=== PATIENT | male | born 1955 | race Caucasian/White ===

== ENCOUNTER 2018-06-23 16:35 | Observation (INO) | payer MEDICARE ==
[2018-06-23] VITALS (8 sets, daily range): BP systolic 117–170; BP diastolic 70–83
[~2018-06-23] VITALS: Ht 182.9 cm; Wt 92.6 kg
[~2018-06-23 16:35] MED LIST: ASP81CT PO; BENA40TA59; BENA40TA59 PO; CRANBERRY + VI1 EACH; DULO60CA6; HYDR-34; HYDR1TAB66 PO; IBP800T PO; MTP25TSR PO; OMEP20CA6; OMG1KC PO; SIMV20TA3 PO; SULF1TAB23 PO; SULF1TAB35 PO
--- OUTSIDE RECORDS SUMMARY | 2018-06-23 16:40 | XMS REPORT | Continuity of Care Document ---
Author Author [facility] Address Unknown Phone Unavailable Allergies There is no data. Medications There is no data. Problems Date Dx Coded Attending Type Code Diagnosis Diagnosed By 08/28/2008 SALVATORE MOSLEY MD 300.00 AN ANXIETY UNSPEC 08/28/2008 SALVATORE MOSLEY MD 311 MO DEPRESS NOS 08/28/2008 300.00 AN ANXIETY UNSPEC 08/28/2008 311 MO DEPRESS NOS 08/28/2008 300.00 AN ANXIETY UNSPEC 08/28/2008 311 MO DEPRESS NOS 08/28/2008 MARLOW DO SAMANTA K 300.00 AN ANXIETY UNSPEC 08/28/2008 MARLOW DO SAMANTA K 311 MO DEPRESS NOS 08/28/2008 ELE TORRES SAMANTA K 300.00 AN ANXIETY UNSPEC 08/28/2008 MARLOW DO SAMANTA K 311 MO DEPRESS NOS 08/28/2008 MARLOW DO, SAMANTA K 300.00 AN ANXIETY UNSPEC 08/28/2008 MARLOW DO, SAMANTA K 311 MO DEPRESS NOS 08/28/2008 MARLOW DO SAMANTA K 300.00 AN ANXIETY UNSPEC 08/28/2008 MARLOW DO, SAMANTA K 311 MO DEPRESS NOS 09/24/2008 SALVATORE MOSLEY MD 296.32 MO DEPRESSIVE RECURRENT MODERATE 09/24/2008 296.32 MO DEPRESSIVE RECURRENT MODERATE 09/24/2008 296.32 MO DEPRESSIVE RECURRENT MODERATE 09/24/2008 ZENOBIA MARLOW DOA K 296.32 MO DEPRESSIVE RECURRENT MODERATE 09/24/2008 ELE TORRES SAMANTA K 296.32 MO DEPRESSIVE RECURRENT MODERATE 09/24/2008 ZENOBIA MARLOW DOA K 296.32 MO DEPRESSIVE RECURRENT MODERATE 09/24/2008 ZENOBIA MARLOW DOA K 296.32 MO DEPRESSIVE RECURRENT MODERATE 10/31/2008 SALVATORE MOSLEY MD 307.47 SI DYSSOMNIA NOS 10/31/2008 307.47 SI DYSSOMNIA NOS 10/31/2008 307.47 SI DYSSOMNIA NOS 10/31/2008 MARLOW DO, SAMANTA K 307.47 SI DYSSOMNIA NOS 10/31/2008 MARLOW DO, SAMANTA K 307.47 SI DYSSOMNIA NOS 10/31/2008 MARLOW DO, SAMANTA K 307.47 SI DYSSOMNIA NOS 10/31/2008 MARLOW DO, SAMANTA K 307.47 SI DYSSOMNIA NOS 11/14/2008 SALVATORE MOSLEY MD 296.30 MO DEPRESSIVE RECURRENT UNSPECIFIED 11/14/2008 296.30 MO DEPRESSIVE RECURRENT UNSPECIFIED 11/14/2008 296.30 MO DEPRESSIVE RECURRENT UNSPECIFIED 11/14/2008 MARLOW DO SAMANTA K 296.30 MO DEPRESSIVE RECURRENT UNSPECIFIED 11/14/2008 MARLOW DO, SAMANTA K 296.30 MO DEPRESSIVE RECURRENT UNSPECIFIED 11/14/2008 MARLOW DO SAMANTA K 296.30 MO DEPRESSIVE RECURRENT UNSPECIFIED 11/14/2008 MARLOW DO SAMANTA K 296.30 MO DEPRESSIVE RECURRENT UNSPECIFIED 12/18/2008 DIMITRI ABBASI, SALVATORE 303.90 SA ALCOHOL DEPENDENCE 12/18/2008 303.90 SA ALCOHOL DEPENDENCE 12/18/2008 303.90 SA ALCOHOL DEPENDENCE 12/18/2008 MARLOW DO SAMANTA K 303.90 SA ALCOHOL DEPENDENCE 12/18/2008 MARLOW DO SAMANTA K 303.90 SA ALCOHOL DEPENDENCE 12/18/2008 MARLOW DO, SAMANTA K 303.90 SA ALCOHOL DEPENDENCE 12/18/2008 MARLOW DO SAMANTA K 303.90 SA ALCOHOL DEPENDENCE 01/07/2009 SALVATORE MOSLEY MD 296.31 MO DEPRESSIVE RECURRENT MILD 01/07/2009 296.31 MO DEPRESSIVE RECURRENT MILD 01/07/2009 296.31 MO DEPRESSIVE RECURRENT MILD 01/07/2009 ELE TORRES SAMANTA K 296.31 MO DEPRESSIVE RECURRENT MILD 01/07/2009 ELE TORRES SAMANTA K 296.31 MO DEPRESSIVE RECURRENT MILD 01/07/2009 MARLOW DO SAMANTA K 296.31 MO DEPRESSIVE RECURRENT MILD 01/07/2009 MARLOW DO SAMANTA K 296.31 MO DEPRESSIVE RECURRENT MILD 04/27/2010 SALVATORE MOSLEY MD 338.4 CHRONIC PAIN SYNDROME 04/27/2010 SALVATORE MOSLEY MD 401.1 HYPERTENSION, BENIGN ESSENTIAL 04/27/2010 338.4 CHRONIC PAIN SYNDROME 04/27/2010 401.1 HYPERTENSION, BENIGN ESSENTIAL 04/27/2010 338.4 CHRONIC PAIN SYNDROME 04/27/2010 401.1 HYPERTENSION, BENIGN ESSENTIAL 04/27/2010 MARLOW DO, SAMANTA K 338.4 CHRONIC PAIN SYNDROME 04/27/2010 MARLOW DO, SAMANTA K 401.1 HYPERTENSION, BENIGN ESSENTIAL 04/27/2010 MARLOW DO, SAMANTA K 338.4 CHRONIC PAIN SYNDROME 04/27/2010 MARLOW DO, SAMANTA K 401.1 HYPERTENSION, BENIGN ESSENTIAL 04/27/2010 MARLOW DO, SAMANTA K 338.4 CHRONIC PAIN SYNDROME 04/27/2010 MARLOW DO, SAMANTA K 401.1 HYPERTENSION, BENIGN ESSENTIAL 04/27/2010 MARLOW DO, SAMANTA K 338.4 CHRONIC PAIN SYNDROME 04/27/2010 MARLOW DO, SAMANTA K 401.1 HYPERTENSION, BENIGN ESSENTIAL 05/22/2010 DIMITRI ABBASI, SALVATORE 305.1 TOBACCO ABUSE 05/22/2010 305.1 TOBACCO ABUSE 05/22/2010 305.1 TOBACCO ABUSE 05/22/2010 MARLOW DO, SAMANTA K 305.1 TOBACCO ABUSE 05/22/2010 MARLOW DO, SAMANTA K 305.1 TOBACCO ABUSE 05/22/2010 MARLOW DO, SAMANTA K 305.1 TOBACCO ABUSE 05/22/2010 MARLOW DO, SAMANTA K 305.1 TOBACCO ABUSE 11/11/2010 DIMITRI ABBASI, SALVATORE 601.9 PROSTATITIS UNSPECIFIED 11/11/2010 DIMITRI ABBASI, SALVATORE 790.29 HYPERGLYCEMIA 11/11/2010 601.9 PROSTATITIS UNSPECIFIED 11/11/2010 790.29 HYPERGLYCEMIA 11/11/2010 601.9 PROSTATITIS UNSPECIFIED 11/11/2010 790.29 HYPERGLYCEMIA 11/11/2010 MARLOW DO, SAMANTA K 601.9 PROSTATITIS UNSPECIFIED 11/11/2010 MARLOW DO, SAMANTA K 790.29 HYPERGLYCEMIA 11/11/2010 MARLOW DO, SAMANTA K 601.9 PROSTATITIS UNSPECIFIED 11/11/2010 MARLOW DO, SAMANTA K 790.29 HYPERGLYCEMIA 11/11/2010 MARLOW DO, SAMANTA K 601.9 PROSTATITIS UNSPECIFIED 11/11/2010 MARLOW DO, SAMANTA K 790.29 HYPERGLYCEMIA 11/11/2010 MARLOW DO, SAMANTA K 601.9 PROSTATITIS UNSPECIFIED 11/11/2010 MARLOW DO, SAMANTA K 790.29 HYPERGLYCEMIA 12/04/2010 DIMITRI ABBASI, SALVATORE 466.0 BRONCHITIS, ACUTE 12/04/2010 SALVATORE MOSLEY MD V04.81 Flu Dx (3 Yrs And Above, Im) 12/04/2010 SALVATORE MOSLEY MD V65.42 COUNSELING ON SMOKING CESSATION 12/04/2010 466.0 BRONCHITIS, ACUTE 12/04/2010 V04.81 Flu Dx (3 Yrs And Above, Im) 12/04/2010 V65.42 COUNSELING ON SMOKING CESSATION 12/04/2010 466.0 BRONCHITIS, ACUTE 12/04/2010 V04.81 Flu Dx (3 Yrs And Above, Im) 12/04/2010 V65.42 COUNSELING ON SMOKING CESSATION 12/04/2010 MARLOW DO SAMANTA K 466.0 BRONCHITIS, ACUTE 12/04/2010 MARLOW DO SAMANTA K V04.81 Flu Dx (3 Yrs And Above, Im) 12/04/2010 MARLOW DO SAMANTA K V65.42 COUNSELING ON SMOKING CESSATION 12/04/2010 MARLOW DO SAMANTA K 466.0 BRONCHITIS, ACUTE 12/04/2010 MARLOW DO SAMANTA K V04.81 Flu Dx (3 Yrs And Above, Im) 12/04/2010 MARLOW DO SAMANTA K V65.42 COUNSELING ON SMOKING CESSATION 12/04/2010 MARLOW DO SAMANTA K 466.0 BRONCHITIS, ACUTE 12/04/2010 MARLOW DO SAMANTA K V04.81 Flu Dx (3 Yrs And Above, Im) 12/04/2010 MARLOW DO SAMANTA K V65.42 COUNSELING ON SMOKING CESSATION 12/04/2010 MARLOW DO SAMANTA K 466.0 BRONCHITIS, ACUTE 12/04/2010 MARLOW DO SAMANTA K V04.81 Flu Dx (3 Yrs And Above, Im) 12/04/2010 MARLOW DO SAMANTA K V65.42 COUNSELING ON SMOKING CESSATION 01/25/2011 SALVATORE MOSLEY MD [id number] CHRONIC AIRWAY OBSTRUCTION NOT ELSEWHERE CLASSIFIED 01/25/2011 SALVATORE MOSLEY MD 599.0 Urinary Tract Infection 01/25/2011 496 CHRONIC AIRWAY OBSTRUCTION NOT ELSEWHERE CLASSIFIED 01/25/2011 599.0 Urinary Tract Infection 01/25/2011 496 CHRONIC AIRWAY OBSTRUCTION NOT ELSEWHERE CLASSIFIED 01/25/2011 599.0 Urinary Tract Infection 01/25/2011 SAMANTA MARLOW DO 496 CHRONIC AIRWAY OBSTRUCTION NOT ELSEWHERE CLASSIFIED 01/25/2011 MARLOW DO, SAMANTA K 599.0 Urinary Tract Infection 01/25/2011 MARLOW DO, SAMANTA K 496 CHRONIC AIRWAY OBSTRUCTION NOT ELSEWHERE CLASSIFIED 01/25/2011 MARLOW DO, SAMANTA K 599.0 Urinary Tract Infection 01/25/2011 MARLOW DO, SAMANTA K 496 CHRONIC AIRWAY OBSTRUCTION NOT ELSEWHERE CLASSIFIED 01/25/2011 MARLOW DO, SAMANTA K 599.0 Urinary Tract Infection 01/25/2011 MARLOW DO, SAMANTA K 496 CHRONIC AIRWAY OBSTRUCTION NOT ELSEWHERE CLASSIFIED 01/25/2011 MARLOW DO, SAMANTA K 599.0 Urinary Tract Infection 02/25/2011 DIMITRI ABBASI, SALVATORE 272.4 OTHER AND UNSPECIFIED HYPERLIPIDEMIA 02/25/2011 SALVATORE MOSLEY MD 414.00 CORONARY ATHEROSCLEROSIS OF UNSPECIFIED TYPE OF VESSEL DIOMEDE OR GRAFT 02/25/2011 272.4 OTHER AND UNSPECIFIED HYPERLIPIDEMIA 02/25/2011 414.00 CORONARY ATHEROSCLEROSIS OF UNSPECIFIED TYPE OF VESSEL DIOMEDE OR GRAFT 02/25/2011 272.4 OTHER AND UNSPECIFIED HYPERLIPIDEMIA 02/25/2011 414.00 CORONARY ATHEROSCLEROSIS OF UNSPECIFIED TYPE OF VESSEL DIOMEDE OR GRAFT 02/25/2011 MARLOW DO, SAMANTA K 272.4 OTHER AND UNSPECIFIED HYPERLIPIDEMIA 02/25/2011 MARLOW DO, SAMANTA K 414.00 CORONARY ATHEROSCLEROSIS OF UNSPECIFIED TYPE OF VESSEL DIOMEDE OR GRAFT 02/25/2011 MARLOW DO, SAMANTA K 272.4 OTHER AND UNSPECIFIED HYPERLIPIDEMIA 02/25/2011 MARLOW DO, SAMANTA K 414.00 CORONARY ATHEROSCLEROSIS OF UNSPECIFIED TYPE OF VESSEL DIOMEDE OR GRAFT 02/25/2011 MARLOW DO, SAMANTA K 272.4 OTHER AND UNSPECIFIED HYPERLIPIDEMIA 02/25/2011 MARLOW DO, SAMANTA K 414.00 CORONARY ATHEROSCLEROSIS OF UNSPECIFIED TYPE OF VESSEL DIOMEDE OR GRAFT 02/25/2011 MARLOW DO, SAMANTA K 272.4 OTHER AND UNSPECIFIED HYPERLIPIDEMIA 02/25/2011 MARLOW DO, SAMANTA K 414.00 CORONARY ATHEROSCLEROSIS OF UNSPECIFIED TYPE OF VESSEL DIOMEDE OR GRAFT 04/27/2011 SALVATORE MOSLEY MD 789.00 Abdominal Pain Unspecified Site 04/27/2011 789.00 Abdominal Pain Unspecified Site 04/27/2011 789.00 Abdominal Pain Unspecified Site 04/27/2011 MARLOW DO SAMANTA K 789.00 Abdominal Pain Unspecified Site 04/27/2011 MARLOW DO SAMANTA K 789.00 Abdominal Pain Unspecified Site 04/27/2011 SAMANTA MARLOW DO 789.00 Abdominal Pain Unspecified Site 04/27/2011 SAMANTA MARLOW DO 789.00 Abdominal Pain Unspecified Site 05/05/2011 SALVATORE MOSLEY MD [id number] Renal Failure Unspecified 05/05/2011 586 Renal Failure Unspecified 05/05/2011 586 Renal Failure Unspecified 05/05/2011 SAMANTA MARLOW DO 586 Renal Failure Unspecified 05/05/2011 SAMANTA MARLOW DO 586 Renal Failure Unspecified 05/05/2011 SAMANTA MARLOW DO K 586 Renal Failure Unspecified 05/05/2011 SAMANTA MARLOW DO K 586 Renal Failure Unspecified 10/19/2011 SALVATORE MOSLEY MD 214.0 LIPOMA OF SKIN AND SUBCUTANEOUS TISSUE OF FACE 10/19/2011 214.0 LIPOMA OF SKIN AND SUBCUTANEOUS TISSUE OF FACE 10/19/2011 214.0 LIPOMA OF SKIN AND SUBCUTANEOUS TISSUE OF FACE 10/19/2011 SAMANTA MARLOW DO 214.0 LIPOMA OF SKIN AND SUBCUTANEOUS TISSUE OF FACE 10/19/2011 SAMANTA MARLOW DO 214.0 LIPOMA OF SKIN AND SUBCUTANEOUS TISSUE OF FACE 10/19/2011 SAMANTA MARLOW DO 214.0 LIPOMA OF SKIN AND SUBCUTANEOUS TISSUE OF FACE 10/19/2011 SAMANTA MARLOW DO K 214.0 LIPOMA OF SKIN AND SUBCUTANEOUS TISSUE OF FACE 09/10/2013 SAMANTA MARLOW DO 491.21 OBSTRUCTIVE CHRONIC BRONCHITIS WITH (ACUTE) EXACERBATION 09/10/2013 SAMANTA MARLOW DO 491.21 OBSTRUCTIVE CHRONIC BRONCHITIS WITH (ACUTE) EXACERBATION 09/10/2013 SAMANTA MARLOW DO 491.21 OBSTRUCTIVE CHRONIC BRONCHITIS WITH (ACUTE) EXACERBATION 01/01/2014 SAMANTA MARLOW DO 553.20 UNSPECIFIED VENTRAL HERNIA WITHOUT OBSTRUCTION OR GANGRENE 01/01/2014 SAMANTA MARLOW DO 601.1 CHRONIC PROSTATITIS 01/01/2014 SAMANTA MARLOW DO 788.1 DYSURIA Procedures Code Description [place] [address] ROUTINE VENIPUNCTURE 08/21/2012 95652 CMP 08/21/2012 97832 CBC 08/21/2012 40571 ROUTINE VENIPUNCTURE 08/24/2012 69887 LIPID PANEL 08/24/[address] CHEST W/O DYE 09/10/2013 19781 ROUTINE VENIPUNCTURE 09/26/2013 3437033 GFR CALC (RESULT ONLY) 09/26/2013 78651 CMP 09/26/2013 69241 LIPID PANEL 09/26/2013 23593 CULTURE URINE 01/01/2014 49266 UA W/ CULTURE IF INDICATED 01/01/2014 Results Test Result Range Comp. Metabolic Panel (14) - 11/23/16 18:19 Glucose, Serum 129 mg/dL 65-99 BUN 20 mg/dL 8-27 Creatinine, Serum 1.17 mg/dL 0.76-1.27 eGFR If NonAfricn Am 66 mL/min/1.73 >59 eGFR If Africn Am 76 mL/min/1.73 >59 BUN/Creatinine Ratio 17 10-24 Sodium, Serum 139 mmol/L 134-144 Potassium, Serum 4.5 mmol/L 3.5-5.2 Chloride, Serum 98 mmol/L 96-106 Carbon Dioxide, Total 24 mmol/L 18-29 Calcium, Serum 10.1 mg/dL 8.6-10.2 Protein, Total, Serum 7.7 g/dL 6.0-8.5 Albumin, Serum 4.4 g/dL 3.6-4.8 Globulin, Total 3.3 g/dL 1.5-4.5 A/G Ratio 1.3 1.2-2.2 Bilirubin, Total <0.2 mg/dL 0.0-1.2 Alkaline Phosphatase, S 91 IU/L 39-117 AST (SGOT) 12 IU/L 0-40 ALT (SGPT) 13 IU/L 0-44 Prostate-Specific Ag, Serum - 11/23/16 18:19 Prostate Specific Ag, Serum 1.0 ng/mL 0.0-4.0 Encounters ACCT No. Visit Date/Time Discharge Status Pt. Type Provider Facility Loc./Unit Complaint [id number] 01/01/2014 09:42:00 01/01/2014 23:59:59 [facility] Outpatient SAMANTA MARLOW DO [id number] 09/26/2013 08:02:00 09/26/2013 23:59:59 [facility] Outpatient SAMANTA MARLOW DO [id number] 09/10/2013 10:44:00 09/10/2013 23:59:59 [facility] Outpatient SAMANTA MARLOW DO [id number] 08/21/2012 09:29:00 08/21/2012 23:59:59 [facility] Outpatient ELE SAMANTA TORRES Kathy [id number] 10/19/2011 10:32:00 10/19/2011 23:59:59 [facility]LS Outpatient SALVATORE MOSLEY MD [id number] 08/24/2012 07:57:00 Document Registration [id number] 08/21/2012 09:29:00 Document Registration [id number] 11/24/2016 08:38:00 Document Registration [id number] 09/17/2013 15:09:00 09/17/2013 23:59:59 CLS Outpatient
[2018-06-23] MEDS ORDERED: NITROGLYCERIN 0.4 MG SL TABS BTL 25'S SL ONE (16:41)
[2018-06-23] MEDS ORDERED: ASPIRIN 81 MG CHEW (CHILDREN'S ASA) ONE (16:41)
[2018-06-23] MEDS ORDERED: morphine INJ 10 MG/ML 1ML (SYR OR VIAL) IVP STA (16:58)
--- NOTE | 2018-06-23 16:59 | NUR ---
REPORT FROM DELFINO GARCIA
[2018-06-23] MEDS ORDERED: ASPIRIN 81 MG CHEW (CHILDREN'S ASA) PO ONE (17:00)
[2018-06-23 17:05] LABS: BASOPHILS % (AUTO) 0 % (0-10); EOSINOPHILS # (AUTO) 1.1 10^3/uL (0.0-0.3); EOSINOPHILS % (AUTO) 11 % (0-10); HEMATOCRIT 41 % (40-54); HEMOGLOBIN 13.8 G/DL (13.3-17.7); LYMPHOCYTES # (AUTO) 4.3 X 10^3 (1.0-4.0); LYMPHOCYTES % (AUTO) 41 % (12-44); MEAN CORPUSCULAR HEMOGLOBIN 30 PG (25-34); MEAN CORPUSCULAR HGB CONC 33 G/DL (32-36); MEAN CORPUSCULAR VOLUME 91 FL (80-99); MEAN PLATELET VOLUME 9.9 FL (7.4-10.4); MONOCYTES # (AUTO) 0.7 X 10^3 (0.0-1.0); MONOCYTES % (AUTO) 6 % (0-12); NEUTROPHILS # (AUTO) 4.4 X 10^3 (1.8-7.8); NEUTROPHILS % (AUTO) 42 % (42-75); PLATELET COUNT 250 10^3/uL (130-400); RED CELL DISTRIBUTION WIDTH 14.9 % (10.0-14.5); WHITE BLOOD COUNT 10.4 10^3/uL (4.3-11.0)
--- NOTE | 2018-06-23 17:12 | NUR ---
RADIOLOGY AT BEDSIDE
[2018-06-23 17:14] LABS: INR 0.9 (0.8-1.4); PROTHROMBIN TIME PATIENT 12.1 SEC (12.2-14.7)
[2018-06-23 17:20] LABS: ALANINE AMINOTRANSFERASE 14 U/L (0-55); ALBUMIN 4.4 GM/DL (3.2-4.5); ALKALINE PHOSPHATASE 100 U/L (40-136); BILIRUBIN,TOTAL 0.4 MG/DL (0.1-1.0); BUN/CREATININE RATIO 15; CALCIUM 10.5 MG/DL (8.5-10.1); CARBON DIOXIDE 24 MMOL/L (21-32); CHLORIDE 107 MMOL/L (98-107); CREATININE SERUM 1.37 MG/DL (0.60-1.30); GFR ESTIMATED 52; GLUCOSE 227 MG/DL (70-105); LIPASE 45 U/L (8-78); MAGNESIUM 2.1 MG/DL (1.8-2.4); POTASSIUM 4.3 MMOL/L (3.6-5.0); SODIUM 139 MMOL/L (135-145); TOTAL PROTEIN 8.1 GM/DL (6.4-8.2)
--- NOTE | 2018-06-23 17:35 | ED Chest Pain ---
General Chief Complaint: Chest Pain Stated Complaint: CHEST PAIN Nursing Triage Note: PATIENT WITH HX OF CABG HERE FOR CONCERNS ABOUT SEVERE CHEST PAIN. PAIN IS 8/10 IN CENTER OF CHEST RADIATING TO BACK. PATIENT IS BELCHING FREQUENTLY. DENIES SOB AND N/V. Nursing Sepsis Screen: No Definite Risk Source: patient, old records Exam Limitations: no limitations History of Present Illness Date Seen by Provider: Jun 23, 2018 Time Seen by Provider: 16:40 Initial Comments This 63 year old gentleman presents to the emergency room with complaints of intense central chest pain. He had some associated nausea which has now dissipated. He states the pain started this morning, dissipated, and then returned with more intensity. He has a history of coronary artery disease status post CABG in 2009. 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 He continues to smoke. He has excessive belching which she said occurred with his first acute coronary syndrome episode. He rates his pain as 7 or 8 out of 10 and he is in distress upon arrival. Pain seems to radiate to the back. Allergies and Home Medications Allergies Coded Allergies: NKANo Known Allergies (Unverified Allergy, Mild, 07/20/09) Home Medications Aspirin 81 Mg Chew, 1 PO QID, (Reported) Hydrocodone Bit/Acetaminophen 1 Each Tablet, PO PRN, (Reported) Metoprolol Succinate 25 Mg Tab.sr.24h, 1 PO BID, (Reported) Sulfamethoxazole/Trimethoprim 1 Each Tablet, 1 EACH PO BID Prescribed by: BRETT CAZARES on 07/24/10 1534 Patient Home Medication List Home Medication List Reviewed: Yes Review of Systems Review of Systems Constitutional: no symptoms reported EENTM: No Symptoms Reported Respiratory: No Symptoms Reported Cardiovascular: See HPI Gastrointestinal: See HPI Genitourinary: No Symptoms Reported Musculoskeletal: no symptoms reported Skin: no symptoms reported Psychiatric/Neurological: No Symptoms Reported Endocrine: No Symptoms Reported Hematologic/Lymphatic: No Symptoms Reported Past Eghmjmn-Tnxigi-Hpkqes Hx Past Med/Social Hx: Reviewed Nursing Past Med/Soc Hx Patient Social History Alcohol Use: Denies Use Recreational Drug Use: Yes (HX OF ETOH) Smoking Status: Current Everyday Smoker Type Used: Cigarettes 2nd Hand Smoke Exposure: Yes Recent Foreign Travel: No Contact w/Someone Who Travel: No Recent Infectious Disease Expo: No Recent Hopitalizations: No Immunizations Up To Date Date of Influenza Vaccine: Mar 04, 2011 Seasonal Allergies Seasonal Allergies: No Past Medical History Surgeries: Yes CABG Respiratory: No Cardiac: Yes Coronary Artery Disease, Heart Attack, High Cholesterol, Hypertension, Palpitations Neurological: No Genitourinary: No Gastrointestinal: No Musculoskeletal: No Endocrine: No HEENT: No Cancer: No Psychosocial: No Integumentary: No Physical Exam Vital Signs Vital Signs - First Documented 06/23/18 16:35 Temp 98.0 Pulse 75 Resp 18 B/P (MAP) 208/96 (133) Pulse Ox 100 O2 Delivery Room Air Capillary Refill : Less Than 3 Seconds Height, Weight, BMI Height: 6'2.00" Weight: 210lbs. 0oz. 95.407569pz; BMI Method:Stated General Appearance: WD/WN, Moderate Distress HEENT: PERRL/EOMI, Normal ENT Inspection Neck: Normal Inspection Respiratory: Chest Non Tender, Lungs Clear, Normal Breath Sounds, No Accessory Muscle Use, No Respiratory Distress Cardiovascular: Regular Rate, Rhythm, No Edema, No Murmur Gastrointestinal: Normal Bowel Sounds, Non Tender, Soft, Other (soft bulging abdominal hernia in the central abdomen) Extremity: Normal Inspection, Non Tender, No Pedal Edema Neurologic/Psychiatric: Alert, Oriented x3, No Motor/Sensory Deficits, Normal Mood/Affect, clark driver II-XII Norm as Tested Skin: Normal Color, Warm/Dry Progress/Results/Core Measures Results/Orders Lab Results Laboratory Tests Test 06/23/18 16:40 Range/Units White Blood Count 10.4 4.3-11.0 10^3/uL Red Blood Count 4.54 4.35-5.85 10^6/uL Hemoglobin 13.8 13.3-17.7 G/DL Hematocrit 41 40-54 % Mean Corpuscular Volume 91 80-99 FL Mean Corpuscular Hemoglobin 30 25-34 PG Mean Corpuscular Hemoglobin Concent 33 32-36 G/DL Red Cell Distribution Width 14.9 H 10.0-14.5 % Platelet Count 250 130-400 10^3/uL Mean Platelet Volume 9.9 7.4-10.4 FL Neutrophils (%) (Auto) 42 42-75 % Lymphocytes (%) (Auto) 41 12-44 % Monocytes (%) (Auto) 6 0-12 % Eosinophils (%) (Auto) 11 H 0-10 % Basophils (%) (Auto) 0 0-10 % Neutrophils # (Auto) 4.4 1.8-7.8 X 10^3 Lymphocytes # (Auto) 4.3 H 1.0-4.0 X 10^3 Monocytes # (Auto) 0.7 0.0-1.0 X 10^3 Eosinophils # (Auto) 1.1 H 0.0-0.3 10^3/uL Basophils # (Auto) 0.0 0.0-0.1 10^3/uL Prothrombin Time 12.1 L 12.2-14.7 SEC INR Comment 0.9 0.8-1.4 Activated Partial Thromboplast Time 30 24-35 SEC D-Dimer 1.36 H 0.00-0.49 UG/ML Sodium Level 139 135-145 MMOL/L Potassium Level 4.3 3.6-5.0 MMOL/L Chloride Level 107 98-107 MMOL/L Carbon Dioxide Level 24 21-32 MMOL/L Anion Gap 8 5-14 MMOL/L Blood Urea Nitrogen 20 H 7-18 MG/DL Creatinine 1.37 H 0.60-1.30 MG/DL Estimat Glomerular Filtration Rate 52 BUN/Creatinine Ratio 15 Glucose Level 227 H 70-105 MG/DL Calcium Level 10.5 H 8.5-10.1 MG/DL Corrected Calcium 10.2 H 8.5-10.1 MG/DL Magnesium Level 2.1 1.8-2.4 MG/DL Total Bilirubin 0.4 0.1-1.0 MG/DL Aspartate Amino Transf (AST/SGOT) 14 5-34 U/L Alanine Aminotransferase (ALT/SGPT) 14 0-55 U/L Alkaline Phosphatase 100 40-136 U/L Myoglobin 55.7 10.0-92.0 NG/ML Troponin I < 0.028 <0.028 NG/ML Total Protein 8.1 6.4-8.2 GM/DL Albumin 4.4 3.2-4.5 GM/DL Lipase 45 8-78 U/L My Orders Orders - SALVATORE MOSLEY MD Ekg Tracing (06/23/18 16:35) Aspirin Chewable Tablet (Baby Aspirin Ch (06/23/18 16:41) Nitroglycerin 0.4 Mg Btl 25's (Nitrostat (06/23/18 16:41) Cbc With Automated Diff (06/23/18 16:56) Magnesium (06/23/18 16:56) Chest 1 View, Ap/Pa Only (06/23/18 16:56) Cardiac Profile 1 (06/23/18 16:56) Comprehensive Metabolic Panel (06/23/18 16:56) Myoglobin Serum (06/23/18 16:56) Protime With Inr (06/23/18 16:56) Partial Thromboplastin Time (06/23/18 16:56) O2 (06/23/18 16:56) Monitor-Rhythm Ecg Trace Only (06/23/18 16:56) Lipid Panel (06/24/18 06:00) Saline Lock/Iv-Start (06/23/18 16:56) Lipase (06/23/18 16:56) Fibrin Degradation Products (06/23/18 16:56) Aspirin Chewable Tablet (Baby Aspirin Ch (06/23/18 17:00) Morphine Injection (Morphine Injection (06/23/18 16:58) Ct Angio Chest W (06/23/18 17:23) Iohexol Injection (Omnipaque 350 Mg/Ml 1 (06/23/18 17:45) Received Contrast (Hold Metformin- Contr (06/23/18 17:45) Sodium Chloride Flush (Catheter Flush Sy (06/23/18 17:45) Ekg Tracing (06/23/18 17:36) Enoxaparin Injection (Lovenox Injection) (06/23/18 19:00) Metoprolol Succinate (Xl) Tab (Toprol Xl (06/23/18 19:00) Medications Given in ED Current Medications Medications Dose Ordered Sig/Naomie Route Start Time Stop Time Status Last Admin Dose Admin Aspirin 324 mg ONCE ONCE PO 06/23/18 17:00 06/23/18 17:01 DC 06/23/18 16:42 324 MG Iohexol 100 ml ONCE ONCE IV 06/23/18 17:45 06/23/18 17:46 DC 06/23/18 18:05 100 ML Nitroglycerin 0.4 mg STK-MED ONCE SL 06/23/18 16:41 06/23/18 16:45 DC 06/23/18 16:42 0.4 MG Sodium Chloride 10 ml NEEDED PRN IV 06/23/18 17:45 06/23/18 18:05 10 ML Vital Signs/I&O 06/23/18 16:35 Temp 98.0 Pulse 75 Resp 18 B/P (MAP) 208/96 (133) Pulse Ox 100 O2 Delivery Room Air Blood Pressure Mean: 133 Progress Progress Note #1: Time: 17:36 Progress Note Patient was seen and examined upon arrival. He was found to be in distress due to chest pain. Chest pain protocol was ordered. Aspirin and nitroglycerin were administered. Patient's blood pressure was initially over 200 systolic. This dropped to 116 after the nitroglycerin. He did have some improvement in his pain. Pain was further treated with morphine. Pain and blood pressure were rebounding not long after. Blood pressure rebounded up to the 170 systolic. A second dose of nitroglycerin was administered which dropped his blood pressure down to the 90s. This did however improve his pain. CT angiogram of the chest has been ordered to rule out aortic pathology and pulmonary embolism. A repeat EKG has also been ordered. Progress Note #2: Time: 19:04 Progress Note Repeat EKG was unchanged. CT angiogram of the chest showed no pulmonary emboli in the large vessels but distal small vessels were not well visualized. There is no aortic pathology. Patient's blood pressure after first nitroglycerin dropped from systolic 200s down to 116. After the second nitroglycerin it dropped from the 170s down to the 90s. Patient had been given morphine as well. Pain eventually dissipated and patient was feeling well. Case was discussed with Dr. Khan who requested Lovenox at therapeutic doses and Toprol- XL 50 mg now and daily. Case was also discussed with Dr. Carl. She requested hydration with a liter of normal saline due to contrast administration and elevated creatinine. A gallstone was noted on the CT scan. An ultrasound of the gallbladder will be performed in the morning if available. Patient's blood pressure stabilized prior to admission. EKG #1: EKG Time: 16:35 Rate: 75 Rhythm: Normal Sinus Intervals: Normal Comment Normal sinus rhythm with no ST elevation or depression. PVCs noted. No significant axis deviation or abnormal intervals. EKG #2: EKG Time: 16:35 Rate: 75 Rhythm: Normal Sinus Intervals: Normal ECG Impression: Normal Comment Normal sinus rhythm with no ST elevation or depression. Borderline left axis deviation. PVCs noted. No significant interval changes. No dynamic change since prior EKG. Diagnostic Imaging Diagonstic Imaging: Xray Plain Films/CT/US/NM/MRI: chest Comments Chest x-ray viewed by me and report reviewed. See report below: NAME: JOE ARTEAGA JR [facility] REC#: [id number] PT STATUS: REG ER : 1955 PHYSICIAN: SALVATORE MOSLEY MD ADMIT DATE: 06/23/18/ER Signed Date of Exam: 06/23/18 CHEST 1 VIEW, AP/PA ONLY INDICATION: History of coronary artery bypass graft surgery. Patient having chest pain and frequent belching. Pain is seen in the center of the chest radiating to the back. COMPARISON STUDY: Chest from 05/01/2010. FINDINGS: Frontal view of the chest demonstrates cardiomegaly with previous coronary artery bypass graft changes. There are a few Komal B-lines with increased interstitial markings, consistent with pulmonary edema. No pleural effusions are present. IMPRESSION: There is cardiomegaly with mild pulmonary edema. Dictated by: Dictated on workstation # [id number] Dict: 06/23/181747 Trans: 06/23/181850 Interpreted by: MICHELLE HERNANDEZ MD Electronically signed by: MICHELLE HERNANDEZ MD 06/23/181850 Diagonstic Imaging: CT Plain Films/CT/US/NM/MRI: chest Comments CT angiogram chest viewed by me and report reviewed. See report below: NAME: JOE ARTEAGA JR [facility] REC#: [id number] PT STATUS: REG ER : 1955 PHYSICIAN: SALVATORE MOSLEY MD ADMIT DATE: 06/23/18/ER Signed Date of Exam: 06/23/18 CT ANGIO CHEST W PROCEDURE: CT angiography of the chest with contrast. TECHNIQUE: Multiple contiguous axial images were obtained through the chest after uneventful bolus administration of intravenous contrast. 2D reconstructed CTA MIP acquisitions were also performed. Auto Exposure Controls were utilized during the CT exam to meet ALARA standards for radiation dose reduction. INDICATION: Chest pressure, pain, shortness of breath. The patient was working with [employer] yesterday. COMPARISON STUDY: Noncontrast CT of the chest from 09/17/2013. FINDINGS: No definite pulmonary emboli are identified. There is excellent opacification of the central pulmonary arteries and upper lobe pulmonary arteries. Lower lobe pulmonary arteries are not as well opacified due to bolus timing. No definite pulmonary emboli are seen. Heart size slightly prominent. Coronary artery bypass graft changes are present. There is no abnormal adenopathy. No pleural or pericardial effusions are present. Visualized portions of the abdomen demonstrate a gallstone on the most inferior scan. A low density left adrenal nodule appears stable. Emphysematous changes are again identified. There are no infiltrates or masses. The osseous structures appear normal. IMPRESSION: 1. No definite pulmonary emboli are identified. The vessels in the lower lungs are not well opacified and small emboli could be missed. 2. COPD with emphysematous changes again identified. 3. Cholelithiasis. Dictated by: Dictated on workstation # [id number] Dict: 06/23/18 181 Trans: 06/23/181850 Interpreted by: MICHELLE HERNANDEZ MD Electronically signed by: MICHELLE HERNANDEZ MD 06/23/181850 Departure Communication (Admissions) Time/Spoke to Admitting Phy: 18:55 Dr. Carl Time/Spoke to Consulting Phy: 18:50 Dr. Khan Impression Primary Impression: Chest pain Qualified Codes: R07.9 - Chest pain, unspecified Additional Impressions: Coronary artery disease Qualified Codes: I25.10 - Atherosclerotic heart disease of [place] coronary artery without angina pectoris Hypertension Qualified Codes: I10 - Essential (primary) hypertension Disposition: ADMITTED INPATIENT Condition: Improved Admissions Decision to Admit Reason: Admit from ER (General) Decision to Admit/Date: Jun 23, 2018 Time/Decision to Admit Time: 16:50 Departure-Patient Inst. Referrals: [facility]/ (PCP) Primary Care Physician KISHA PERDOMO APRN (Family) Primary Care Physician SALVATORE MOSLEY MD Jun 23, 2018 17:35
[2018-06-23] MEDS ORDERED: HOLD METFORMIN - RECEIVED CONTRAST 20 ML VIAL IV SCH (17:45)
[2018-06-23] MEDS ORDERED: IOHEXOL 350 MG/ML 100 ML (OMNIPAQUE 350) VIAL IV ONE (17:45)
[2018-06-23] MEDS ORDERED: CATHETER FLUSH 10 ML SYR IV PRN ×2 (17:45→20:30)
--- NOTE | 2018-06-23 17:53 | Diagnostic Imaging Report ---
INDICATION: History of coronary artery bypass graft surgery. Patient having chest pain and frequent belching. Pain is seen in the center of the chest radiating to the back. COMPARISON STUDY: Chest from 05/01/2010. FINDINGS: Frontal view of the chest demonstrates cardiomegaly with previous coronary artery bypass graft changes. There are a few Komal B-lines with increased interstitial markings, consistent with pulmonary edema. No pleural effusions are present. IMPRESSION: There is cardiomegaly with mild pulmonary edema. Dictated by: Dictated on workstation # [id number]
--- NOTE | 2018-06-23 18:31 | Diagnostic Imaging Report ---
PROCEDURE: CT angiography of the chest with contrast. TECHNIQUE: Multiple contiguous axial images were obtained through the chest after uneventful bolus administration of intravenous contrast. 2D reconstructed CTA MIP acquisitions were also performed. Auto Exposure Controls were utilized during the CT exam to meet ALARA standards for radiation dose reduction. INDICATION: Chest pressure, pain, shortness of breath. 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 COMPARISON STUDY: Noncontrast CT of the chest from 09/17/2013. FINDINGS: No definite pulmonary emboli are identified. There is excellent opacification of the central pulmonary arteries and upper lobe pulmonary arteries. Lower lobe pulmonary arteries are not as well opacified due to bolus timing. No definite pulmonary emboli are seen. Heart size slightly prominent. Coronary artery bypass graft changes are present. There is no abnormal adenopathy. No pleural or pericardial effusions are present. Visualized portions of the abdomen demonstrate a gallstone on the most inferior scan. A low density left adrenal nodule appears stable. Emphysematous changes are again identified. There are no infiltrates or masses. The osseous structures appear normal. IMPRESSION: 1. No definite pulmonary emboli are identified. The vessels in the lower lungs are not well opacified and small emboli could be missed. 2. COPD with emphysematous changes again identified. 3. Cholelithiasis. Dictated by: Dictated on workstation # [id number]
--- NOTE | 2018-06-23 18:46 | NUR ---
PT UP TO BR AT THIS TIME W/O ASSIST
[2018-06-23] MEDS ORDERED: ENOXAPARIN 100 MG/1 ML (LOVENOX) SYR SC ONE (19:00)
[2018-06-23] MEDS ORDERED: meTOproloL SUCCINATE 50 MG (TOPROL XL) TAB PO SCH (19:00)
[2018-06-23] MEDS ORDERED: NS IV 1000 ML 1,000 ML IV ONE (20:30)
[2018-06-23] MEDS ORDERED: NITROGLYCERIN 0.4 MG SL TABS BTL 25'S SL PRN (20:30)
[2018-06-23] MEDS: morphine INJ 10 MG/ML 1ML (SYR OR VIAL) IV PRN (21:10)
[2018-06-24] VITALS (7 sets, daily range): BP systolic 116–164; BP diastolic 62–84
[2018-06-24] MEDS: morphine INJ 10 MG/ML 1ML (SYR OR VIAL) IV PRN (05:45)
[2018-06-24 06:01] LABS: BASOPHILS % (AUTO) 0 % (0-10); EOSINOPHILS # (AUTO) 0.9 10^3/uL (0.0-0.3); EOSINOPHILS % (AUTO) 9 % (0-10); HEMATOCRIT 37 % (40-54); HEMOGLOBIN 12.1 G/DL (13.3-17.7); LYMPHOCYTES # (AUTO) 3.5 X 10^3 (1.0-4.0); LYMPHOCYTES % (AUTO) 37 % (12-44); MEAN CORPUSCULAR HEMOGLOBIN 30 PG (25-34); MEAN CORPUSCULAR HGB CONC 32 G/DL (32-36); MEAN CORPUSCULAR VOLUME 92 FL (80-99); MEAN PLATELET VOLUME 9.9 FL (7.4-10.4); MONOCYTES # (AUTO) 0.6 X 10^3 (0.0-1.0); MONOCYTES % (AUTO) 6 % (0-12); NEUTROPHILS # (AUTO) 4.7 X 10^3 (1.8-7.8); NEUTROPHILS % (AUTO) 49 % (42-75); PLATELET COUNT 208 10^3/uL (130-400); RED CELL DISTRIBUTION WIDTH 14.9 % (10.0-14.5); WHITE BLOOD COUNT 9.6 10^3/uL (4.3-11.0)
[2018-06-24 06:21] LABS: NEUTROPHILS % (MANUAL) 46 %
[2018-06-24 06:22] LABS: EOSINOPHILS % (MANUAL) 10 %; LYMPHOCYTES % (MANUAL) 41 %; MONOCYTES % (MANUAL) 3 %; RBC MORPH NORMAL
[2018-06-24 06:24] LABS: BUN/CREATININE RATIO 15; CALCIUM 9.7 MG/DL (8.5-10.1); CARBON DIOXIDE 22 MMOL/L (21-32); CHLORIDE 109 MMOL/L (98-107); CHOLESTEROL 158 MG/DL (< 200); GFR ESTIMATED > 60; GLUCOSE 148 MG/DL (70-105); HDL CHOLESTEROL 32 MG/DL (40-60); POTASSIUM 4.1 MMOL/L (3.6-5.0); SODIUM 140 MMOL/L (135-145); TRIGLYCERIDES 189 MG/DL (<150); VLDL CHOLESTEROL 38 MG/DL (5-40)
[2018-06-24] MEDS ORDERED: ONDANSETRON 4 MG/2 ML (SDV) Z0FRAN IVP NR (08:45)
[2018-06-24] MEDS ORDERED: NS IV 1000 ML 1,000 ML IV SCH (08:45)
[2018-06-24] MEDS ORDERED: meTOproloL SUCCINATE 50 MG (TOPROL XL) TAB PO SCH (09:00)
[2018-06-24] MEDS ORDERED: ASPIRIN E.C. 81 MG (ECOTRIN) TAB PO SCH (09:00)
--- NOTE | 2018-06-24 10:50 | Diagnostic Imaging Report ---
PROCEDURE: US Gallbladder. TECHNIQUE: Multiple real-time grayscale images were obtained over the right upper quadrant in various projections. INDICATION: Chest pain. FINDINGS: The liver is normal in size without focal lesions. There is cholelithiasis. Gallbladder wall measures 3 mm. There is no pericholecystic fluid. The pancreas and common bile ducts are obscured by bowel gas. Right kidney is normal. No ascites. IMPRESSION: Cholelithiasis and mild gallbladder wall thickening. Acute cholecystitis cannot be entirely excluded. Recommend clinical correlation. If warranted, followup with a nuclear medicine hepatobiliary scan. Dictated by: Dictated on workstation # [id number]
--- NOTE | 2018-06-24 11:56 | History & Physicial (CHS) ---
HPI History of Present Illness: 63 yo M that presented to ER with chest pain. Patient has a h/o CABG in 2009 and states that the pain he was feeling yesterday and this AM reminded him of the same type of pain. States that he has some pain this AM but it was not full blown like last night when he came in. States that the pain was in the center of his chest and he had some shortness of breath with the pain. Denies any pain at this time. States that he also had reflux pain. States that he was walking around his house when it started. Source: patient, spouse Exam Limitations: no limitations Date seen by provider: Jun 24, 2018 Time Seen by Provider: 11:00 Attending Physician La Nena Carl MD [facility] [place] Consult Date of Admission Jun 23, 2018 at 18:59 Home Medications Home Medications Reviewed patient Home Medication Reconciliation performed by pharmacy medication reconciliations headend technician and/or nursing. Patients Allergies have been reviewed. Allergies Coded Allergies: NKANo Known Allergies (Unverified Allergy, Mild, 07/20/09) NRG-Irfazo-Ftives Hx Patient Social History Marrital Status: Living Status: Home with Alcohol Use: Past History Recreational Drug Use: No Smoking Status: Current Everyday Smoker Type Used: Cigarettes 2nd Hand Smoke Exposure: Yes Recent Foreign Travel: No Contact w/other who traveled: No Recent Hopitalizations: No Recent Infectious Disease Expo: No Physical Abuse Screen: No Sexual Abuse: No Immunizations Up To Date Date of Influenza Vaccine: Mar 04, 2011 Past Medical History CAD with CABG x5 HTN HLD Tobacco abuse Family Medical History Significant Family History: CAD Under 55 Years Old, Hypertension Review of Systems ([facility]C) Constitutional: no symptoms reported; No chills, No fever, No weakness EENTM: no symptoms reported Respiratory: no symptoms reported; No cough, No dyspnea on exertion, No orthopnea, No short of breath Cardiovascular: chest pain; No edema, No palpitations Gastrointestinal: no symptoms reported; No abdominal pain, No constipation, No diarrhea; nausea Genitourinary: no symptoms reported; No dysuria, No frequency, No hematuria Musculoskeletal: no symptoms reported; No muscle pain, No neck pain Skin: no symptoms reported Psychiatric/Neurological: No Symptoms Reported Reviewed Test Results Reviewed Test Results Lab Laboratory Tests Test 06/23/18 16:40 06/23/18 22:45 06/24/18 05:23 06/24/18 05:28 Range/Units White Blood Count 10.4 9.6 4.3-11.0 10^3/uL Red Blood Count 4.54 4.07 L 4.35-5.85 10^6/uL Hemoglobin 13.8 12.1 L 13.3-17.7 G/DL Hematocrit 41 37 L 40-54 % Mean Corpuscular Volume 91 92 80-99 FL Mean Corpuscular Hemoglobin 30 30 25-34 PG Mean Corpuscular Hemoglobin Concent 33 32 32-36 G/DL Red Cell Distribution Width 14.9 H 14.9 H 10.0-14.5 % Platelet Count 250 208 130-400 10^3/uL Mean Platelet Volume 9.9 9.9 7.4-10.4 FL Neutrophils (%) (Auto) 42 49 42-75 % Lymphocytes (%) (Auto) 41 37 12-44 % Monocytes (%) (Auto) 6 6 0-12 % Eosinophils (%) (Auto) 11 H 9 0-10 % Basophils (%) (Auto) 0 0 0-10 % Neutrophils # (Auto) 4.4 4.7 1.8-7.8 X 10^3 Lymphocytes # (Auto) 4.3 H 3.5 1.0-4.0 X 10^3 Monocytes # (Auto) 0.7 0.6 0.0-1.0 X 10^3 Eosinophils # (Auto) 1.1 H 0.9 H 0.0-0.3 10^3/uL Basophils # (Auto) 0.0 0.0 0.0-0.1 10^3/uL Prothrombin Time 12.1 L 12.2-14.7 SEC INR Comment 0.9 0.8-1.4 Activated Partial Thromboplast Time 30 24-35 SEC D-Dimer 1.36 H 0.00-0.49 UG/ML Sodium Level 139 140 135-145 MMOL/L Potassium Level 4.3 4.1 3.6-5.0 MMOL/L Chloride Level 107 109 H 98-107 MMOL/L Carbon Dioxide Level 24 22 21-32 MMOL/L Anion Gap 8 9 5-14 MMOL/L Blood Urea Nitrogen 20 H 16 7-18 MG/DL Creatinine 1.37 H 1.10 0.60-1.30 MG/DL Estimat Glomerular Filtration Rate 52 > 60 BUN/Creatinine Ratio 15 15 Glucose Level 227 H 148 H 70-105 MG/DL Calcium Level 10.5 H 9.7 8.5-10.1 MG/DL Corrected Calcium 10.2 H 8.5-10.1 MG/DL Magnesium Level 2.1 1.8-2.4 MG/DL Total Bilirubin 0.4 0.1-1.0 MG/DL Aspartate Amino Transf (AST/SGOT) 14 5-34 U/L Alanine Aminotransferase (ALT/SGPT) 14 0-55 U/L Alkaline Phosphatase 100 40-136 U/L Myoglobin 55.7 10.0-92.0 NG/ML Troponin I < 0.028 0.036 H <0.028 NG/ML Total Protein 8.1 6.4-8.2 GM/DL Albumin 4.4 3.2-4.5 GM/DL Lipase 45 8-78 U/L Total Creatine Kinase 83 30-200 U/L Neutrophils % (Manual) 46 % Lymphocytes % (Manual) 41 % Monocytes % (Manual) 3 % Eosinophils % (Manual) 10 % Blood Morphology Comment NORMAL Triglycerides Level 189 H <150 MG/DL Cholesterol Level 158 < 200 MG/DL LDL Cholesterol Direct 99 1-129 MG/DL VLDL Cholesterol 38 5-40 MG/DL HDL Cholesterol 32 L 40-60 MG/DL Physical Exam-([facility]) Physical Exam Vital Signs VS - Last 72 Hours, by Label 06/23/18 06/23/18 06/23/18 06/23/18 16:35 20:06 20:10 20:15 Temp 98.0 98.6 Pulse 75 79 82 Resp 18 18 20 B/P (MAP) 208/96 (133) 197/98 (131) 160/79 Pulse Ox 100 97 98 92 O2 Delivery Room Air Room Air Room Air Room Air 06/23/18 06/23/18 06/23/18 06/23/18 20:18 20:30 20:45 20:45 Temp 98.6 Pulse 82 76 89 80 Resp 20 B/P (MAP) 160/79 (106) 167/70 (102) 170/74 (106) Pulse Ox 98 94 93 O2 Delivery Room Air Room Air Room Air 06/23/18 06/23/18 06/23/18 06/23/18 21:00 21:15 22:00 23:00 Temp 98.7 Pulse 55 90 85 83 Resp 18 B/P (MAP) 143/80 (101) 117/83 (94) 156/77 (103) 156/72 (100) Pulse Ox 94 92 92 94 O2 Delivery Room Air Room Air Room Air Room Air 06/24/18 06/24/18 06/24/18 06/24/18 00:00 00:00 01:00 01:00 Temp 98.6 98.6 Pulse 89 78 78 Resp 18 18 B/P (MAP) 136/73 (94) 116/74 (88) Pulse Ox 92 91 92 O2 Delivery Room Air Room Air Room Air 06/24/18 06/24/18 06/24/18 06/24/18 04:15 04:15 07:00 08:00 Temp 97.4 97.3 Pulse 87 65 71 Resp 20 20 B/P (MAP) 164/64 (97) 147/65 (92) Pulse Ox 92 93 O2 Delivery Room Air Room Air Room Air 06/24/18 10:15 Pulse Ox 93 O2 Delivery Room Air Capillary Refill : Less Than 3 Seconds General Appearance: WD/WN, no apparent distress HEENT: PERRL/EOMI Neck: non-tender, full range of motion, supple, normal inspection; No carotid bruit Respiratory: chest non-tender, lungs clear, normal breath sounds, no respiratory distress, no accessory muscle use Cardiovascular: normal peripheral pulses, regular rate, rhythm, no edema, no murmur Gastrointestinal: normal bowel sounds, non tender, soft, no organomegaly Back: no CVA tenderness, no vertebral tenderness Extremities: normal range of motion, non-tender, no pedal edema, no calf tenderness, normal capillary refill Neurologic/Psychiatric: business control manager II-XII nml as tested, no motor/sensory deficits, alert, normal mood/affect, oriented x 3 Skin: normal color, warm/dry Lymphatic: no adenopathy Assessment/Plan Assessment/Plan Admission Status: Observation (1) Chest pain Status: Acute Assessment & Plan: - Due to history and concerning story, concerned about Unstable Angina, Will consult Cardiology, Trop elevated this AM Qualifiers: (2) Elevated troponin Status: Acute (3) HTN (hypertension) Status: Chronic Qualifiers: Qualified Codes: I10 - Essential (primary) hypertension (4) HLD (hyperlipidemia) Status: Chronic Qualifiers: Qualified Codes: E78.5 - Hyperlipidemia, unspecified (5) Gallstones Status: Chronic Assessment & Plan: - US shows gallstones, patient does not have any RUQ pain, unlikely source of pain (6) Tobacco abuse Status: Chronic Assessment & Plan: - Discussed the importance of cessation Clinical Quality Measures DVT/VTE Risk/Contraindication: Risk Factor Score Per Nursin RFS Level Per Nursing on Admit: 3=High Copy Copies To 1: Peggy MONAE APRN GAULT, HOLLY R MD Jun 24, 2018 11:56
--- NOTE | 2018-06-24 14:00 | NUR ---
DR TYLER HERE, ORDERED TO SCHEDULE HEART CATH HARESH at 1100, patient verbalized understanding
[2018-06-24] MEDS: ENOXAPARIN 100 MG/1 ML (LOVENOX) SYR SC SCH (14:43)
[2018-06-24] MEDS ORDERED: ASPIRIN 81 MG CHEW (CHILDREN'S ASA) PO NR (14:45)
[2018-06-24] MEDS ORDERED: CLOPIDOGREL 300 MG (PLAVIX) TABLET PO NR (14:45)
[2018-06-24] MEDS ORDERED: meTOproloL SUCCINATE 50 MG (TOPROL XL) TAB PO NR (14:46)
--- NOTE | 2018-06-24 14:55 | Consultation-Cardiology ---
HPI-Cardiology Cardiology Consultation: Date of Consultation 06/24/18 Time Seen by a Provider: 13:50 Date of Admission Attending Physician La Nena Carl MD Admitting Physician [place] Consulting Physician ARCHANA TYLER MD, MA, FACP, FACC, [facility], [facility] Physician requesting consult: Dr Carl HPI: Chief Complaint: CC: Chest pain HPI 63 yo man with known CAD and h/o CABG in 2011 presented to ER yesterday with cp. Has been having intermittent indigestion feeling lasting minutes to hours. For the last 48 hours has had several episodes of chest discomfort: mid sternal , mod to severe, radiating to the back, associated with some diaphoresis at times, lasting up to 30 min, pressure-like, not related to exertion, improved/ resolved with s/l NTG in ER. Has chronic exertional shortness of breath. No palp or syncope or leg swelling Review of Systems-Cardiology Review of Systems Constitutional: malaise; No weight loss, No weight gain Eyes: No vision change Ears/Nose/Throat: No ear discharge, No nasal drainage, No recent hearing loss Respiratory: As described under HPI Cardiovascular: As described under HPI Gastrointestinal: No constipation, No diarrhea, No nausea, No vomiting Genitourinary: No dysuria, No hematuria, No urine frequency changes Musculoskeletal: No joint pain Skin: No rash, No ulcerations Psychiatric/Neurological: No seizure, No focal weakness, No syncope Hematologic: No bleeding abnormalities [id number]-Supdie Hx Patient Social History Marrital Status: Living Status: Home with Alcohol Use: Past History Recreational Drug Use: No Smoking Status: Current Everyday Smoker Type Used: Cigarettes 2nd Hand Smoke Exposure: Yes Recent Foreign Travel: No Recent Infectious Disease Expo: No Hospitalization with Isolation: Denies Physical Abuse Screen: No Sexual Abuse: No Immunizations Up To Date Date of Influenza Vaccine: Mar 04, 2011 Past Medical History PMH As described under Assessment. Family Medical History Family Medical History: Does not report fam h/o early CAD or SCD Allergies and Home Medications Allergies Coded Allergies: NKANo Known Allergies (Unverified Allergy, Mild, 07/20/09) Home Medications Aspirin 81 Mg Chew, 1 PO QID, (Reported) Hydrocodone Bit/Acetaminophen 1 Each Tablet, PO PRN, (Reported) Metoprolol Succinate 25 Mg Tab.sr.24h, 1 PO BID, (Reported) Patient Home Medication List Home Medication List Reviewed: Yes Physical Exam-Cardiology Physical Exam Vital Signs/I&O 06/24/18 06/24/18 06/24/18 06/24/18 04:15 04:15 07:00 08:00 Temp 97.4 97.3 Pulse 87 65 71 Resp 20 20 B/P (MAP) 164/64 (97) 147/65 (92) Pulse Ox 92 93 O2 Delivery Room Air Room Air Room Air 06/24/18 06/24/18 06/24/18 06/24/18 09:00 10:15 12:00 12:00 Temp 97.2 Pulse 51 Resp 18 B/P (MAP) 158/74 (102) Pulse Ox 92 93 92 92 O2 Delivery Room Air Room Air Room Air Room Air 06/24/18 13:00 Pulse 64 06/24/18 00:00 Intake Total 250 ml Balance 250 ml Capillary Refill : Less Than 3 Seconds Constitutional: AAO x 3, well-developed, well-nourished HEENT: hearing is well preserved; No xanthelasmas are seen Neck: carotid pulses are 2 + bilaterally, with good upstrokes Respiratory: No accessory muscle use; other (fair to good bilat air entry) Cardiovascular: No regular rate-rhythm; S1 and S2, systolic murmur (faint CEDRICK at card base) Gastrointestinal: No tender; soft; No guarding, No rebound; audible bowel sounds Extremities: No clubbing, No cyanosis, No significant edema Neurologic/Psychiatric: oriented x 3, grossly intact, power is 5/5 both on sides Skin: No rash on exposed areas, No ulcerations on exposed areas Data Review Labs Laboratory Tests 06/23/18 16:40: White Blood Count 10.4, Red Blood Count 4.54, Hemoglobin 13.8, Hematocrit 41, Mean Corpuscular Volume 91, Mean Corpuscular Hemoglobin 30, Mean Corpuscular Hemoglobin Concent 33, Red Cell Distribution Width 14.9H, Platelet Count 250, Mean Platelet Volume 9.9, Neutrophils (%) (Auto) 42, Lymphocytes (%) (Auto) 41, Monocytes (%) (Auto) 6, Eosinophils (%) (Auto) 11H, Basophils (%) (Auto) 0, Neutrophils # (Auto) 4.4, Lymphocytes # (Auto) 4.3H, Monocytes # (Auto) 0.7, Eosinophils # (Auto) 1.1H, Basophils # (Auto) 0.0, Prothrombin Time 12.1L, INR Comment 0.9, Activated Partial Thromboplast Time 30, D-Dimer 1.36H, Sodium Level 139, Potassium Level 4.3, Chloride Level 107, Carbon Dioxide Level 24, Anion Gap 8, Blood Urea Nitrogen 20H, Creatinine 1.37H, Estimat Glomerular Filtration Rate 52, BUN/Creatinine Ratio 15, Glucose Level 227H, Calcium Level 10.5H, Corrected Calcium 10.2H, Magnesium Level 2.1, Total Bilirubin 0.4, Aspartate Amino Transf (AST/SGOT) 14, Alanine Aminotransferase (ALT/SGPT) 14, Alkaline Phosphatase 100, Myoglobin 55.7, Troponin I < 0.028, Total Protein 8.1 , Albumin 4.4, Lipase 45 06/23/18 22:45: Troponin I 0.036H, Total Creatine Kinase 83 06/24/18 05:23: White Blood Count 9.6, Red Blood Count 4.07L, Hemoglobin 12.1L, Hematocrit 37L, Mean Corpuscular Volume 92, Mean Corpuscular Hemoglobin 30, Mean Corpuscular Hemoglobin Concent 32, Red Cell Distribution Width 14.9H, Platelet Count 208, Mean Platelet Volume 9.9, Neutrophils (%) (Auto) 49, Lymphocytes (%) (Auto) 37, Monocytes (%) (Auto) 6, Eosinophils (%) (Auto) 9, Basophils (%) (Auto) 0, Neutrophils # (Auto) 4.7, Lymphocytes # (Auto) 3.5, Monocytes # (Auto) 0.6, Eosinophils # (Auto) 0.9H, Basophils # (Auto) 0.0, Neutrophils % (Manual) 46, Lymphocytes % (Manual) 41, Monocytes % (Manual) 3, Eosinophils % (Manual) 10, Blood Morphology Comment NORMAL 06/24/18 05:28: Sodium Level 140, Potassium Level 4.1, Chloride Level 109H, Carbon Dioxide Level 22, Anion Gap 9, Blood Urea Nitrogen 16, Creatinine 1.10, Estimat Glomerular Filtration Rate > 60, BUN/Creatinine Ratio 15, Glucose Level 148H, Calcium Level 9.7, Triglycerides Level 189H, Cholesterol Level 158, LDL Cholesterol Direct 99, VLDL Cholesterol 38, HDL Cholesterol 32L Laboratory Tests 06/23/18 16:40 06/24/18 05:23 06/24/18 05:28 A/P-Cardiology Assessment/Admission Diagnosis Unstable angina and small, ac NSTEMI CAD with h/o CABG at [facility] in [address] Winkler HTN HL Chronic tobacco use (smokes cigs) Discussion and Recomendations * Treat with DAPT and enoxaparin and beta-julio * Card cath recommended. We reviewed in detail the rationale, procedure, risks, benefits, potential complications and alternatives of card cath with him and is fam. He understands and wishes to proceed. Will schedule for tomorrow. Will proceed earlier, if needed * We advised him to quit smoking immediately and completely Clinical Quality Measures DVT/VTE Risk/Contraindication: Risk Factor Score Per Nursin RFS Level Per Nursing on Admit: 3=High ARCHANA TYLER MD FACP FACC CCDS Jun 24, 2018 14:55
[2018-06-24] MEDS ORDERED: NOREPINEPHRINE 4 MG/NS 250 ML DRIP IV SCH ×2 (15:00)
[2018-06-25] VITALS (15 sets, daily range): BP systolic 133–161; BP diastolic 66–89
[2018-06-25] MEDS: ENOXAPARIN 100 MG/1 ML (LOVENOX) SYR SC SCH (03:50)
[2018-06-25 05:26] LABS: BASOPHILS % (AUTO) 0 % (0-10); EOSINOPHILS # (AUTO) 0.9 10^3/uL (0.0-0.3); EOSINOPHILS % (AUTO) 11 % (0-10); HEMATOCRIT 37 % (40-54); HEMOGLOBIN 11.9 G/DL (13.3-17.7); LYMPHOCYTES # (AUTO) 2.8 X 10^3 (1.0-4.0); LYMPHOCYTES % (AUTO) 36 % (12-44); MEAN CORPUSCULAR HEMOGLOBIN 30 PG (25-34); MEAN CORPUSCULAR HGB CONC 32 G/DL (32-36); MEAN CORPUSCULAR VOLUME 91 FL (80-99); MEAN PLATELET VOLUME 9.9 FL (7.4-10.4); MONOCYTES # (AUTO) 0.5 X 10^3 (0.0-1.0); MONOCYTES % (AUTO) 7 % (0-12); NEUTROPHILS # (AUTO) 3.5 X 10^3 (1.8-7.8); NEUTROPHILS % (AUTO) 45 % (42-75); PLATELET COUNT 217 10^3/uL (130-400); RED CELL DISTRIBUTION WIDTH 14.8 % (10.0-14.5); WHITE BLOOD COUNT 7.6 10^3/uL (4.3-11.0)
[2018-06-25 05:47] LABS: ALANINE AMINOTRANSFERASE 11 U/L (0-55); ALBUMIN 3.6 GM/DL (3.2-4.5); ALKALINE PHOSPHATASE 75 U/L (40-136); BILIRUBIN,TOTAL 0.3 MG/DL (0.1-1.0); BUN/CREATININE RATIO 16; CALCIUM 9.4 MG/DL (8.5-10.1); CARBON DIOXIDE 22 MMOL/L (21-32); CHLORIDE 107 MMOL/L (98-107); CREATININE SERUM 1.14 MG/DL (0.60-1.30); GFR ESTIMATED > 60; GLUCOSE 152 MG/DL (70-105); POTASSIUM 4.3 MMOL/L (3.6-5.0); SODIUM 137 MMOL/L (135-145); TOTAL PROTEIN 6.6 GM/DL (6.4-8.2)
[2018-06-25] MEDS ORDERED: ASPIRIN 81 MG CHEW (CHILDREN'S ASA) PO SCH (09:00)
[2018-06-25] MEDS ORDERED: meTOproloL SUCCINATE 50 MG (TOPROL XL) TAB PO SCH (09:00)
[2018-06-25] MEDS ORDERED: CLOPIDOGREL 75 MG (PLAVIX) TABLET PO SCH (09:00)
[2018-06-25] MEDS: ASPIRIN 81 MG CHEW (CHILDREN'S ASA) PO SCH (09:24)
[2018-06-25] MEDS: meTOproloL SUCCINATE 50 MG (TOPROL XL) TAB PO SCH (09:25)
[2018-06-25] MEDS: CLOPIDOGREL 75 MG (PLAVIX) TABLET PO SCH (09:25)
[2018-06-25] MEDS ORDERED: LIDOCAINE 1% INJ 20 ML 20 ML VIAL ONE (10:09)
[2018-06-25] MEDS ORDERED: HEParin 1000 UNIT/ML (10ML VIAL) FOR BOLUS ONE (10:10)
[2018-06-25] MEDS ORDERED: NS IV 1000 ML 3,000 ML ONE (10:10)
[2018-06-25] MEDS ORDERED: MIDAZOLAM 5 MG/5 ML (VERSED) VIAL ONE (10:20)
[2018-06-25] MEDS ORDERED: fentaNYL INJECTION 100 MCG/2 ML AMP ONE (10:21)
[2018-06-25] MEDS ORDERED: EPTIFIBATIDE BOLUS 20 ML IV ONE (12:08)
[2018-06-25] MEDS ORDERED: MIDAZOLAM 2 MG/2 ML (VERSED) VIAL ONE (12:12)
[2018-06-25] MEDS ORDERED: NITRO DRIP 25000 MCG/D5W 250 ML IV ONE (12:18)
[2018-06-25] MEDS ORDERED: CLOPIDOGREL 300 MG (PLAVIX) TABLET PO ONE (12:30)
[2018-06-25] MEDS ORDERED: ASPIRIN 81 MG CHEW (CHILDREN'S ASA) ONE (12:30)
--- NOTE | 2018-06-25 12:32 | NUR ---
REPORT CALLED TO HAIDER GARCIA IN ICU.
[2018-06-25] MEDS ORDERED: NS IV 1000 ML 1,000 ML IV SCH (13:11)
--- NOTE | 2018-06-25 13:11 | Progress Note-Cardiology ---
Cardiology SOAP Progress Note Subjective: Had had intermittent, mild, short-lived chest discomfort until PCI today No palp or syncope Chronic shortness of breath Objective: I&O/Vital Signs 06/25/18 06/25/18 06/25/18 06/25/18 04:00 04:00 07:00 08:00 Temp 97.6 97.2 Pulse 66 62 77 Resp 16 16 B/P (MAP) 133/66 (88) 141/82 (101) Pulse Ox 92 91 O2 Delivery Room Air Room Air Room Air 06/25/18 06/25/18 08:00 09:00 Pulse Ox 91 O2 Delivery Room Air Room Air 06/25/18 00:00 Intake Total 2350 ml Output Total 925 ml Balance 1425 ml Weight (Pounds): 198 Weight (Ounces): 5.0 Weight (Calculated Kilograms): 89.961427 Constitutional: AAO x 3, well-developed, well-nourished Respiratory: No accessory muscle use; other (fair to good bilat air entry) Cardiovascular: No regular rate-rhythm; S1 and S2, systolic murmur (faint CEDRICK at card base) Gastrointestional: No tender; soft; No guarding, No rebound; audible bowel sounds Extremities: No clubbing, No cyanosis, No significant edema Neurologic/Psychiatric: oriented x 3, grossly intact, power is 5/5 both on sides Skin: No rash on exposed areas, No ulcerations on exposed areas Results/Procedures: Labs Laboratory Tests 06/25/18 05:05: White Blood Count 7.6, Red Blood Count 4.03L, Hemoglobin 11.9L, Hematocrit 37L, Mean Corpuscular Volume 91, Mean Corpuscular Hemoglobin 30, Mean Corpuscular Hemoglobin Concent 32, Red Cell Distribution Width 14.8H, Platelet Count 217, Mean Platelet Volume 9.9, Neutrophils (%) (Auto) 45, Lymphocytes (%) (Auto) 36, Monocytes (%) (Auto) 7, Eosinophils (%) (Auto) 11H, Basophils (%) (Auto) 0, Neutrophils # (Auto) 3.5, Lymphocytes # (Auto) 2.8, Monocytes # (Auto) 0.5, Eosinophils # (Auto) 0.9H, Basophils # (Auto) 0.0, Sodium Level 137, Potassium Level 4.3, Chloride Level 107, Carbon Dioxide Level 22, Anion Gap 8, Blood Urea Nitrogen 18, Creatinine 1.14, Estimat Glomerular Filtration Rate > 60, BUN/ Creatinine Ratio 16, Glucose Level 152H, Calcium Level 9.4, Corrected Calcium 9.7, Total Bilirubin 0.3, Aspartate Amino Transf (AST/SGOT) 12, Alanine Aminotransferase (ALT/SGPT) 11, Alkaline Phosphatase 75, Total Protein 6.6, Albumin 3.6 Laboratory Tests 06/23/18 16:40 06/24/18 05:23 06/24/18 05:28 06/25/18 05:05 A/P: Assessment: Unstable angina and small, ac NSTEMI, treated with PCI to a severe lesion in the SVG to terminal OM CAD with h/o CABG at [facility] in [address] Winkler. Card cath of 06/25/18: 80% distal LMCA (involving ostia of LAD and LCX), 100% ostial OM1, multiple subtotal lesions in RCA, 95-99% prox stenosis of SVG to terminal OM (stented with Sherri 2.5 x 18 on 06/25/18), patent SVG to OM1, patent SVG to D2, patent SVG (with 50-60% midvessel stenosis) to RCA-PDA, LVEDP 10, LVEF 45-50% HTN HL Chronic tobacco use (smokes cigs) Plan: * I reviewed his cath findings and interventions undertaken in detail with him and his and son * Continue DAPT and beta-julio and statin * We advised him to quit smoking immediately and completely ARCHANA TYLER MD FACP [facility] CCDS Jun 25, 2018 13:11
[2018-06-25] MEDS ORDERED: PATIENT MAY USE OWN MEDS, ALL PO SCH (13:15)
--- NOTE | 2018-06-25 13:15 | CARDIAC CATHETERIZATION ---
DATE OF SERVICE: ADDENDUM CARDIAC CATHETERIZATION REPORT AORTIC ROOT ANGIOGRAPHY: Aortic root angiography did not indicate any significant ascending aortic aneurysm or dissection or significant aortic regurgitation. Aortic valve leaflets exhibit good leaflet excursion. There is mild calcification of the ascending aorta. The aortocoronary grafts were identified on this injection, but the fourth one was not. AORTIC ARCH ANGIOGRAPHY: Aortic arch angiography indicates calcification of the aortic knob. The neck arteries, to the extent seen, do not exhibit significant obstructive disease. There is, however, calcification of the proximal portions of the neck arteries. Job ID: [id number] DocumentID: [id number] Dictated Date: 06/25/2018 12:54:24 Coat Baster Date: 06/25/2018 13:14:58 Dictated By: ARCHANA TYLER MD, MA, FACP, FACC,
--- NOTE | 2018-06-25 13:37 | CARDIAC CATHETERIZATION ---
DATE OF SERVICE: 06/23/2018 CARDIAC CATHETERIZATION AND CORONARY INTERVENTION The patient is a 63-year-old man who is known to have coronary artery disease and has had coronary artery bypass surgery at [facility] in [place], [place] in 2011. He presents with a small non-ST elevation myocardial infarction and unstable angina. Cardiac catheterization was carried out after having obtained informed consent for cardiac catheterization and possible ad hoc coronary or graft intervention. DESCRIPTION OF PROCEDURE: He was brought to the cardiac catheterization laboratory in a fasting state. Right groin was prepared and draped in the usual sterile fashion. Lidocaine 1% for local anesthesia. Modified Seldinger technique was used to advance a 5-[place] sheath in the right femoral artery. A 5-[place] JL4 catheter for left coronary angiography. A 5-[place] JR4 catheter for right coronary angiography, 5-[place] pigtail catheter was used for left heart catheterization and left ventricular angiography. We were not able to selectively engage one of his four aortocoronary bypass grafts. Accordingly, pigtail catheter was used to carry out angiography of the aortic root and the ascending aorta. The pigtail catheter was also used to carry out angiography of the aortic arch to make sure that there was no subclavian stenosis proximal to the left internal mammary artery graft to the left anterior descending. We used 5-[place] JR4 catheter for angiography of all the aortocoronary grafts. We used left internal mammary artery catheter to carry out angiography of the left internal mammary artery graft to left anterior descending. PERCUTANEOUS INTERVENTION TO THE AORTOCORONARY GRAFT TO THE TERMINAL OBTUSE MARGINAL BRANCH OF THE LEFT CIRCUMFLEX: Following completion of the diagnostic procedure, we carried out percutaneous intervention to the aortocoronary graft to the distal left circumflex, which was exhibiting 95 to 99% stenosis in its proximal portion. This appeared to be the culprit lesion. We exchanged the sheath over a wire for a 6-[place] sheath. We gave 4000 units of intravenous heparin. We did use a double bolus of Integrilin during the procedure. We used a 6-[place] left coronary artery bypass catheter to engage the graft. We advanced BMW wire across the lesion. We advanced Xience Sherri 2.5 x 18 mm stent across the lesion. This was carefully positioned. The stent was deployed at 20 atmospheres, achieving a final stent lumen size of approximately 2.9 mm. Subsequent angiography revealed 0% residual stenosis with normal antegrade flow. The patient tolerated the procedure well. Angioplasty equipment was removed. Angiography of the right femoral artery had been carried out at the beginning of the procedure. At the end of the procedure, Mynx was used to achieve hemostasis. HEMODYNAMICS: Left ventricular end-diastolic pressure following coronary angiography was 10 mmHg. There is no significant pressure gradient on pullback across the aortic valve. Ascending aortic pressure was 120/54 with a mean of 79 mmHg. LEFT VENTRICULAR CORONARY ANGIOGRAPHY: Left ventricular coronary angiography was carried out at the right anterior oblique projection. There appears to be mild global hypokinesis. Left ventricular ejection fraction is 45-50%. CORONARY ANGIOGRAPHY: Left main coronary artery has 80% distal stenosis. There is coronary calcification involving all coronary vessels. The distal stenosis in the left main coronary artery extending into the ostial segments of the left anterior descending and the left circumflex arteries. The first obtuse marginal branch of the left circumflex artery is occluded at its ostium and is only seen to be an injection of the aortocoronary graft to this vessel. It is not seen with antegrade injection of the [place] left coronary system. The right coronary artery has multiple subtotal occlusions in its proximal and distal portions. AORTOCORONARY GRAFT ANGIOGRAPHY: The more cephalic aortocoronary graft is to the distal obtuse margin of the left circumflex and has 95 to 99% stenosis and this was distended with the Xience Sherri 2.5 x 18 mm stent, deployed at 20 atmospheres. The more caudal graft is an aortocoronary graft to the first obtuse marginal branch of the left circumflex artery. This is patent with distal runoff. The two most caudal grafts are one to the distal right coronary which exhibits 50 to 60% mid to distal vessel stenosis and another graft to the second diagonal branch of the left anterior descending artery, which appears widely patent with good antegrade and retrograde flow. It also fills the distal left anterior descending artery retrogradely. LEFT INTERNAL MAMMARY ARTERY GRAFT ANGIOGRAPHY: Left internal mammary artery graft to distal left anterior descending artery is patent. However, there is a lot proximal branch, which has not been tied and competes with antegrade flow into the left internal mammary artery graft. There does not appear to be any significant lesions of the left internal mammary artery graft. CONCLUSIONS: 1. [place] coronary artery disease consisting of 80% distal left main coronary artery stenosis that extends into the ostial portion of the left anterior descending to left circumflex and multiple subtotal occlusions of the right coronary. The first obtuse marginal branch of the left circumflex artery is occluded at its ostium. 2. A 95 to 99% stenosis of the proximal portion of a saphenous vein graft to the distal posterolateral to which successful stenting was carried out today with Xience Sherri at 2.5 x 18 mm stent. 3. Patent aortocoronary graft to the first obtuse marginal branch. 4. Patent aortocoronary graft, with 50 to 60% mid vessel stenosis, to the posterolateral system of the right coronary. 5. Patent aortocoronary graft to the second diagonal, which also supplies retrograde flow into the left anterior descending. 6. Patent left internal mammary artery graft to the distal left anterior descending. 7. Normal left ventricular end-diastolic pressure. 8. Mild global hypokinesis of left ventricle with left ventricular ejection fraction of 45-50%. DISCUSSION AND RECOMMENDATIONS: He has again been advised to quit smoking immediately and completely. Dual antiplatelet therapy is being continued. Beta julio and statin therapy is being continued. Outpatient followup is advised. He remains hospitalized for overnight observation after today's procedure. Job ID: [id number] DocumentID: [id number] Dictated Date: 06/25/2018 12:49:00 Percher Date: 06/25/2018 13:36:35 Dictated By: ARCHANA TYLER MD, MA, FACP, FACC, MTDD
[2018-06-25] MEDS ORDERED: ATORVASTATIN 40 MG (LIPITOR) TABLET PO SCH (21:00)
[2018-06-26] VITALS (10 sets, daily range): BP systolic 120–141; BP diastolic 57–87
[2018-06-26 03:52] LABS: HEMOGLOBIN 11.5 G/DL (13.3-17.7); MEAN PLATELET VOLUME 9.8 FL (7.4-10.4); RED CELL DISTRIBUTION WIDTH 14.6 % (10.0-14.5); WHITE BLOOD COUNT 10.5 10^3/uL (4.3-11.0)
[2018-06-26 04:05] LABS: BUN/CREATININE RATIO 20; CALCIUM 9.4 MG/DL (8.5-10.1); CARBON DIOXIDE 21 MMOL/L (21-32); CHLORIDE 106 MMOL/L (98-107); CREATININE SERUM 1.13 MG/DL (0.60-1.30); GFR ESTIMATED > 60; GLUCOSE 170 MG/DL (70-105); POTASSIUM 4.2 MMOL/L (3.6-5.0); SODIUM 135 MMOL/L (135-145)
[2018-06-26] MEDS: ASPIRIN 81 MG CHEW (CHILDREN'S ASA) PO SCH (08:44)
[2018-06-26] MEDS: CLOPIDOGREL 75 MG (PLAVIX) TABLET PO SCH (08:44)
[2018-06-26] MEDS: meTOproloL SUCCINATE 50 MG (TOPROL XL) TAB PO SCH (08:45)
[2018-06-26] MEDS ORDERED: ATOR40TA PO (09:17)
[2018-06-26] MEDS ORDERED: METO-370 PO (09:17)
[2018-06-26] MEDS ORDERED: CLOP75TA28 PO (09:17)
--- NOTE | 2018-06-26 09:18 | Discharge Inst-Cardiology ---
Discharge Inst-Cardiac Discharge Medications New Medications: Atorvastatin Calcium (Lipitor) 40 Mg Tablet 40 MG PO HS, #30 TAB 5 Refills Clopidogrel Bisulfate (Clopidogrel) 75 Mg Tablet 75 MG PO DAILY, #30 TAB 5 Refills Metoprolol Succinate (Metoprolol Succinate) 50 Mg Tab.er.24h 50 MG PO DAILY, #30 TAB 5 Refills Continued Medications: Aspirin (Aspirin 81 Mg Chew Tab) 81 Mg Chew 1 PO DAILY [place] 3 Polyunsat Fatty Acids (Fish Oil) 1,000 Mg Cap 1000 MG PO BID Discontinued Medications: Benazepril Hcl (Lotensin) 40 Mg Tablet 1 PO HS Ibuprofen (Motrin) 800 Mg Tablet 1 TAB PO BID PRN Metoprolol Succinate (Toprol Xl 25MG) 25 Mg Tab.sr.24h 1 PO BID New, Converted or Re-Newed RX: RX on Chart Patient Instructions Patient Instructions: Please schedule follow up appointment to see Dr. Khan in 2 weeks Orders-Post D/C & Referrals Pneu Vac Indicated: Yes URMILA MUÑOZ Jun 26, 2018 09:18
--- NOTE | 2018-06-26 10:16 | Discharge Summary-Hospitalist ---
Diagnosis/Chief Complaint Date of Admission Jun 23, 2018 at 18:59 Date of Discharge Discharge Date: Jun 26, 2018 Discharge Diagnosis (1) Presence of stent in coronary artery Status: Acute (2) Elevated troponin Status: Acute (3) HLD (hyperlipidemia) Status: Chronic (4) HTN (hypertension) Status: Chronic (5) Chest pain Status: Acute (6) Tobacco abuse Status: Chronic Discharge Summary Discharge Physical Exam Allergies: Coded Allergies: NKANo Known Allergies (Unverified Allergy, Mild, 07/20/09) Vitals & I&Os Vital Signs Date Time Temp Pulse Resp B/P (MAP) Pulse Ox O2 Delivery O2 Flow Rate FiO2 06/26/18 13:41 68 12 134/87 93 Room Air 06/25/18 13:00 97.4 General Appearance: No Apparent Distress, WD/WN, Chronically ill Respiratory: Chest Non Tender, Lungs Clear, Normal Breath Sounds, No Accessory Muscle Use, No Respiratory Distress Cardiovascular: Regular Rate, Rhythm, No Edema, No Gallop, No JVD, No Murmur, Normal Peripheral Pulses Neurologic/Psychiatric: Alert, Oriented x3, No Motor/Sensory Deficits, Normal Mood/Affect Hospital Course Was the Problem List Reviewed?: Yes Hospital course: Pt had a lengthy hospital course, he was admitted for chest pain and stabilized vital signs and underwent cardiac catheterization with intervention and multiple meds were changed by cardiology all deemed correct and he will have a close follow up with [facility] in addition to Dr. Khan. Labs (last 24 hrs) Laboratory Tests 06/26/18 03:35: White Blood Count 10.5, Red Blood Count 3.89L, Hemoglobin 11.5L, Hematocrit 35L , Mean Corpuscular Volume 91, Mean Corpuscular Hemoglobin 30, Mean Corpuscular Hemoglobin Concent 33, Red Cell Distribution Width 14.6H, Platelet Count 205, Mean Platelet Volume 9.8, Sodium Level 135, Potassium Level 4.2, Chloride Level 106, Carbon Dioxide Level 21, Anion Gap 8, Blood Urea Nitrogen 23H, Creatinine 1.13, Estimat Glomerular Filtration Rate > 60, BUN/Creatinine Ratio 20, Glucose Level 170H, Calcium Level 9.4 Microbiology 06/24/18 MRSA Screen - Final, Complete MRSA not isolated Patient resulted labs reviewed. Pending Labs Discussion & Recommendations Discharge Planning: <30 minutes discharge planning Discharge Home Medications: Active Scripts Active Metoprolol Succinate 50 Mg Tab.er.24h 50 Mg PO DAILY Lipitor (Atorvastatin Calcium) 40 Mg Tablet 40 Mg PO HS Clopidogrel (Clopidogrel Bisulfate) 75 Mg Tablet 75 Mg PO DAILY Reported Fish Oil 1,000 Mg Cap 1,000 Mg PO BID Aspirin 81 Mg Chew Tab (Aspirin) 81 Mg Chew 1 PO DAILY Instructions to patient/family Please see electronic discharge instructions given to patient. Clinical Quality Measures DVT/VTE Risk/Contraindication: Risk Factor Score Per Nursin RFS Level Per Nursing on Admit: 3=High Problem Qualifiers (1) HLD (hyperlipidemia): Hyperlipidemia type: unspecified Qualified Codes: E78.5 - Hyperlipidemia, unspecified (2) HTN (hypertension): Hypertension type: essential hypertension Qualified Codes: I10 - Essential ( primary) hypertension (3) Chest pain: Ischemic chest pain type: unspecified angina pectoris type LESVIA MCNEIL DO Jun 26, 2018 10:16
--- NOTE | 2018-06-26 11:26 | NUR ---
Pastoral care visit, pt asleep.
--- NOTE | 2018-06-26 13:52 | Progress Note-Cardiology ---
Cardiology SOAP Progress Note Subjective: Feels well today No cp or palp or syncope or groin discomfort Objective: I&O/Vital Signs 06/26/18 06/26/18 06/26/18 06/26/18 02:00 03:00 04:00 04:00 Pulse 76 73 72 Resp 15 13 20 B/P (MAP) 126/74 (91) 127/69 (88) 120/62 (81) Pulse Ox 92 91 92 92 O2 Delivery Room Air Room Air Room Air Room Air 06/26/18 06/26/18 06/26/18 06/26/18 05:00 07:00 07:11 08:00 Pulse 67 55 61 76 Resp 21 20 12 B/P (MAP) 121/57 (78) 132/71 (91) 132/71 (91) Pulse Ox 92 94 92 O2 Delivery Room Air Room Air Room Air 06/26/18 06/26/18 06/26/18 06/26/18 08:55 09:00 12:00 12:00 Pulse 65 Resp 19 B/P (MAP) 141/74 (96) Pulse Ox 91 92 94 92 O2 Delivery Room Air Room Air Room Air Room Air 06/26/18 06/26/18 12:34 13:41 Pulse 75 68 Resp 12 B/P (MAP) 134/87 Pulse Ox 93 O2 Delivery Room Air 06/26/18 00:00 Intake Total 0 ml Output Total 700 ml Balance -700 ml Weight (Pounds): 204 Weight (Ounces): 2.0 Weight (Calculated Kilograms): 92.005327 Condition: DP/PT pulses palpable Device Insertion Site: without hematoma Bruising: mild bruising Constitutional: AAO x 3, well-developed, well-nourished Respiratory: No accessory muscle use; other (fair to good bilat air entry) Cardiovascular: No regular rate-rhythm; S1 and S2, systolic murmur (faint CEDRICK at card base) Gastrointestional: No tender; soft; No guarding, No rebound; audible bowel sounds Extremities: No clubbing, No cyanosis, No significant edema Neurologic/Psychiatric: oriented x 3, grossly intact, power is 5/5 both on sides Skin: No rash on exposed areas, No ulcerations on exposed areas Results/Procedures: Labs Laboratory Tests 06/26/18 03:35: White Blood Count 10.5, Red Blood Count 3.89L, Hemoglobin 11.5L, Hematocrit 35L , Mean Corpuscular Volume 91, Mean Corpuscular Hemoglobin 30, Mean Corpuscular Hemoglobin Concent 33, Red Cell Distribution Width 14.6H, Platelet Count 205, Mean Platelet Volume 9.8, Sodium Level 135, Potassium Level 4.2, Chloride Level 106, Carbon Dioxide Level 21, Anion Gap 8, Blood Urea Nitrogen 23H, Creatinine 1.13, Estimat Glomerular Filtration Rate > 60, BUN/Creatinine Ratio 20, Glucose Level 170H, Calcium Level 9.4 Microbiology 06/24/18 MRSA Screen - Final, Complete MRSA not isolated Laboratory Tests 06/25/18 05:05 06/26/18 03:35 A/P: Assessment: Unstable angina and small, ac NSTEMI, treated with PCI to a severe lesion in the SVG to terminal OM CAD with h/o CABG at [facility] in [address] Winkler. Card cath of 06/25/18: 80% distal LMCA (involving ostia of LAD and LCX), 100% ostial OM1, multiple subtotal lesions in RCA, 95-99% prox stenosis of SVG to terminal OM (stented with Sherri 2.5 x 18 on 06/25/18), patent SVG to OM1, patent SVG to D2, patent SVG (with 50-60% midvessel stenosis) to RCA-PDA, LVEDP 10, LVEF 45-50% HTN HL Probable DM II, managed by Dr Wilson Chronic tobacco use (smokes cigs) Plan: * I reviewed his cath findings and interventions undertaken in detail with him * Continue DAPT and beta-julio and statin * We advised him to quit smoking immediately and completely ARCHANA TYLER MD FACP [facility] Jun 26, 2018 13:52
== END 2018-06-26 13:52 | disposition home or self-care (01) ==
LOC: EDUNIT# 16:35 → ER 16:36 → 4TH 18:59 → ICU 06-25 13:12
PROVIDERS: ADMIT Family Medicine; ATTEND Family Medicine
DX: I21.4 Non-ST elevation (NSTEMI) myocardial infarction (principal); I25.10 Atherosclerotic heart disease of native coronary artery without angina pectoris; I25.810 Atherosclerosis of coronary artery bypass graft(s) without angina pectoris; I10 Essential (primary) hypertension; E78.5 Hyperlipidemia, unspecified; F17.210 Nicotine dependence, cigarettes, uncomplicated; K80.20 Calculus of gallbladder without cholecystitis without obstruction; R73.09 Other abnormal glucose; Z79.82 Long term (current) use of aspirin; Z79.899 Other long term (current) drug therapy; Z95.1 Presence of aortocoronary bypass graft
CPT/HCPCS: 36221; 36415; 71045; 71275; 76705; 80048; 80053; 80061; 82550; 83036; 83690; 83735; 83874; 84484; 85007; 85025; 85027; 85379; 85610; 85730; 87081; 93005; 93041; 93459; 93567; 96372; 96374; G0378

== ENCOUNTER 2018-07-01 13:00 | Emergency (ER) | payer MEDICARE ==
[~2018-07-01] VITALS: Ht 180.3 cm; Wt 77.1 kg
[~2018-07-01 13:00] MED LIST changes: +ATOR40TA PO; +CLOP75TA28 PO; +METO-370 PO
--- OUTSIDE RECORDS SUMMARY | 2018-07-01 13:06 | XMS REPORT | Continuity of Care Document ---
Author Organization Unknown Address Unknown Allergies Active Description Code Type Severity Reaction Onset Reported/Identified Relationship to Patient Clinical Status Yes NKANo Known Allergies NKA Miscellaneous Allergy Mild N/A 07/20/2009 Medications There is no data. Problems Date Dx Coded Attending Type Code Diagnosis Diagnosed By 08/28/2008 SALVATORE MOSLEY MD 300.00 AN ANXIETY UNSPEC 08/28/2008 SALVATORE MOSLEY MD 311 MO DEPRESS NOS 08/28/2008 300.00 AN ANXIETY UNSPEC 08/28/2008 311 MO DEPRESS NOS 08/28/2008 300.00 AN ANXIETY UNSPEC 08/28/2008 311 MO DEPRESS NOS 08/28/2008 ELE TORRES [...] 09/24/2008 296.32 MO DEPRESSIVE RECURRENT MODERATE 09/24/2008 ELE TORRES SAMANTA K 296.32 MO DEPRESSIVE RECURRENT MODERATE 09/24/2008 ZENOBIA MARLOW DOA K 296.32 MO DEPRESSIVE RECURRENT MODERATE 09/24/2008 ELE TORRES SAMANTA K 296.32 MO DEPRESSIVE RECURRENT MODERATE 09/24/2008 MARLOW DO SAMANTA K 296.32 MO DEPRESSIVE RECURRENT MODERATE 10/31/2008 [...] K 296.30 MO DEPRESSIVE RECURRENT UNSPECIFIED 11/14/2008 ELE TORRES SAMANTA K 296.30 MO DEPRESSIVE RECURRENT UNSPECIFIED 11/14/2008 MARLOW DO SAMANTA K 296.30 MO DEPRESSIVE RECURRENT UNSPECIFIED 11/14/2008 ELE TORRES SAMANTA K 296.30 MO DEPRESSIVE RECURRENT UNSPECIFIED 12/18/2008 SALVATORE MOSLEY MD 303.90 SA ALCOHOL DEPENDENCE 12/18/2008 303.90 SA [...] DO, SAMANTA K 305.1 TOBACCO ABUSE 11/11/2010 SALVATORE MOSLEY MD 601.9 PROSTATITIS UNSPECIFIED 11/11/2010 SALVATORE MOSLEY MD 790.29 HYPERGLYCEMIA 11/11/2010 601.9 PROSTATITIS UNSPECIFIED 11/11/2010 [...] MARLOW DO, SAMANTA K 790.29 HYPERGLYCEMIA 12/04/2010 SALVATORE MOSLEY MD 466.0 BRONCHITIS, ACUTE 12/04/2010 SALVATORE MOSLEY MD [...] CLASSIFIED 01/25/2011 599.0 Urinary Tract Infection 01/25/2011 MARLOW DO, [...] CORONARY ATHEROSCLEROSIS OF UNSPECIFIED TYPE OF VESSEL [place] OR GRAFT 02/25/2011 272.4 OTHER AND UNSPECIFIED HYPERLIPIDEMIA 02/25/2011 414.00 CORONARY ATHEROSCLEROSIS OF UNSPECIFIED TYPE OF VESSEL [place] OR GRAFT 02/25/2011 272.4 OTHER AND UNSPECIFIED HYPERLIPIDEMIA 02/25/2011 414.00 CORONARY ATHEROSCLEROSIS OF UNSPECIFIED TYPE OF VESSEL [place] OR GRAFT 02/25/2011 MARLOW DO, SAMANTA K 272.4 OTHER AND UNSPECIFIED HYPERLIPIDEMIA 02/25/2011 MARLOW DO, SAMANTA K 414.00 CORONARY ATHEROSCLEROSIS OF UNSPECIFIED TYPE OF VESSEL [place] OR GRAFT 02/25/2011 MARLOW DO, SAMANTA K 272.4 OTHER AND UNSPECIFIED HYPERLIPIDEMIA 02/25/2011 MARLOW DO, SAMANTA K 414.00 CORONARY ATHEROSCLEROSIS OF UNSPECIFIED TYPE OF VESSEL [place] OR GRAFT 02/25/2011 MARLOW DO, SAMANTA K 272.4 OTHER AND UNSPECIFIED HYPERLIPIDEMIA 02/25/2011 MARLOW DO, SAMANTA K 414.00 CORONARY ATHEROSCLEROSIS OF UNSPECIFIED TYPE OF VESSEL [place] OR GRAFT 02/25/2011 MARLOW DO, SAMANTA K 272.4 OTHER AND UNSPECIFIED HYPERLIPIDEMIA 02/25/2011 MARLOW DO, SAMANTA K 414.00 CORONARY ATHEROSCLEROSIS OF UNSPECIFIED TYPE OF VESSEL [place] OR GRAFT 04/27/2011 DIMITRI ABBASI, SALVATORE 789.00 Abdominal Pain Unspecified Site 04/27/2011 789.00 Abdominal Pain Unspecified Site 04/27/2011 789.00 Abdominal Pain Unspecified Site 04/27/2011 MARLOW DO SAMANTA K 789.00 Abdominal Pain Unspecified Site 04/27/2011 MARLOW DOZENOBIAA K 789.00 Abdominal Pain Unspecified Site 04/27/2011 MARLOW DO, SAMANTA K 789.00 Abdominal Pain Unspecified Site 04/27/2011 MARLOW DO, SAMANTA K 789.00 Abdominal Pain Unspecified Site 05/05/2011 SALVATORE MOSLEY MD 58Anderson Renal Failure Unspecified 05/05/2011 586 Renal Failure Unspecified 05/05/2011 586 Renal Failure Unspecified 05/05/2011 MARLOW DO SAMANTA K 586 Renal Failure Unspecified 05/05/2011 MARLOW DO, SAMANTA K 586 Renal Failure Unspecified 05/05/2011 MARLOW DO, SAMANTA K 586 Renal Failure Unspecified 05/05/2011 MARLOW DO, SAMANTA K 586 Renal Failure Unspecified 10/19/2011 SALVATORE MOSLEY MD 214.0 LIPOMA OF SKIN AND SUBCUTANEOUS TISSUE OF FACE 10/19/2011 214.0 LIPOMA OF SKIN AND SUBCUTANEOUS TISSUE OF FACE 10/19/2011 214.0 LIPOMA OF SKIN AND SUBCUTANEOUS TISSUE OF FACE 10/19/2011 MARLOW DO SAMANTA K 214.0 LIPOMA OF SKIN AND SUBCUTANEOUS TISSUE OF FACE 10/19/2011 MARLOW DO, SAMANTA K 214.0 LIPOMA OF SKIN AND SUBCUTANEOUS TISSUE OF FACE 10/19/2011 MARLOW DO, SAMANTA K 214.0 LIPOMA OF SKIN AND SUBCUTANEOUS TISSUE OF FACE 10/19/2011 MARLOW DO, SAMANTA K 214.0 LIPOMA OF SKIN AND SUBCUTANEOUS TISSUE OF FACE 09/10/2013 MARLOW DO SAMANTA K 491.21 OBSTRUCTIVE CHRONIC BRONCHITIS WITH (ACUTE) EXACERBATION 09/10/2013 ELE TORRES SAMANTA K 491.21 OBSTRUCTIVE CHRONIC BRONCHITIS WITH (ACUTE) EXACERBATION 09/10/2013 MARLOW DO, SAMANTA K 491.21 OBSTRUCTIVE CHRONIC BRONCHITIS WITH (ACUTE) EXACERBATION 01/01/2014 MARLOW , SAMANTA K 553.20 UNSPECIFIED VENTRAL HERNIA WITHOUT OBSTRUCTION OR GANGRENE 01/01/2014 ELE TORRES SAMANTA K 601.1 CHRONIC PROSTATITIS 01/01/2014 ELE TORRES SAMANTA K 788.1 DYSURIA 06/26/2018 RAMIRO TRUONG MD, Ot E78.5 HYPERLIPIDEMIA, UNSPECIFIED 06/26/2018 RAMIRO TRUONG MD, Ot F17.210 NICOTINE DEPENDENCE, CIGARETTES, UNCOMPL 06/26/2018 GAULT MD, RAMIRO R Ot I10 ESSENTIAL (PRIMARY) HYPERTENSION 06/26/2018 RAMIRO TRUONG MD Ot I21.4 NON-ST ELEVATION (NSTEMI) MYOCARDIAL INF 06/26/2018 RAMIRO TRUONG MD Ot I25.10 ATHSCL HEART DISEASE OF [place] CORONARY 06/26/2018 RAMIRO TRUONG MD Ot I25.810 ATHEROSCLEROSIS OF CABG W/O ANGINA PECTO 06/26/2018 RAMIRO TRUONG MD Ot K80.20 CALCULUS OF GALLBLADDER W/O CHOLECYSTITI 06/26/2018 RAMIRO TRUONG MD Ot R73.09 OTHER ABNORMAL GLUCOSE 06/26/2018 RAMIRO TRUONG MD Ot Z79.82 [facility] (CURRENT) USE OF ASPIRIN 06/26/2018 RAMIRO TRUONG MD Ot Z79.899 OTHER [facility] (CURRENT) DRUG THERAPY 06/26/2018 RAMIRO TRUONG MD Ot Z95.1 PRESENCE OF AORTOCORONARY BYPASS GRAFT 06/26/2018 RAMIRO TRUONG MD Ot E78.5 HYPERLIPIDEMIA, UNSPECIFIED 06/26/2018 RAMIRO TRUONG MD Ot F17.210 NICOTINE DEPENDENCE, CIGARETTES, UNCOMPL 06/26/2018 RAMIRO TRUONG MD Ot I10 ESSENTIAL (PRIMARY) HYPERTENSION 06/26/2018 RAMIRO TRUONG MD Ot I21.4 NON-ST ELEVATION (NSTEMI) MYOCARDIAL INF 06/26/2018 RAMIRO TRUONG MD Ot I25.10 ATHSCL HEART DISEASE OF [place] CORONARY 06/26/2018 RAMIRO TRUONG MD Ot I25.810 ATHEROSCLEROSIS OF CABG W/O ANGINA PECTO 06/26/2018 RAMIRO TRUONG MD Ot K80.20 CALCULUS OF GALLBLADDER W/O CHOLECYSTITI 06/26/2018 RAMIRO TRUONG MD Ot R73.09 OTHER ABNORMAL GLUCOSE 06/26/2018 RAMIRO TRUONG MD Ot Z79.82 SHOT HOLE DRILLER (CURRENT) USE OF ASPIRIN 06/26/2018 RAMIRO TRUONG MD Ot Z79.899 OTHER [facility] (CURRENT) DRUG THERAPY 06/26/2018 RAMIRO TRUONG MD Ot Z95.1 PRESENCE OF AORTOCORONARY BYPASS GRAFT Procedures Code [place] [address] ROUTINE VENIPUNCTURE 08/21/2012 97331 CMP 08/21/2012 25400 CBC 08/21/2012 61354 ROUTINE VENIPUNCTURE 08/24/2012 89323 LIPID PANEL 08/24/[address] CHEST W/O DYE 09/10/2013 79556 ROUTINE VENIPUNCTURE 09/26/2013 7033194 GFR CALC (RESULT ONLY) 09/26/2013 99135 CMP 09/26/2013 89937 LIPID PANEL 09/26/2013 04070 CULTURE URINE 01/01/2014 72230 UA W/ CULTURE IF INDICATED 01/01/2014 Results [...] Prostate Specific Ag, Serum 1.0 ng/mL 0.0-4.0 Complete blood count (CBC) with automated white blood cell (WBC) differential - 06/23/18 16:40 Blood leukocytes automated count (number/volume) 10.4 10*3/uL 4.3-11.0 Blood erythrocytes automated count (number/volume) 4.54 10*6/uL 4.35-5.85 Venous blood hemoglobin measurement (mass/volume) 13.8 g/dL 13.3-17.7 Blood hematocrit (volume fraction) 41 % 40-54 Automated erythrocyte mean corpuscular volume 91 [foz_us] 80-99 Automated erythrocyte mean corpuscular hemoglobin (mass per erythrocyte) 30 pg 25-34 Automated erythrocyte mean corpuscular hemoglobin concentration measurement ( mass/volume) 33 g/dL 32-36 Automated erythrocyte distribution width ratio 14.9 % 10.0-14.5 Automated blood platelet count (count/volume) 250 10*3/uL 130-400 Automated blood platelet mean volume measurement 9.9 [foz_us] 7.4-10.4 Automated blood neutrophils/100 leukocytes 42 % 42-75 Automated blood lymphocytes/100 leukocytes 41 % 12-44 Blood monocytes/100 leukocytes 6 % 0-12 Automated blood eosinophils/100 leukocytes 11 % 0-10 Automated blood basophils/100 leukocytes 0 % 0-10 Blood neutrophils automated count (number/volume) 4.4 10*3 1.8-7.8 Blood lymphocytes automated count (number/volume) 4.3 10*3 1.0-4.0 Blood monocytes automated count (number/volume) 0.7 10*3 0.0-1.0 Automated eosinophil count 1.1 10*3/uL 0.0-0.3 Automated blood basophil count (count/volume) 0.0 10*3/uL 0.0-0.1 PT panel in platelet poor plasma by coagulation assay - 06/23/18 16:40 Prothrombin time (PT) in platelet poor plasma by coagulation assay 12.1 s 12.2-14.7 INR in platelet poor plasma or blood by coagulation assay 0.9 0.8-1.4 Activated partial thromboplastin time (aPTT) in platelet poor plasma bycoagulation assay - 06/23/18 16:40 Activated partial thromboplastin time (aPTT) in platelet poor plasma bycoagulation assay 30 s 24-35 Comprehensive metabolic panel - 06/23/18 16:40 Serum or plasma sodium measurement (moles/volume) 139 mmol/L 135-145 Serum or plasma potassium measurement (moles/volume) 4.3 mmol/L 3.6-5.0 Serum or plasma chloride measurement (moles/volume) 107 mmol/L 98-107 Carbon dioxide 24 mmol/L 21-32 Serum or plasma anion gap determination (moles/volume) 8 mmol/L 5-14 Serum or plasma urea nitrogen measurement (mass/volume) 20 mg/dL 7-18 Serum or plasma creatinine measurement (mass/volume) 1.37 mg/dL 0.60-1.30 Serum or plasma urea nitrogen/creatinine mass ratio 15 NRG Serum or plasma creatinine measurement with calculation of estimated glomerular filtration rate 52 NRG Serum or plasma glucose measurement (mass/volume) 227 mg/dL 70-105 Serum or plasma calcium measurement (mass/volume) 10.5 mg/dL 8.5-10.1 Serum or plasma total bilirubin measurement (mass/volume) 0.4 mg/dL 0.1-1.0 Serum or plasma alkaline phosphatase measurement (enzymatic activity/volume) 100 U/L 40-136 Serum or plasma aspartate aminotransferase measurement (enzymatic activity/ volume) 14 U/L 5-34 Serum or plasma alanine aminotransferase measurement (enzymatic activity/volume ) 14 U/L 0-55 Serum or plasma protein measurement (mass/volume) 8.1 g/dL 6.4-8.2 Serum or plasma albumin measurement (mass/volume) 4.4 g/dL 3.2-4.5 CALCIUM CORRECTED 10.2 mg/dL 8.5-10.1 Magnesium - 06/23/18 16:40 Magnesium 2.1 mg/dL 1.8-2.4 Serum or plasma troponin i.cardiac measurement (mass/volume) - 06/23/18 16:40 Serum or plasma troponin i.cardiac measurement (mass/volume) < ng/ mL <0.028 Myoglobin, serum - 06/23/18 16:40 Myoglobin, serum 55.7 ng/mL 10.0-92.0 Lipase - 06/23/18 16:40 Lipase 45 U/L 8-78 Fibrin D-dimer FEU measurement in platelet poor plasma (mass/volume) - 16:40 Fibrin D-dimer FEU measurement in platelet poor plasma (mass/volume) 1.36 ug/mL 0.00-0.49 Serum or plasma creatine kinase measurement (enzymatic activity/volume) - 06/23 22:45 Serum or plasma creatine kinase measurement (enzymatic activity/volume) 83 U/L 30-200 Serum or plasma troponin i.cardiac measurement (mass/volume) - 06/23/18 22:45 Serum or plasma troponin i.cardiac measurement (mass/volume) 0.036 ng/mL <0.028 Blood CBC with ordered manual differential panel - 06/24/18 05:23 Blood leukocytes automated count (number/volume) 9.6 10*3/uL 4.3-11.0 Blood erythrocytes automated count (number/volume) 4.07 10*6/uL 4.35-5.85 Venous blood hemoglobin measurement (mass/volume) 12.1 g/dL 13.3-17.7 Blood hematocrit (volume fraction) 37 % 40-54 Automated erythrocyte mean corpuscular volume 92 [foz_us] 80-99 Automated erythrocyte mean corpuscular hemoglobin (mass per erythrocyte) 30 pg 25-34 Automated erythrocyte mean corpuscular hemoglobin concentration measurement ( mass/volume) 32 g/dL 32-36 Automated erythrocyte distribution width ratio 14.9 % 10.0-14.5 Automated blood platelet count (count/volume) 208 10*3/uL 130-400 Automated blood platelet mean volume measurement 9.9 [foz_us] 7.4-10.4 Automated blood neutrophils/100 leukocytes 49 % 42-75 Automated blood lymphocytes/100 leukocytes 37 % 12-44 Blood monocytes/100 leukocytes 3 % NRG Automated blood eosinophils/100 leukocytes 9 % 0-10 Automated blood basophils/100 leukocytes 0 % 0-10 Blood neutrophils automated count (number/volume) 4.7 10*3 1.8-7.8 Blood lymphocytes automated count (number/volume) 3.5 10*3 1.0-4.0 Blood monocytes automated count (number/volume) 0.6 10*3 0.0-1.0 Automated eosinophil count 0.9 10*3/uL 0.0-0.3 Automated blood basophil count (count/volume) 0.0 10*3/uL 0.0-0.1 Manual blood segmented neutrophils/100 leukocytes 46 % NRG Manual blood lymphocytes/100 leukocytes 41 % NR Manual eosinophils/100 leukocytes in nose 10 % NR Blood erythrocyte morphology finding identification [facility] Whole blood basic metabolic panel - 06/24/18 05:28 Serum or plasma sodium measurement (moles/volume) 140 mmol/L 135-145 Serum or plasma potassium measurement (moles/volume) 4.1 mmol/L 3.6-5.0 Serum or plasma chloride measurement (moles/volume) 109 mmol/L 98-107 Carbon dioxide 22 mmol/L 21-32 Serum or plasma anion gap determination (moles/volume) 9 mmol/L 5-14 Serum or plasma urea nitrogen measurement (mass/volume) 16 mg/dL 7-18 Serum or plasma creatinine measurement (mass/volume) 1.10 mg/dL 0.60-1.30 Serum or plasma urea nitrogen/creatinine mass ratio 15 NRG Serum or plasma creatinine measurement with calculation of estimated glomerular filtration rate > NRG Serum or plasma glucose measurement (mass/volume) 148 mg/dL 70-105 Serum or plasma calcium measurement (mass/volume) 9.7 mg/dL 8.5-10.1 Lipid 1996 panel - 06/24/18 05:28 Serum or plasma triglyceride measurement (mass/volume) 189 mg/dL <150 Serum or plasma cholesterol measurement (mass/volume) 158 mg/dL < 200 Serum or plasma cholesterol in HDL measurement (mass/volume) 32 mg/ dL 40-60 Cholesterol in LDL [mass/volume] in serum or plasma by direct assay 99 mg/dL 1-129 Serum or plasma cholesterol in VLDL measurement (mass/volume) 38 mg/ dL 5-40 Methicillin resistant Staphylococcus aureus (MRSA) screening culture - 17:50 Methicillin resistant Staphylococcus aureus (MRSA) screening culture NEG NRG Complete blood count (CBC) with automated white blood cell (WBC) differential - 06/25/18 05:05 Blood leukocytes automated count (number/volume) 7.6 10*3/uL 4.3-11.0 Blood erythrocytes automated count (number/volume) 4.03 10*6/uL 4.35-5.85 Venous blood hemoglobin measurement (mass/volume) 11.9 g/dL 13.3-17.7 Blood hematocrit (volume fraction) 37 % 40-54 Automated erythrocyte mean corpuscular volume 91 [foz_us] 80-99 Automated erythrocyte mean corpuscular hemoglobin (mass per erythrocyte) 30 pg 25-34 Automated erythrocyte mean corpuscular hemoglobin concentration measurement ( mass/volume) 32 g/dL 32-36 Automated erythrocyte distribution width ratio 14.8 % 10.0-14.5 Automated blood platelet count (count/volume) 217 10*3/uL 130-400 Automated blood platelet mean volume measurement 9.9 [foz_us] 7.4-10.4 Automated blood neutrophils/100 leukocytes 45 % 42-75 Automated blood lymphocytes/100 leukocytes 36 % 12-44 Blood monocytes/100 leukocytes 7 % 0-12 Automated blood eosinophils/100 leukocytes 11 % 0-10 Automated blood basophils/100 leukocytes 0 % 0-10 Blood neutrophils automated count (number/volume) 3.5 10*3 1.8-7.8 Blood lymphocytes automated count (number/volume) 2.8 10*3 1.0-4.0 Blood monocytes automated count (number/volume) 0.5 10*3 0.0-1.0 Automated eosinophil count 0.9 10*3/uL 0.0-0.3 Automated blood basophil count (count/volume) 0.0 10*3/uL 0.0-0.1 Comprehensive metabolic panel - 06/25/18 05:05 Serum or plasma sodium measurement (moles/volume) 137 mmol/L 135-145 Serum or plasma potassium measurement (moles/volume) 4.3 mmol/L 3.6-5.0 Serum or plasma chloride measurement (moles/volume) 107 mmol/L 98-107 Carbon dioxide 22 mmol/L 21-32 Serum or plasma anion gap determination (moles/volume) 8 mmol/L 5-14 Serum or plasma urea nitrogen measurement (mass/volume) 18 mg/dL 7-18 Serum or plasma creatinine measurement (mass/volume) 1.14 mg/dL 0.60-1.30 Serum or plasma urea nitrogen/creatinine mass ratio 16 NRG Serum or plasma creatinine measurement with calculation of estimated glomerular filtration rate > NRG Serum or plasma glucose measurement (mass/volume) 152 mg/dL 70-105 Serum or plasma calcium measurement (mass/volume) 9.4 mg/dL 8.5-10.1 Serum or plasma total bilirubin measurement (mass/volume) 0.3 mg/dL 0.1-1.0 Serum or plasma alkaline phosphatase measurement (enzymatic activity/volume) 75 U/L 40-136 Serum or plasma aspartate aminotransferase measurement (enzymatic activity/ volume) 12 U/L 5-34 Serum or plasma alanine aminotransferase measurement (enzymatic activity/volume ) 11 U/L 0-55 Serum or plasma protein measurement (mass/volume) 6.6 g/dL 6.4-8.2 Serum or plasma albumin measurement (mass/volume) 3.6 g/dL 3.2-4.5 CALCIUM CORRECTED 9.7 mg/dL 8.5-10.1 Hemoglobin A1c - 06/25/18 05:05 Blood hemoglobin A1C measurement (mass/volume) 8.8 % 4.0- 5.6 MEAN BLOOD GLUCOSE 206 % <=126 Whole blood basic metabolic panel - 06/26/18 03:35 Serum or plasma sodium measurement (moles/volume) 135 mmol/L 135-145 Serum or plasma potassium measurement (moles/volume) 4.2 mmol/L 3.6-5.0 Serum or plasma chloride measurement (moles/volume) 106 mmol/L 98-107 Carbon dioxide 21 mmol/L 21-32 Serum or plasma anion gap determination (moles/volume) 8 mmol/L 5-14 Serum or plasma urea nitrogen measurement (mass/volume) 23 mg/dL 7-18 Serum or plasma creatinine measurement (mass/volume) 1.13 mg/dL 0.60-1.30 Serum or plasma urea nitrogen/creatinine mass ratio 20 NRG Serum or plasma creatinine measurement with calculation of estimated glomerular filtration rate > NRG Serum or plasma glucose measurement (mass/volume) 170 mg/dL 70-105 Serum or plasma calcium measurement (mass/volume) 9.4 mg/dL 8.5-10.1 Automated blood complete blood count (hemogram) panel - 06/26/18 03:35 Blood leukocytes automated count (number/volume) 10.5 10*3/uL 4.3-11.0 Blood erythrocytes automated count (number/volume) 3.89 10*6/uL 4.35-5.85 Venous blood hemoglobin measurement (mass/volume) 11.5 g/dL 13.3-17.7 Blood hematocrit (volume fraction) 35 % 40-54 Automated erythrocyte mean corpuscular volume 91 [foz_us] 80-99 Automated erythrocyte mean corpuscular hemoglobin (mass per erythrocyte) 30 pg 25-34 Automated erythrocyte mean corpuscular hemoglobin concentration measurement ( mass/volume) 33 g/dL 32-36 Automated erythrocyte distribution width ratio 14.6 % 10.0-14.5 Automated blood platelet count (count/volume) 205 10*3/uL 130-400 Automated blood platelet mean volume measurement 9.8 [foz_us] 7.4-10.4 Encounters ACCT No. Visit Date/Time Discharge Status Pt. Type Provider Facility Loc./Unit Complaint [id number] 01/01/2014 09:42:00 01/01/2014 23:59:59 CLS Outpatient SAMANTA MARLOW DO [id number] 09/26/2013 08:02:00 09/26/2013 23:59:59 CLS Outpatient SAMANTA MARLOW DO [id number] 09/10/2013 10:44:00 09/10/2013 23:59:59 CLS Outpatient SAMANTA MARLOW DO [id number] 08/21/2012 09:29:00 08/21/2012 23:59:59 CLS Outpatient SAMANTA MARLOW DO [id number] 10/19/2011 10:32:00 10/19/2011 23:59:59 CLS Outpatient DIMITRI ABBASI, SALVATORE [id number] 08/24/2012 07:57:00 Document Registration [id number] 08/21/2012 09:29:00 Document Registration [id number] 11/24/2016 08:38:00 Document Registration [id number] 06/23/2018 18:59:00 06/26/2018 13:52:00 DIS Inpatient DIONNE ABBASI, RAMIRO Erickson [facility] ICU CHEST PAIN,CAD,HTN [id number] 09/17/2013 15:09:00 09/17/2013 23:59:59 CLS Outpatient [id number] 07/01/2018 13:02:00 ACT Emergency EMEKA ABBASI, ALFREDO Orr [facility] ER POST HEART CATH 06/25, RASH
[2018-07-01] MEDS ORDERED: diphenhydrAMINE 50 MG/ML INJ (BENADRYL) IM ONE (13:30)
[2018-07-01] MEDS ORDERED: TICA90TA PO (13:36)
--- NOTE | 2018-07-01 13:38 | ED Integumentary General ---
General Chief Complaint: Allergic Reaction Stated Complaint: POST HEART CATH 06/25, RASH Nursing Triage Note: THE PT JUST RECENTLY STARTED SOME NEW MEDICATION. THE PT HAS A MILD RASH LOCATED TO HIS FRONT AND HIS BACK TORSO. THE PT IS NOT SHOWING ANY ATHER SX OF REACTON. Source: patient Exam Limitations: no limitations History of Present Illness Date Seen by Provider: Jul 01, 2018 Time Seen by Provider: 14:20 Initial Comments 63-year-old male who presents to emergency room with complaints of a rash all over his body sparing his face. He had a heart catheter last week and was started on atorvastatin and Plavix and broke out in a rash all over his body on the second day of the medication. He denies shortness of breath, throat or tongue swelling. He reports itching. Timing/Duration: other (2 days ago) Associated Symptoms: rash Allergies and Home Medications Allergies Coded Allergies: NKANo Known Allergies (Unverified Allergy, Mild, 07/20/09) Home Medications Aspirin 81 Mg Chew, 1 PO DAILY, (Reported) Atorvastatin Calcium 40 Mg Tablet, 40 MG PO HS Prescribed by: URMILA MUÑOZ on 06/26/18916 Clopidogrel Bisulfate 75 Mg Tablet, 75 MG PO DAILY Prescribed by: URMILA MUÑOZ on 06/26/18916 Metoprolol Succinate 50 Mg Tab.er.24h, 50 MG PO DAILY Prescribed by: URMILA MUÑOZ on 06/26/18916 [place] 3 Polyunsat Fatty Acids 1,000 Mg Cap, 1,000 MG PO BID, (Reported) Ticagrelor 90 Mg Tablet, 90 MG PO BID Prescribed by: PILY BARBER on 07/01/18 1336 Patient Home Medication List Home Medication List Reviewed: Yes Review of Systems Review of Systems Constitutional: see HPI; No chills, No fever Skin: see HPI, rash All Other Systems Reviewed Negative Unless Noted: Yes Past Viiswpb-Uxwkaj-Efplqa Hx Past Med/Social Hx: Reviewed Nursing Past Med/Soc Hx Patient Social History Type Used: Cigarettes 2nd Hand Smoke Exposure: Yes Recent Foreign Travel: No Contact w/Someone Who Travel: No Recent Infectious Disease Expo: No Recent Hopitalizations: No Physical Abuse: No Sexual Abuse: No Mistreated: No Fear: No Immunizations Up To Date Date of Influenza Vaccine: Mar 04, 2011 Seasonal Allergies Seasonal Allergies: No Past Medical History Surgeries: Yes CABG Respiratory: Yes Asthma, COPD Currently Using CPAP: No Currently Using BIPAP: No Cardiac: Yes Coronary Artery Disease, Heart Attack, High Cholesterol, Hypertension, Palpitations Neurological: No Genitourinary: Yes Prostate Problems, Bladder Infection Gastrointestinal: No Musculoskeletal: Yes Arthritis Endocrine: No HEENT: No Cancer: No Psychosocial: No Integumentary: No Blood Disorders: No Family Medical History Reviewed Nursing Family Hx CAD Under 55 Years Old, Hypertension Physical Exam Vital Signs Vital Signs - First Documented 07/01/18 13:17 Temp 97.7 Pulse 80 Resp 18 B/P (MAP) 150/73 (98) Pulse Ox 100 Capillary Refill : Less Than 3 Seconds General Appearance: WD/WN, no apparent distress Cardiovascular: normal peripheral pulses, regular rate, rhythm, no edema, no gallop, no JVD, no murmur Respiratory: chest non-tender, lungs clear, normal breath sounds, no respiratory distress, no accessory muscle use Extremities: normal capillary refill Neurologic/Psychiatric: alert, normal mood/affect, oriented x 3 Skin: normal color, warm/dry Skin Problem Location: other (generalized) Skin Problem Character: rash Progress/Results/Core Measures Results/Orders My Orders Orders - BERNOTPILY Diphenhydramine Injection (Benadryl Inje (07/01/18 13:30) Medications Given in ED Vital Signs/I&O 07/01/18 07/01/18 13:17 14:13 Temp 97.7 97.7 Pulse 80 80 Resp 18 18 B/P (MAP) 150/73 (98) 150/70 (96) Pulse Ox 100 100 Blood Pressure Mean: 98 Progress Progress Note : Time: 13:33 Progress Note I have discussed the case with Dr. Glynn and he recommends switching the patient to Brilinta and stopping the atorvastatin and Plavix. The patient agrees with plan of care, plans for discharge, return precautions were given. Departure Impression Primary Impression: Allergic drug rash Disposition: HOME, SELF-CARE Condition: Stable/Unchanged Departure-Patient Inst. Decision time for Depature: 13:35 Referrals: [facility] (PCP) Primary Care Physician KISHA PERDOMO APRN (Family) Primary Care Physician Patient Instructions: Drug Allergy Add. Discharge Instructions: Stop taking the Plavix and atorvastatin. 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 Call Dr. Glynn's office first thing Tuesday morning for an appointment time for recheck. You may use Benadryl as directed by the bottle for itching. Return back to the emergency room for worsening symptoms or concerns as needed. All discharge instructions reviewed with patient and/or family. Voiced understanding. Scripts Ticagrelor (Brilinta) 90 Mg Tablet 90 MG PO BID for 30 Days, #60 TAB Prov: PILY BARBER 07/01/18 PILY BARBER Jul 01, 2018 13:37
[2018-07-01 14:13] VITALS: BP 150/70
== END 2018-07-01 14:13 | disposition home or self-care (01) ==
LOC: EDUNIT# 13:00 → ER 13:02
DX: R21 Rash and other nonspecific skin eruption (principal); J44.9 Chronic obstructive pulmonary disease, unspecified; I25.10 Atherosclerotic heart disease of native coronary artery without angina pectoris; I25.2 Old myocardial infarction; E78.00 Pure hypercholesterolemia, unspecified; I10 Essential (primary) hypertension; Z82.49 Family history of ischemic heart disease and other diseases of the circulatory system; Z87.448 Personal history of other diseases of urinary system; Z79.02 Long term (current) use of antithrombotics/antiplatelets; Z95.9 Presence of cardiac and vascular implant and graft, unspecified; Z79.82 Long term (current) use of aspirin; Z77.22 Contact with and (suspected) exposure to environmental tobacco smoke (acute) (chronic); Z95.1 Presence of aortocoronary bypass graft
CPT/HCPCS: 99284

== ENCOUNTER 2018-07-03 21:46 | Inpatient (IN) | payer MEDICARE, OTHER ==
[~2018-07-03] VITALS: Ht 182.9 cm; Wt 89.4 kg
[~2018-07-03 21:46] MED LIST changes: +TICA90TA PO
[2018-07-03] MEDS ORDERED: ASPIRIN 81 MG CHEW (CHILDREN'S ASA) PO ONE (22:00)
[2018-07-03] MEDS ORDERED: NITROGLYCERIN 0.4 MG SL TABS BTL 25'S SL PRN (22:00)
[2018-07-03 22:03] LABS: BASOPHILS % (AUTO) 0 % (0-10); EOSINOPHILS # (AUTO) 1.1 10^3/uL (0.0-0.3); EOSINOPHILS % (AUTO) 7 % (0-10); HEMATOCRIT 21 % (40-54); LYMPHOCYTES # (AUTO) 3.8 X 10^3 (1.0-4.0); LYMPHOCYTES % (AUTO) 25 % (12-44); MEAN CORPUSCULAR HGB CONC 32 G/DL (32-36); MEAN CORPUSCULAR VOLUME 95 FL (80-99); MEAN PLATELET VOLUME 9.6 FL (7.4-10.4); MONOCYTES # (AUTO) 1.1 X 10^3 (0.0-1.0); MONOCYTES % (AUTO) 7 % (0-12); NEUTROPHILS # (AUTO) 9.5 X 10^3 (1.8-7.8); NEUTROPHILS % (AUTO) 62 % (42-75); PLATELET COUNT 287 10^3/uL (130-400); RED CELL DISTRIBUTION WIDTH 15.1 % (10.0-14.5); WHITE BLOOD COUNT 15.4 10^3/uL (4.3-11.0)
[2018-07-03 22:05] LABS: HEMOGLOBIN 6.7 G/DL (13.3-17.7); MEAN CORPUSCULAR HEMOGLOBIN 30 PG (25-34)
--- NOTE | 2018-07-03 22:05 | NUR ---
PROVIDER IN ROOM TO DISCUSS CARE WITH PT. DIMITRI MARC ASKS PT ABOUT ANY HX OF BLOOD LOSS D/T PT'S HBG BEING LOW. PT STATES HE HAS HAD SEVERAL DARK STOOLS SINCE HIS DISCHARGE
[2018-07-03 22:15] LABS: PROTHROMBIN TIME PATIENT 13.7 SEC (12.2-14.7)
[2018-07-03 22:30] LABS: ALANINE AMINOTRANSFERASE 24 U/L (0-55); ALBUMIN 3.8 GM/DL (3.2-4.5); ALKALINE PHOSPHATASE 69 U/L (40-136); BILIRUBIN,TOTAL 0.3 MG/DL (0.1-1.0); BUN/CREATININE RATIO 20; CALCIUM 9.9 MG/DL (8.5-10.1); CARBON DIOXIDE 22 MMOL/L (21-32); CHLORIDE 104 MMOL/L (98-107); CREATININE SERUM 1.53 MG/DL (0.60-1.30); GFR ESTIMATED 46; GLUCOSE 360 MG/DL (70-105); SODIUM 138 MMOL/L (135-145); TOTAL PROTEIN 6.7 GM/DL (6.4-8.2)
--- OUTSIDE RECORDS SUMMARY | 2018-07-03 22:31 | XMS REPORT | Continuity of Care Document ---
[...] CORONARY ATHEROSCLEROSIS OF UNSPECIFIED TYPE OF VESSEL [place] [address] OR GRAFT 02/25/2011 272.4 OTHER AND UNSPECIFIED HYPERLIPIDEMIA 02/25/2011 414.00 CORONARY ATHEROSCLEROSIS OF UNSPECIFIED TYPE OF VESSEL [place] [address] OR GRAFT 02/25/2011 272.4 OTHER AND UNSPECIFIED HYPERLIPIDEMIA 02/25/2011 414.00 CORONARY ATHEROSCLEROSIS OF UNSPECIFIED TYPE OF VESSEL [place] [address] OR GRAFT 02/25/2011 MARLOW DO, SAMANTA K 272.4 OTHER AND UNSPECIFIED HYPERLIPIDEMIA 02/25/2011 MARLOW DO, SAMANTA K 414.00 CORONARY ATHEROSCLEROSIS OF UNSPECIFIED TYPE OF VESSEL [place] [address] OR GRAFT 02/25/2011 MARLOW DO, SAMANTA K 272.4 OTHER AND UNSPECIFIED HYPERLIPIDEMIA 02/25/2011 MARLOW DO, SAMANTA K 414.00 CORONARY ATHEROSCLEROSIS OF UNSPECIFIED TYPE OF VESSEL [place] [address] OR GRAFT 02/25/2011 MARLOW DO, SAMANTA K 272.4 OTHER AND UNSPECIFIED HYPERLIPIDEMIA 02/25/2011 MARLOW DO, SAMANTA K 414.00 CORONARY ATHEROSCLEROSIS OF UNSPECIFIED TYPE OF VESSEL [address] OR GRAFT 02/25/2011 MARLOW DO, SAMANTA K 272.4 OTHER AND UNSPECIFIED HYPERLIPIDEMIA 02/25/2011 MARLOW DO, SAMANTA K 414.00 CORONARY ATHEROSCLEROSIS OF UNSPECIFIED TYPE OF VESSEL [address] [address] OR GRAFT 04/27/2011 DIMITRI ABBASI, SALVATORE 789.00 [...] MD Ot I25.10 ATHSCL HEART DISEASE OF [place] CORONARY 06/26/2018 RAMIRO TRUONG MD Ot I25.810 ATHEROSCLEROSIS OF CABG W/O ANGINA PECTO 06/26/2018 RAMIRO TRUONG MD Ot K80.20 CALCULUS OF GALLBLADDER W/O CHOLECYSTITI 06/26/2018 RAMIRO TRUONG MD Ot R73.09 OTHER ABNORMAL GLUCOSE 06/26/2018 RAMIRO TRUONG MD Ot Z79.82 SNF (CURRENT) USE OF ASPIRIN 06/26/2018 RAMIRO TRUONG MD Ot Z79.899 OTHER SNF (CURRENT) DRUG THERAPY 06/26/2018 RAMIRO TRUONG MD Ot Z95.1 PRESENCE OF AORTOCORONARY BYPASS GRAFT 06/26/2018 RAMIRO TRUONG MD Ot E78.5 HYPERLIPIDEMIA, UNSPECIFIED 06/26/2018 RAMIRO TRUONG MD Ot F17.210 NICOTINE DEPENDENCE, CIGARETTES, UNCOMPL 06/26/2018 RAMIRO TRUONG MD Ot I10 ESSENTIAL (PRIMARY) HYPERTENSION 06/26/2018 RAMIRO TRUONG MD Ot I21.4 NON-ST ELEVATION (NSTEMI) MYOCARDIAL INF 06/26/2018 RAMIRO TRUONG MD Ot I25.10 ATHSCL HEART DISEASE OF [place] [address] CORONARY 06/26/2018 RAMIRO TRUONG MD Ot I25.810 ATHEROSCLEROSIS OF CABG W/O ANGINA PECTO 06/26/2018 RAMIRO TRUONG MD Ot K80.20 CALCULUS OF GALLBLADDER W/O CHOLECYSTITI 06/26/2018 RAMIRO TRUONG MD Ot R73.09 OTHER ABNORMAL GLUCOSE 06/26/2018 RAMIRO TRUONG MD Ot Z79.82 PURCHASING ASSISTANT (CURRENT) USE OF ASPIRIN 06/26/2018 RAMIRO TRUONG MD Ot Z79.899 OTHER SNF (CURRENT) DRUG THERAPY 06/26/2018 RAMIRO TRUONG MD Ot Z95.1 PRESENCE OF AORTOCORONARY BYPASS GRAFT Procedures Code [place] [address] ROUTINE VENIPUNCTURE 08/21/2012 32634 CMP 08/21/2012 77381 CBC 08/21/2012 71056 ROUTINE VENIPUNCTURE 08/24/2012 96464 LIPID PANEL 08/24/[address] CHEST W/O DYE 09/10/2013 03170 ROUTINE VENIPUNCTURE 09/26/2013 [id number] GFR CALC (RESULT ONLY) 09/26/2013 24198 CMP 09/26/2013 47726 LIPID PANEL 09/26/2013 44858 CULTURE URINE 01/01/2014 34305 UA W/ CULTURE IF INDICATED 01/01/2014 Results [...] NR Blood erythrocyte morphology finding identification NORMAL [facility] Whole blood basic metabolic panel - [...] platelet mean volume measurement 9.8 [foz_us] 7.4-10.4 Complete blood count (CBC) with automated white blood cell (WBC) differential - 07/03/18 21:53 Blood leukocytes automated count (number/volume) 15.4 10*3/uL 4.3-11.0 Blood erythrocytes automated count (number/volume) 2.20 10*6/uL 4.35-5.85 Venous blood hemoglobin measurement (mass/volume) 6.7 g/dL 13.3-17.7 Blood hematocrit (volume fraction) 21 % 40-54 Automated erythrocyte mean corpuscular volume 95 [foz_us] 80-99 Automated erythrocyte mean corpuscular hemoglobin (mass per erythrocyte) 30 pg 25-34 Automated erythrocyte mean corpuscular hemoglobin concentration measurement ( mass/volume) 32 g/dL 32-36 Automated erythrocyte distribution width ratio 15.1 % 10.0-14.5 Automated blood platelet count (count/volume) 287 10*3/uL 130-400 Automated blood platelet mean volume measurement 9.6 [foz_us] 7.4-10.4 Automated blood neutrophils/100 leukocytes 62 % 42-75 Automated blood lymphocytes/100 leukocytes 25 % 12-44 Blood monocytes/100 leukocytes 7 % 0-12 Automated blood eosinophils/100 leukocytes 7 % 0-10 Automated blood basophils/100 leukocytes 0 % 0-10 Blood neutrophils automated count (number/volume) 9.5 10*3 1.8-7.8 Blood lymphocytes automated count (number/volume) 3.8 10*3 1.0-4.0 Blood monocytes automated count (number/volume) 1.1 10*3 0.0-1.0 Automated eosinophil count 1.1 10*3/uL 0.0-0.3 Automated blood basophil count (count/volume) 0.0 10*3/uL 0.0-0.1 PT panel in platelet poor plasma by coagulation assay - 07/03/18 21:53 Prothrombin time (PT) in platelet poor plasma by coagulation assay 13.7 s 12.2-14.7 INR in platelet poor plasma or blood by coagulation assay 1.0 0.8-1.4 Activated partial thromboplastin time (aPTT) in platelet poor plasma bycoagulation assay - 07/03/18 21:53 Activated partial thromboplastin time (aPTT) in platelet poor plasma bycoagulation assay 33 s 24-35 Serum or plasma troponin i.cardiac measurement (mass/volume) - 07/03/18 21:53 Serum or plasma troponin i.cardiac measurement (mass/volume) < ng/ mL <0.028 Myoglobin, serum - 07/03/18 21:53 Myoglobin, serum 38.6 ng/mL 10.0-92.0 Venous blood hemoglobin measurement (mass/volume) - 07/03/18 22:12 Venous blood hemoglobin measurement (mass/volume) 5.6 g/dL 13.3-17.7 Encounters ACCT No. Visit Date/Time Discharge Status Pt. Type Provider Facility Loc./Unit Complaint [id number] 01/01/2014 09:42:00 01/01/2014 23:59:59 CLS Outpatient SAMANTA MARLOW DO [id number] 09/26/2013 08:02:00 09/26/2013 23:59:59 CLS Outpatient SAMANTA MARLOW DO [id number] 09/10/2013 10:44:00 09/10/2013 23:59:59 CLS Outpatient SAMANTA MARLOW DO [id number] 08/21/2012 09:29:00 08/21/2012 23:59:59 CLS Outpatient SAMANTA MARLOW DO [id number] 10/19/2011 10:32:00 10/19/2011 23:59:59 CLS Outpatient SALVATORE MOSLEY MD [id number] 08/24/2012 07:57:00 Document Registration [id number] 08/21/2012 09:29:00 Document Registration [id number] 11/24/2016 08:38:00 Document Registration [id number] 07/01/2018 13:02:00 07/01/2018 14:13:00 DIS Emergency PILY BARBER Via [facility] ER POST HEART CATH 06/25, RASH [id number] 06/23/2018 18:59:00 06/26/2018 13:52:00 DIS Inpatient RAMIRO TRUONG MD [facility] ICU CHEST PAIN,CAD,HTN [id number] 09/17/2013 15:09:00 09/17/2013 23:59:59 CLS Outpatient [id number] 07/03/2018 21:49:00 ACT Emergency SALVATORE MOSLEY MD [facility] ER CHEST PAIN
[2018-07-03] MEDS ORDERED: PANTOPRAZOLE 40 MG (PROTONIX) VIAL IV ONE (22:45)
[2018-07-03] MEDS ORDERED: FAMOTIDINE 20MG/2ML IV (PEPCID) IVP ONE (22:45)
[2018-07-03 23:03] LABS: ANISOCYTOSIS SLIGHT; BAND NEUTROPHILS 0 %; BASOPHILS % (MANUAL) 1 %; EOSINOPHILS % (MANUAL) 2 %; HYPOCHROMASIA MODERATE; LYMPHOCYTES % (MANUAL) 23 %; MONOCYTES % (MANUAL) 4 %; NEUTROPHILS % (MANUAL) 70 %; POLYCHROMASIA SLIGHT
--- NOTE | 2018-07-03 23:06 | ED Chest Pain ---
General Chief Complaint: Chest Pain Stated Complaint: CHEST PAIN Nursing Triage Note: PT VERBALIZED HE HAS HAD CHEST PAIN THAT RADIATES TO HIS UPPER POSTERIOR BACK THAT IS WORST AFTER MEALS. PT STATES HE WAS RELEASED THIS TUESDAY FOLLOWING A STENT BEING PLACED TWO WEEKS PRIOR. PT STATES HE USED HIS NEWLY PRESCIBED BLOOD THINNERS AT 2133. Nursing Sepsis Screen: No Definite Risk Source: patient, family, old records Exam Limitations: no limitations History of Present Illness Date Seen by Provider: Jul 03, 2018 Time Seen by Provider: 21:48 Initial Comments This 63-year-old gentleman presents to the emergency room with complaints of chest pain that radiates to his mid upper back. Symptoms started within the past couple hours. He was just dismissed from the hospital June 26 after being treated for non-ST elevation MS. He had stenting of one of his vein grafts. During that admission he was also noted to have gallstones by gallbladder ultrasound. CT angiogram of the chest was unremarkable for aortic pathology or PE. He has been taking Brilinta into and aspirin daily. His last dose was around 21:00 today. He notes having dark stools for about the past week. Allergies and Home Medications Allergies Coded Allergies: LIBBYANo Known Allergies (Unverified Allergy, Mild, 07/20/09) Home Medications Aspirin 81 Mg Chew, 1 PO DAILY, (Reported) Atorvastatin Calcium 40 Mg Tablet, 40 MG PO HS Prescribed by: URMILA MUÑOZ on 06/26/18916 Clopidogrel Bisulfate 75 Mg Tablet, 75 MG PO DAILY Prescribed by: URMILA MUÑOZ on 06/26/18916 Metoprolol Succinate 50 Mg Tab.er.24h, 50 MG PO DAILY Prescribed by: URMILA MUÑOZ on 06/26/18916 [place] 3 Polyunsat Fatty Acids 1,000 Mg Cap, 1,000 MG PO BID, (Reported) Ticagrelor 90 Mg Tablet, 90 MG PO BID Prescribed by: PILY BARBER on 07/01/18 1336 Patient Home Medication List Home Medication List Reviewed: Yes Review of Systems Review of Systems Constitutional: no symptoms reported EENTM: No Symptoms Reported Respiratory: No Symptoms Reported Cardiovascular: No Symptoms Reported Gastrointestinal: See HPI Genitourinary: No Symptoms Reported Musculoskeletal: no symptoms reported Skin: no symptoms reported Psychiatric/Neurological: No Symptoms Reported Endocrine: No Symptoms Reported Hematologic/Lymphatic: No Symptoms Reported Past Qravvyq-Jxuvhe-Jxzisv Hx Past Med/Social Hx: Reviewed and Corrections made Patient Social History Type Used: Cigarettes 2nd Hand Smoke Exposure: Yes Recent Foreign Travel: No Contact w/Someone Who Travel: No Recent Infectious Disease Expo: No Recent Hopitalizations: No Immunizations Up To Date Date of Influenza Vaccine: Mar 04, 2011 Seasonal Allergies Seasonal Allergies: No Past Medical History Surgeries: Yes Abdominal (Hernia repair), CABG, Coronary Stent Respiratory: Yes Asthma, COPD Currently Using CPAP: No Currently Using BIPAP: No Cardiac: Yes Coronary Artery Disease, Heart Attack, High Cholesterol, Hypertension, Palpitations Neurological: No Genitourinary: Yes Prostate Problems, Bladder Infection Gastrointestinal: No Musculoskeletal: Yes Arthritis Endocrine: No HEENT: Yes (False right eye) Cancer: No Psychosocial: No Integumentary: No Blood Disorders: No Family Medical History Reviewed Nursing Family Hx CAD Under 55 Years Old, Hypertension Physical Exam Vital Signs Vital Signs - First Documented 07/03/18 21:47 Temp 97.8 Pulse 112 Resp 22 B/P (MAP) 183/91 (121) Pulse Ox 98 O2 Delivery Room Air Capillary Refill : Less Than 3 Seconds Height, Weight, BMI Height: 6'0" Weight: 210lbs. 2.0oz. 95.562194oa; 27.2 BMI Method:Stated General Appearance: WD/WN, Moderate Distress HEENT: Normal ENT Inspection, Other (False right eye) Neck: Normal Inspection Respiratory: Lungs Clear, Normal Breath Sounds, No Accessory Muscle Use, No Respiratory Distress Cardiovascular: Regular Rate, Rhythm, No Edema, No Murmur, Normal Peripheral Pulses Gastrointestinal: Normal Bowel Sounds, Non Tender, Soft, Other (Soft abdominal wall hernia) Extremity: Normal Inspection, No Calf Tenderness, No Pedal Edema Neurologic/Psychiatric: Alert, Oriented x3, No Motor/Sensory Deficits, Normal Mood/Affect, chef german II-XII Norm as Tested Skin: Normal Color, Warm/Dry Progress/Results/Core Measures Results/Orders Lab Results Laboratory Tests Test 07/03/18 21:53 07/03/18 22:12 07/03/18 22:55 Range/Units White Blood Count 15.4 H 4.3-11.0 10^3/uL Red Blood Count 2.20 L 4.35-5.85 10^6/uL Hemoglobin 6.7 *L 5.6 *L 13.3-17.7 G/DL Hematocrit 21 L 40-54 % Mean Corpuscular Volume 95 80-99 FL Mean Corpuscular Hemoglobin 30 25-34 PG Mean Corpuscular Hemoglobin Concent 32 32-36 G/DL Red Cell Distribution Width 15.1 H 10.0-14.5 % Platelet Count 287 130-400 10^3/uL Mean Platelet Volume 9.6 7.4-10.4 FL Neutrophils (%) (Auto) 62 42-75 % Lymphocytes (%) (Auto) 25 12-44 % Monocytes (%) (Auto) 7 0-12 % Eosinophils (%) (Auto) 7 0-10 % Basophils (%) (Auto) 0 0-10 % Neutrophils # (Auto) 9.5 H 1.8-7.8 X 10^3 Lymphocytes # (Auto) 3.8 1.0-4.0 X 10^3 Monocytes # (Auto) 1.1 H 0.0-1.0 X 10^3 Eosinophils # (Auto) 1.1 H 0.0-0.3 10^3/uL Basophils # (Auto) 0.0 0.0-0.1 10^3/uL Neutrophils % (Manual) 70 % Lymphocytes % (Manual) 23 % Monocytes % (Manual) 4 % Eosinophils % (Manual) 2 % Basophils % (Manual) 1 % Band Neutrophils 0 % Polychromasia SLIGHT Hypochromasia MODERATE Anisocytosis SLIGHT Macrocytosis SLIGHT Prothrombin Time 13.7 12.2-14.7 SEC INR Comment 1.0 0.8-1.4 Activated Partial Thromboplast Time 33 24-35 SEC Sodium Level 138 135-145 MMOL/L Potassium Level 4.0 3.6-5.0 MMOL/L Chloride Level 104 98-107 MMOL/L Carbon Dioxide Level 22 21-32 MMOL/L Anion Gap 12 5-14 MMOL/L Blood Urea Nitrogen 30 H 7-18 MG/DL Creatinine 1.53 H 0.60-1.30 MG/DL Estimat Glomerular Filtration Rate 46 BUN/Creatinine Ratio 20 Glucose Level 360 H 70-105 MG/DL Calcium Level 9.9 8.5-10.1 MG/DL Corrected Calcium 10.1 8.5-10.1 MG/DL Magnesium Level 2.0 1.8-2.4 MG/DL Total Bilirubin 0.3 0.1-1.0 MG/DL Aspartate Amino Transf (AST/SGOT) 13 5-34 U/L Alanine Aminotransferase (ALT/SGPT) 24 0-55 U/L Alkaline Phosphatase 69 40-136 U/L Myoglobin 38.6 10.0-92.0 NG/ML Troponin I < 0.028 <0.028 NG/ML Total Protein 6.7 6.4-8.2 GM/DL Albumin 3.8 3.2-4.5 GM/DL Lipase 71 8-78 U/L Urine Color YELLOW Urine Clarity CLEAR Urine pH 5 5-9 Urine Specific [place] 1.015 L 1.016-1.022 Urine Protein 1+ H NEGATIVE Urine Glucose (UA) 4+ H NEGATIVE Urine Ketones NEGATIVE NEGATIVE Urine Nitrite NEGATIVE NEGATIVE Urine Bilirubin NEGATIVE NEGATIVE Urine Urobilinogen NORMAL NORMAL MG/DL Urine Leukocyte Esterase NEGATIVE NEGATIVE Urine RBC (Auto) NEGATIVE NEGATIVE Urine RBC NONE /HPF Urine WBC RARE /HPF Urine Crystals PRESENT H /LPF Urine Calcium Oxalate Crystals RARE H /LPF Urine Bacteria NEGATIVE /HPF Urine Casts NONE /LPF Urine Mucus NEGATIVE /LPF Urine Culture Indicated NO My Orders Orders - SALVATORE MOSLEY MD Cbc With Automated Diff (07/03/18 21:52) Magnesium (07/03/18 21:52) Chest 1 View, Ap/Pa Only (07/03/18 21:52) Ekg Tracing (07/03/18 21:52) Cardiac Profile 1 (07/03/18 21:52) Comprehensive Metabolic Panel (07/03/18 21:52) Myoglobin Serum (07/03/18 21:52) Protime With Inr (07/03/18 21:52) Partial Thromboplastin Time (07/03/18 21:52) O2 (07/03/18 21:52) Monitor-Rhythm Ecg Trace Only (07/03/18 21:52) Ed Iv/Invasive Line Start (07/03/18 21:52) Nitroglycerin 0.4 Mg Btl 25's (Nitrostat (07/03/18 22:00) Aspirin Chewable Tablet (Baby Aspirin Ch (07/03/18 22:00) Manual Differential (07/03/18 21:53) Lipase (07/03/18 22:15) Red Cells Leukocytes Reduced (07/03/18 22:20) Type And Screen (07/03/18 22:20) Hemoglobin (07/03/18 22:22) Famotidine Injection (Pepcid Injection) (07/03/18 22:45) Pantoprazole Injection (Protonix Injecti (07/03/18 22:45) Ua Culture If Indicated (07/03/18 22:53) Medications Given in ED Current Medications Medications Dose Ordered Sig/Naomie Route Start Time Stop Time Status Last Admin Dose Admin Aspirin 243 mg ONCE ONCE PO 07/03/18 22:00 07/03/18 22:01 DC 07/03/18 21:58 243 MG Famotidine 20 mg ONCE ONCE IVP 07/03/18 22:45 07/03/18 22:46 DC 07/03/18 23:05 20 MG Nitroglycerin 0.4 mg UD PRN SL 07/03/18 22:00 07/04/18 00:59 DC 07/03/18 22:00 0.4 MG Pantoprazole 80 mg ONCE ONCE IV 07/03/18 22:45 07/03/18 22:46 DC 07/03/18 23:05 80 MG Vital Signs/I&O 07/03/18 07/03/18 07/03/18 21:47 21:48 21:50 Temp 97.8 Pulse 112 Resp 22 B/P (MAP) 183/91 (121) Pulse Ox 98 O2 Delivery Room Air Room Air Room Air Blood Pressure Mean: 121 Progress Progress Note : Progress Note Chest pain protocol was initiated. The balance of the 324 mg aspirin dose was given. Chest pain had began to dissipate and nitroglycerin further alleviated his pain. Hemoglobin was found to be severely low. A repeat draw was collected to confirm the anemia. 4 units of blood were ordered for crossmatch with 2 to give now and 2 to hold. Protonix and Pepcid were administered. Hemoccult study in the ER was negative. This will be repeated on the floor. Case was discussed with Dr. Glynn, Dr. Real, and Dr. Carl. They are agreeable with the transfusion. Patient will be admitted to the ICU. Patient has multiple potential causes of his pain including GI pathology such as esophagitis, gastritis, gallstones etc. Given the notable coronary artery disease, cardiac ischemia could also be involved. Initial ECG Impression Date: Jul 03, 2018 Initial ECG Impression Time: 21:53 Initial ECG Rate: 105 Initial ECG Rhythm: S.Tach Comment Sinus tachycardia with bigeminy. No ST elevation or depression to suggest ischemia. Diagnostic Imaging Diagonstic Imaging: Xray Plain Films/CT/US/NM/MRI: chest Comments Chest x-ray viewed by me. Report not yet available. No acute abnormality appreciated. Departure Communication (Admissions) Time/Spoke to Admitting Phy: 22:57 Dr. Meseret Glynn at 22:40 Dr. Real at 22:45 Impression Primary Impression: Chest pain Qualified Codes: R07.9 - Chest pain, unspecified Additional Impressions: Severe anemia Coronary artery disease Qualified Codes: I25.810 - Atherosclerosis of coronary artery bypass graft(s) without angina pectoris Acute renal insufficiency Bigeminy Disposition: 09 ADMITTED INPATIENT Condition: Improved Admissions Decision to Admit Reason: Admit from ER (General) Decision to Admit/Date: Jul 04, 2018 Time/Decision to Admit Time: 22:55 Departure-Patient Inst. Referrals: [facility] (PCP) Primary Care Physician KISHA PERDOMO APRN (Family) Primary Care Physician SALVATORE MOSLEY MD Jul 03, 2018 23:05
[2018-07-03 23:09] LABS: BILIRUBIN,URINE NEGATIVE (NEGATIVE); CLARITY,URINE CLEAR; COLOR,URINE YELLOW; GLUCOSE, URINE (UA) 4+ (NEGATIVE); KETONES,URINE NEGATIVE (NEGATIVE); LEUKOCYTE ESTERASE ,URINE NEGATIVE (NEGATIVE); NITRITE,URINE NEGATIVE (NEGATIVE); PH,URINE 5 (5-9); PROTEIN,URINE 1+ (NEGATIVE); UROBILINOGEN,URINE NORMAL (NORMAL)
[2018-07-03] MEDS ORDERED: NS IV 500 ML 500 ML ONE (23:13)
[2018-07-03 23:18] LABS: BACTERIA,URINE NEGATIVE /HPF; WBC,URINE RARE /HPF
[2018-07-03 23:19] LABS: CALCIUM OXALATE CRYSTALS,UR RARE /LPF
--- NOTE | 2018-07-03 23:26 | NUR ---
IN ROOM TO BEGIN BLOOD TRANSFUSION, PT STATES THAT HE WAS TOLD HE IS OPOS PER THE TO HIS KNOWLEDGE, INFUSION HELD, ALERTED PROVIDER.
--- OUTSIDE RECORDS SUMMARY | 2018-07-03 23:47 | XMS REPORT | Continuity of Care Document ---
[...] K 296.30 MO DEPRESSIVE RECURRENT UNSPECIFIED 11/14/2008 LEE TORRES SAMANTA K 296.30 MO DEPRESSIVE RECURRENT [...] CORONARY ATHEROSCLEROSIS OF UNSPECIFIED TYPE OF VESSEL [place] OR GRAFT 02/25/2011 272.4 OTHER AND UNSPECIFIED HYPERLIPIDEMIA 02/25/2011 414.00 CORONARY ATHEROSCLEROSIS OF UNSPECIFIED TYPE OF VESSEL [place] OR GRAFT 02/25/2011 272.4 OTHER AND UNSPECIFIED HYPERLIPIDEMIA 02/25/2011 414.00 CORONARY ATHEROSCLEROSIS OF UNSPECIFIED TYPE OF VESSEL [place] OR GRAFT 02/25/2011 MARLOW DO, SAMANTA K 272.4 OTHER AND UNSPECIFIED HYPERLIPIDEMIA 02/25/2011 MARLOW DO, SAMANTA K 414.00 CORONARY ATHEROSCLEROSIS OF UNSPECIFIED TYPE OF VESSEL [place] OR GRAFT 02/25/2011 MARLOW DO, SAMANTA K 272.4 OTHER AND UNSPECIFIED HYPERLIPIDEMIA 02/25/2011 MARLOW DO, SAMANTA K 414.00 CORONARY ATHEROSCLEROSIS OF UNSPECIFIED TYPE OF VESSEL [place] OR GRAFT 02/25/2011 MARLOW DO, SAMANTA K 272.4 OTHER AND UNSPECIFIED HYPERLIPIDEMIA 02/25/2011 MARLOW DO, SAMANTA K 414.00 CORONARY ATHEROSCLEROSIS OF UNSPECIFIED TYPE OF VESSEL [place] OR GRAFT 02/25/2011 MARLOW DO, SAMANTA K 272.4 OTHER AND UNSPECIFIED HYPERLIPIDEMIA 02/25/2011 MARLOW DO, SAMANTA K 414.00 CORONARY ATHEROSCLEROSIS OF UNSPECIFIED TYPE OF VESSEL [place] OR GRAFT 04/27/2011 DIMITRI ABBASI, SALVATORE 789.00 [...] MD Ot I25.10 ATHSCL HEART DISEASE OF [place] CORONARY 06/26/2018 RAMIRO TRUONG MD Ot I25.810 [...] MD Ot I25.10 ATHSCL HEART DISEASE OF [place] CORONARY 06/26/2018 RAMIRO TRUONG MD Ot I25.810 ATHEROSCLEROSIS OF CABG W/O ANGINA PECTO 06/26/2018 RAMIRO TRUONG MD Ot K80.20 CALCULUS OF GALLBLADDER W/O CHOLECYSTITI 06/26/2018 RAMIRO TRUONG MD Ot R73.09 OTHER ABNORMAL GLUCOSE 06/26/2018 RAMIRO TRUONG MD Ot Z79.82 STATEMENT REQUEST CLERK (CURRENT) USE OF ASPIRIN 06/26/2018 RAMIRO TRUONG MD Ot Z79.899 OTHER [facility] (CURRENT) DRUG THERAPY 06/26/2018 RAMIRO TRUONG MD Ot Z95.1 PRESENCE OF AORTOCORONARY BYPASS GRAFT Procedures Code [place] [address] ROUTINE VENIPUNCTURE 08/21/2012 37514 CMP 08/21/2012 77217 CBC 08/21/2012 08050 ROUTINE VENIPUNCTURE 08/24/2012 85254 LIPID PANEL 08/24/[address] CHEST W/O DYE 09/10/2013 92080 ROUTINE VENIPUNCTURE 09/26/2013 [id number] GFR CALC (RESULT ONLY) 09/26/2013 14710 CMP 09/26/2013 11476 LIPID PANEL 09/26/2013 83222 CULTURE URINE 01/01/2014 02927 UA W/ CULTURE IF INDICATED 01/01/2014 Results [...] NR Blood erythrocyte morphology finding identification NORMAL [facility] Whole blood basic metabolic panel - [...] poor plasma bycoagulation assay 33 s 24-35 Comprehensive metabolic panel - 07/03/18 21:53 Serum or plasma sodium measurement (moles/volume) 138 mmol/L 135-145 Serum or plasma potassium measurement (moles/volume) 4.0 mmol/L 3.6-5.0 Serum or plasma chloride measurement (moles/volume) 104 mmol/L 98-107 Carbon dioxide 22 mmol/L 21-32 Serum or plasma anion gap determination (moles/volume) 12 mmol/L 5-14 Serum or plasma urea nitrogen measurement (mass/volume) 30 mg/dL 7-18 Serum or plasma creatinine measurement (mass/volume) 1.53 mg/dL 0.60-1.30 Serum or plasma urea nitrogen/creatinine mass ratio 20 NRG Serum or plasma creatinine measurement with calculation of estimated glomerular filtration rate 46 NRG Serum or plasma glucose measurement (mass/volume) 360 mg/dL 70-105 Serum or plasma calcium measurement (mass/volume) 9.9 mg/dL 8.5-10.1 Serum or plasma total bilirubin measurement (mass/volume) 0.3 mg/dL 0.1-1.0 Serum or plasma alkaline phosphatase measurement (enzymatic activity/volume) 69 U/L 40-136 Serum or plasma aspartate aminotransferase measurement (enzymatic activity/ volume) 13 U/L 5-34 Serum or plasma alanine aminotransferase measurement (enzymatic activity/volume ) 24 U/L 0-55 Serum or plasma protein measurement (mass/volume) 6.7 g/dL 6.4-8.2 Serum or plasma albumin measurement (mass/volume) 3.8 g/dL 3.2-4.5 CALCIUM CORRECTED 10.1 mg/dL 8.5-10.1 Magnesium - 07/03/18 21:53 Magnesium 2.0 mg/dL 1.8-2.4 Serum or plasma troponin i.cardiac measurement (mass/volume) - 07/03/18 21:53 Serum or plasma troponin i.cardiac measurement (mass/volume) < ng/ mL <0.028 Myoglobin, serum - 07/03/18 21:53 Myoglobin, serum 38.6 ng/mL 10.0-92.0 Lipase - 07/03/18 21:53 Lipase 71 U/L 8-78 Blood manual differential performed detection - 07/03/18 21:53 Blood monocytes/100 leukocytes 4 % NRG Manual blood segmented neutrophils/100 leukocytes 70 % NRG Blood band neutrophils/100 leukocytes 0 % NRG Manual blood lymphocytes/100 leukocytes 23 % NRG Manual eosinophils/100 leukocytes in nose 2 % NRG Manual blood basophils/100 leukocytes 1 % NRG Blood polychromasia detection by light microscopy SLIGHT NRG Blood anisocytosis detection by light microscopy SLIGHT NRG Blood macrocytes detection by light microscopy SLIGHT NRG Blood hypochromia detection by light microscopy MODERATE NRG Venous blood hemoglobin measurement (mass/volume) - 07/03/18 22:12 Venous blood hemoglobin measurement (mass/volume) 5.6 g/dL 13.3-17.7 RED CELLS LEUKO REDUCED AS1 - 07/03/18 22:12 RED CELLS LEUKO REDUCED AS1 ISSUED 07/03/18 2313 NRG Blood type T Indirect antibody screen panel - 07/03/18 22:12 ABO+Rh group AP NRG Transfusion band number [id number] NRG Blood group antibody screen NEGATIVE NRG Complete urinalysis with reflex to culture - 07/03/18 22:55 Urine color determination YELLOW NRG Urine clarity determination CLEAR NRG Urine pH measurement by test strip 5 5-9 Specific gravity of urine by test strip 1.015 1.016- 1.022 Urine protein assay by test strip, semi-quantitative 1+ NEGATIVE Urine glucose detection by automated test strip 4+ NEGATIVE Erythrocytes detection in urine sediment by light microscopy NEGATIVE NEGATIVE Urine ketones detection by automated test strip NEGATIVE NEGATIVE Urine nitrite detection by test strip NEGATIVE NEGATIVE Urine total bilirubin detection by test strip NEGATIVE NEGATIVE Urine urobilinogen measurement by automated test strip (mass/volume) NORMAL NORMAL Urine leukocyte esterase detection by dipstick NEGATIVE NEGATIVE Automated urine sediment erythrocyte count by microscopy (number/high power field) NONE NRG Automated urine sediment leukocyte count by microscopy (number/high power field ) RARE NRG Bacteria detection in urine sediment by light microscopy NEGATIVE NRG Crystals detection in urine sediment by light microscopy PRESENT NRG Casts detection in urine sediment by light microscopy NONE NRG Mucus detection in urine sediment by light microscopy NEGATIVE NRG Complete urinalysis with reflex to culture NO NRG Calcium oxalate crystals detection in urine sediment by light microscopy RARE NRG Encounters ACCT No. Visit Date/Time Discharge Status Pt. Type Provider Facility Loc./Unit Complaint [id number] 01/01/2014 09:42:00 01/01/2014 23:59:59 CLS Outpatient SAMANTA MARLOW DO [id number] 09/26/2013 08:02:00 09/26/2013 23:59:59 CLS Outpatient SAMANTA MARLOW DO [id number] 09/10/2013 10:44:00 09/10/2013 23:59:59 CLS Outpatient SAMANTA MARLOW DO [id number] 08/21/2012 09:29:00 08/21/2012 23:59:59 CLS Outpatient SAMANTA MARLOW DO [id number] 10/19/2011 10:32:00 10/19/2011 23:59:59 CLS Outpatient DIMITRI ABBASI, SALVATORE [id number] 08/24/2012 07:57:00 Document Registration [id number] 08/21/2012 09:29:00 Document Registration [id number] 11/24/2016 08:38:00 Document Registration [id number] 07/01/2018 13:02:00 07/01/2018 14:13:00 DIS Emergency SUNIL PILY [facility] ER POST HEART CATH 06/25, RASH [id number] 06/23/2018 18:59:00 06/26/2018 13:52:00 DIS Inpatient RAMIRO TRUONG MD [facility] ICU CHEST PAIN,CAD,HTN [id number] 09/17/2013 15:09:00 09/17/2013 23:59:59 CLS Outpatient [id number] 07/03/2018 22:56:00 ACT Inpatient RAMIRO TRUONG MD [facility] ICU SEVERE ANEMIA, CHEST PAIN
[2018-07-04] VITALS (29 sets, daily range): BP systolic 115–171; BP diastolic 49–112
[2018-07-04] MEDS ORDERED: ONDANSETRON 4 MG/2 ML (SDV) Z0FRAN IV PRN (01:00)
[2018-07-04] MEDS: NS IV 1000 ML 1,000 ML IV SCH ×3 (01:00→12:52)
[2018-07-04] MEDS ORDERED: NITROGLYCERIN 0.4 MG SL TABS BTL 25'S SL PRN (01:15)
[2018-07-04] MEDS ORDERED: morphine INJ 10 MG/ML 1ML (SYR OR VIAL) IV PRN (01:15)
[2018-07-04 04:17] LABS: BASOPHILS % (AUTO) 0 % (0-10); EOSINOPHILS # (AUTO) 0.6 10^3/uL (0.0-0.3); EOSINOPHILS % (AUTO) 5 % (0-10); LYMPHOCYTES # (AUTO) 2.6 X 10^3 (1.0-4.0); LYMPHOCYTES % (AUTO) 21 % (12-44); MEAN CORPUSCULAR HEMOGLOBIN 30 PG (25-34); MEAN CORPUSCULAR HGB CONC 32 G/DL (32-36); MEAN CORPUSCULAR VOLUME 92 FL (80-99); MEAN PLATELET VOLUME 9.8 FL (7.4-10.4); MONOCYTES # (AUTO) 0.8 X 10^3 (0.0-1.0); MONOCYTES % (AUTO) 7 % (0-12); NEUTROPHILS # (AUTO) 7.9 X 10^3 (1.8-7.8); NEUTROPHILS % (AUTO) 66 % (42-75); PLATELET COUNT 240 10^3/uL (130-400); RED CELL DISTRIBUTION WIDTH 15.5 % (10.0-14.5); WHITE BLOOD COUNT 11.9 10^3/uL (4.3-11.0)
[2018-07-04 04:20] LABS: HEMATOCRIT 20 % (40-54); HEMOGLOBIN 6.5 G/DL (13.3-17.7)
[2018-07-04 04:39] LABS: ALANINE AMINOTRANSFERASE 21 U/L (0-55); ALBUMIN 3.3 GM/DL (3.2-4.5); ALKALINE PHOSPHATASE 61 U/L (40-136); BILIRUBIN,TOTAL 0.5 MG/DL (0.1-1.0); BUN/CREATININE RATIO 23; CALCIUM 9.3 MG/DL (8.5-10.1); CARBON DIOXIDE 21 MMOL/L (21-32); CHLORIDE 107 MMOL/L (98-107); CHOLESTEROL 104 MG/DL (< 200); CREATININE SERUM 1.28 MG/DL (0.60-1.30); GFR ESTIMATED 56; GLUCOSE 233 MG/DL (70-105); HDL CHOLESTEROL 28 MG/DL (40-60); POTASSIUM 3.9 MMOL/L (3.6-5.0); SODIUM 137 MMOL/L (135-145); TOTAL PROTEIN 5.8 GM/DL (6.4-8.2); TRIGLYCERIDES 116 MG/DL (<150); VLDL CHOLESTEROL 23 MG/DL (5-40)
--- NOTE | 2018-07-04 07:28 | Diagnostic Imaging Report ---
INDICATION: Chest pain, cough. COMPARISON: 06/23/2018. FINDINGS: Stable left basilar linear opacities likely on the basis of atelectasis/scar. No new airspace opacities. No pleural effusion or pneumothorax. Unchanged cardiomegaly. Status post CABG. IMPRESSION: No acute cardiopulmonary process by portable radiography. Dictated by: Dictated on workstation # [id number]
[2018-07-04] MEDS: PANTOPRAZOLE 40 MG (PROTONIX) VIAL IV SCH ×2 (07:40→20:52)
--- NOTE | 2018-07-04 08:01 | Consultation-Cardiology ---
HPI-Cardiology Cardiology Consultation Date of Consultation 07/04/18 Date of Admission Time Seen by Provider: 07:56 Indication: chest pain HPI 63 years old gentleman with history of coronary artery disease, had a recent angiogram and stenting to the vein graft to the obtuse marginal, after discharge he continued to feel weak and tired, had no energy, has been having recurrent episodes of chest pain after eating which has been worsening, had persistent chest pain yesterday and came to the emergency room, noted to be severely anemic, received blood transfusion and reported feeling better. Denied any pain without eating. Currently feeling no chest pain, has been having shortness of breath, fatigue and loss of energy. Home Medications & Allergies Allergies: Coded Allergies: NKANo Known Allergies (Unverified Allergy, Mild, 07/20/09) Home Medication List Reviewed: Yes [id number] Hx Patient Social History Marital Status: Alcohol Use: Denies Use Recreational Drug Use: Yes (HX OF ETOH) Smoking Status: Former Smoker Type Used: Cigarettes 2nd Hand Smoke Exposure: Yes Recent Foreign Travel: No Recent Infectious Disease Expo: No Recent Hopitalizations: No Immunizations Up To Date Tetanus Booster (TDap): Unknown Date of Influenza Vaccine: Mar 04, 2011 Past Medical History past medical history as described Family Medical History Significant Family History: CAD Under 55 Years Old, Hypertension Family Medical Hx noncontributory to his current condition Review of Systems Constitutional: see HPI, malaise, weakness EENTM: see HPI Respiratory: see HPI; No cough; dyspnea on exertion; No hemoptysis, No orthopnea, No phlegm, No short of breath, No stridor, No wheezing, No other Cardiovascular: see HPI, chest pain; No edema, No Hx of Intervention, No palpitations, No syncope, No vascular heart diseas, No other Gastrointestinal: see HPI, abdominal pain Genitourinary: no symptoms reported, see HPI Musculoskeletal: no symptoms reported, see HPI Skin: no symptoms reported, see HPI Psychiatric/Neurological: No Symptoms Reported, See HPI Reviewed Test Results Reviewed Test Results Lab Laboratory Tests Test 07/03/18 21:53 07/03/18 22:12 07/03/18 22:55 07/04/18 03:50 Range/Units White Blood Count 15.4 H 11.9 H 4.3-11.0 10^3/uL Red Blood Count 2.20 L 2.18 L 4.35-5.85 10^6/uL Hemoglobin 6.7 *L 5.6 *L 6.5 *L 13.3-17.7 G/DL Hematocrit 21 L 20 *L 40-54 % Mean Corpuscular Volume 95 92 80-99 FL Mean Corpuscular Hemoglobin 30 30 25-34 PG Mean Corpuscular Hemoglobin Concent 32 32 32-36 G/DL Red Cell Distribution Width 15.1 H 15.5 H 10.0-14.5 % Platelet Count 287 240 130-400 10^3/uL Mean Platelet Volume 9.6 9.8 7.4-10.4 FL Neutrophils (%) (Auto) 62 66 42-75 % Lymphocytes (%) (Auto) 25 21 12-44 % Monocytes (%) (Auto) 7 7 0-12 % Eosinophils (%) (Auto) 7 5 0-10 % Basophils (%) (Auto) 0 0 0-10 % Neutrophils # (Auto) 9.5 H 7.9 H 1.8-7.8 X 10^3 Lymphocytes # (Auto) 3.8 2.6 1.0-4.0 X 10^3 Monocytes # (Auto) 1.1 H 0.8 0.0-1.0 X 10^3 Eosinophils # (Auto) 1.1 H 0.6 H 0.0-0.3 10^3/uL Basophils # (Auto) 0.0 0.0 0.0-0.1 10^3/uL Neutrophils % (Manual) 70 % Lymphocytes % (Manual) 23 % Monocytes % (Manual) 4 % Eosinophils % (Manual) 2 % Basophils % (Manual) 1 % Band Neutrophils 0 % Polychromasia SLIGHT Hypochromasia MODERATE Anisocytosis SLIGHT Macrocytosis SLIGHT Prothrombin Time 13.7 12.2-14.7 SEC INR Comment 1.0 0.8-1.4 Activated Partial Thromboplast Time 33 24-35 SEC Sodium Level 138 137 135-145 MMOL/L Potassium Level 4.0 3.9 3.6-5.0 MMOL/L Chloride Level 104 107 98-107 MMOL/L Carbon Dioxide Level 22 21 21-32 MMOL/L Anion Gap 12 9 5-14 MMOL/L Blood Urea Nitrogen 30 H 29 H 7-18 MG/DL Creatinine 1.53 H 1.28 0.60-1.30 MG/DL Estimat Glomerular Filtration Rate 46 56 BUN/Creatinine Ratio 20 23 Glucose Level 360 H 233 H 70-105 MG/DL Calcium Level 9.9 9.3 8.5-10.1 MG/DL Corrected Calcium 10.1 9.9 8.5-10.1 MG/DL Magnesium Level 2.0 1.8-2.4 MG/DL Total Bilirubin 0.3 0.5 0.1-1.0 MG/DL Aspartate Amino Transf (AST/SGOT) 13 12 5-34 U/L Alanine Aminotransferase (ALT/SGPT) 24 21 0-55 U/L Alkaline Phosphatase 69 61 40-136 U/L Myoglobin 38.6 10.0-92.0 NG/ML Troponin I < 0.028 < 0.028 <0.028 NG/ML Total Protein 6.7 5.8 L 6.4-8.2 GM/DL Albumin 3.8 3.3 3.2-4.5 GM/DL Lipase 71 8-78 U/L Urine Color YELLOW Urine Clarity CLEAR Urine pH 5 5-9 Urine Specific [place] 1.015 L 1.016-1.022 Urine Protein 1+ H NEGATIVE Urine Glucose (UA) 4+ H NEGATIVE Urine Ketones NEGATIVE NEGATIVE Urine Nitrite NEGATIVE NEGATIVE Urine Bilirubin NEGATIVE NEGATIVE Urine Urobilinogen NORMAL NORMAL MG/DL Urine Leukocyte Esterase NEGATIVE NEGATIVE Urine RBC (Auto) NEGATIVE NEGATIVE Urine RBC NONE /HPF Urine WBC RARE /HPF Urine Crystals PRESENT H /LPF Urine Calcium Oxalate Crystals RARE H /LPF Urine Bacteria NEGATIVE /HPF Urine Casts NONE /LPF Urine Mucus NEGATIVE /LPF Urine Culture Indicated NO Triglycerides Level 116 <150 MG/DL Cholesterol Level 104 < 200 MG/DL LDL Cholesterol Direct 53 1-129 MG/DL VLDL Cholesterol 23 5-40 MG/DL HDL Cholesterol 28 L 40-60 MG/DL Physical Exam Vital Signs Vital Signs - First Documented 07/03/18 21:47 Temp 97.8 Pulse 112 Resp 22 B/P (MAP) 183/91 (121) Pulse Ox 98 O2 Delivery Room Air Capillary Refill : Less Than 3 Seconds Height, Weight, BMI Height: 6'0.00" Weight: 203lbs. 1.0oz. 92.737484lk; 26.9 BMI Method:Stated General Appearance: No Apparent Distress, WD/WN Eyes: Bilateral Eye Normal Inspection, Bilateral Eye PERRL, Bilateral Eye EOMI HEENT: PERRL/EOMI, TMs Normal, Normal ENT Inspection, Pharynx Normal Neck: Full Range of Motion, Normal Inspection, Non Tender, Supple, Carotid Bruit Respiratory: Chest Non Tender, Lungs Clear, Normal Breath Sounds, No Accessory Muscle Use, No Respiratory Distress Cardiovascular: Regular Rate, Rhythm, No Edema, No Gallop, No JVD, No Murmur, Normal Peripheral Pulses Gastrointestinal: Normal Bowel Sounds, No Organomegaly, No Pulsatile Mass, Non Tender, Soft Back: Normal Inspection, No CVA Tenderness, No Vertebral Tenderness Extremity: Normal Capillary Refill, Normal Inspection, Normal Range of Motion, Non Tender, No Calf Tenderness, No Pedal Edema Neurologic/Psychiatric: Alert, Oriented x3, No Motor/Sensory Deficits, Normal Mood/Affect Skin: Normal Color, Warm/Dry Lymphatic: No Adenopathy A/P-Cardiology Admission Diagnosis GI bleed Anemia Coronary artery disease Unstable angina Assessment/Plan GI bleed, severe anemia, received blood transfusion will need upper endoscopy and evaluation as soon as possible then consider initiating aspirin and Plavix Unstable angina, atypical presentation, had some EKG changes. Continue to monitor next Coronary artery disease history of CABG done in 2011, cardiac catheterization done on June 25, [address] Khan showing 80 percent distal left main, total occlusion of the ostium of the obtuse marginal with multiple lesions in the right coronary artery, severe stenosis in the proximal vein graft to the obtuse marginal underwent drug-eluting stent deployment using Sherri 2.5 x 18 mm with good results, patent vein graft to the OM1 and vein graft to D2, patent vein graft to right coronary artery PDA with ejection fraction 45-50 percent. Will need to be on aspirin and Plavix as soon as possible Hypertension, restart home medication, monitor blood pressure Hyperlipidemia, maintained on statin. Diabetes mellitus, followed and managed by primary care physician Tobaccobambi, educated on avoiding tobacco products Clinical Quality Measures AMI/AHF: ASA po Prior to arrival: Yes (81) DVT/VTE Risk/Contraindication: Risk Factor Score Per Nursin RFS Level Per Nursing on Admit: 4+=Very High LIANA MARTIN MD Jul 04, 2018 08:01
[2018-07-04 09:04] LABS: HEMOGLOBIN 7.7 G/DL (13.3-17.7)
[2018-07-04] MEDS ORDERED: ASPI-983 PO (09:47)
[2018-07-04] MEDS ORDERED: OMG1KC PO (09:47)
[2018-07-04] MEDS ORDERED: TICA90TA PO (09:47)
[2018-07-04] MEDS ORDERED: METO50TA15 PO (09:49)
--- NOTE | 2018-07-04 09:50 | NUR ---
SPOKE WITH THE PATIENT ABOUT HIS CURRENT MEDICATIONS, HE WAS ABLE TO TELL ME EXACTLY WHAT HE IS TAKING. I VERIFIED WHAT HAS BEEN FILLED WITH [facility] AND [facility]. [facility] FILLED: 07-01-18 BRILINTA 90MG BID #60 05-19-18 BENAZEPRIL 40MG DAILY #90 (STOPPED AT 06-26-18 DISCHARGE) 05-16-18 METOPROLOL TARTRATE 50MG BID #180 (TAKES ONE IN THE AM, SEE BELOW) [facility] FILLED: 06-26-18 PLAVIX 75MG DAILY #30 (STOPPED IN ED AND BRILINTA PRESCRIBED 07-01-18) 06-26-18 LIPITOR 40MG HS #30 (STOPPED IN ED ON 07-01-18) OTC MEDS: ASPIRIN 81MG DAILY FISH OIL BID THE PATIENT WAS ADMITTED AND DISCHARGED FROM THIS HOSPITAL 06-26-18 AT THAT TIME THE BENAZEPRIL AND IBU WERE STOPPED AND LIPITOR 40MG HS, PLAVIX 75MG DAILY WERE PRESCRIBED, AND TOPROL XL 50MG DAILY REPLACED THE TOPROL XL 25MG BID ON THE MED REC. THE PATIENT ACTUALLY HAD BEEN FILLING THE METOPROLOL TARTRATE 50MG BID. THE PRESCRIPTION FOR THE NEW TOPROL XL 50 WAS NOT SIGNED BY THE PHYSICIAN THEREFORE HE WAS NOT ABLE TO FILL IT. HE JUST TOOK ONE DAILY OF THE LOPRESSOR 50MG HE HAD AT HOME. HE DID NOT REALIZE THERE WAS A DIFFERENCE BETWEEN SUCCINATE AND TARTRATE. HE WAS THEN SEEN IN THE ED ON 07-01-18 AND DUE TO A RASH HE HAD WAS TOLD TO STOP THE LIPITOR AND PLAVIX AND THEY PRESCRIBED BRILINTA. HE STATES THE BRILINTA IS MORE EXPENSIVE THAN THE PLAVIX AND WOULD LIKE TO GOT BACK TO PLAVIX IF POSSIBLE. HE STATES HIS RASH HAS NOT CHANGED SINCE CHANGING THE MEDICATIONS. CURRENTLY HE IS ONLY TAKING THE BRILINTA BID, AND METOPROLOL TARTRATE 50MG DAILY WITH HIS OTC ASPIRIN AND FISH OIL.
[2018-07-04] MEDS ORDERED: LACTATED RINGERS 1,000 ML IV PRN (15:09)
[2018-07-04] MEDS ORDERED: HURRICAINE EXT TUBE (BENZOCAINE) ONE (15:58)
[2018-07-04] MEDS ORDERED: LACTATED RINGERS 1,000 ML IV ONE (15:58)
[2018-07-04] MEDS ORDERED: proPOfol 200 MG/20 ML (DIPRIVAN) VIAL IV ONE (16:01)
[2018-07-04] MEDS ORDERED: MIDAZOLAM 2 MG/2 ML (VERSED) VIAL ONE (16:01)
--- NOTE | 2018-07-04 16:07 | Consultation ---
History of Present Illness History of Present Illness Patient Consulted On(steven/time) 07/04/18 16:02 Date Seen by Provider: Jul 04, 2018 Time Seen by Provider: 16:02 Reason for Visit: chest pain History of Present Illness Consult requested by for gi bleed anemia Patient is a 63 year old male with recent cardiac stent. Began having worsening chest pain that radiated up to the neck from the chest . Been having some epigastric abdominal pain as well. States nothing really was making worse and nothing was really making it better. States that he has been having black stools that are tarry. He states they began about 5 days ago, but not has any the last 2 days. He was found to be severely anemic and required 2 units prbc. Feeling a little better today after transfusion. Denies n/v fever sweats chills shortness of breath or chest pain currently. Allergies and Home Medications Allergies Coded Allergies: NKANo Known Allergies (Unverified Allergy, Mild, 07/20/09) Home Medications Aspirin 81 Mg Tablet.dr, 81 MG PO DAILY, (Reported) Metoprolol Tartrate 50 Mg Tablet, 50 MG PO DAILY, (Reported) [place]in 3 Polyunsat Fatty Acids 1,000 Mg Cap, 1,000 MG PO BID, (Reported) Ticagrelor 90 Mg Tablet, 90 MG PO BID, (Reported) Patient Home Medication List Home Medication List Reviewed: Yes Past Iryxdah-Lgwpxg-Yjbutt Hx Patient Social History Alcohol Use: Denies Use Recreational Drug Use: Yes (HX OF ETOH) Smoking Status: Former Smoker Type Used: Cigarettes 2nd Hand Smoke Exposure: Yes Recent Foreign Travel: No Contact w/Someone Who Travel: No Recent Infectious Disease Expo: No Recent Hopitalizations: No Immunizations Up To Date Tetanus Booster (TDap): Unknown PED Vaccines UTD: Yes Date of Influenza Vaccine: Mar 04, 2011 Seasonal Allergies Seasonal Allergies: No Surgeries History of Surgeries: Yes Surgeries: Abdominal (Hernia repair), CABG, Coronary Stent Respiratory History of Respiratory Disorde: Yes Respiratory Disorders: Asthma, COPD Cardiovascular History of Cardiac Disorders: Yes Cardiac Disorders: Coronary Artery Disease, Heart Attack, High Cholesterol, Hypertension, Palpitations Neurological History of Neurological Disord: No Genitourinary History of Genitourinary Disor: Yes Genitourinary Disorders: Prostate Problems, Bladder Infection Gastrointestinal History of Gastrointestinal Di: No Musculoskeletal History of Musculoskeletal Dis: Yes Musculoskeletal Disorders: Arthritis Endocrine History of Endocrine Disorders: No 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) Cancer History of Cancer: No Psychosocial History of Psychiatric Problem: No Integumentary History of Skin or Integumenta: No Blood Transfusions History of Blood Disorders: No Family Medical History Significant Family History: CAD Under 55 Years Old, Hypertension Review of Systems-General Constitutional: see HPI EENTM: no symptoms reported Respiratory: no symptoms reported Cardiovascular: see HPI, chest pain Gastrointestinal: see HPI Genitourinary: no symptoms reported Musculoskeletal: no symptoms reported Skin: no symptoms reported Psychiatric/Neurological: No Symptoms Reported Physical Exam-General Problems Physical Exam Vital Signs Vital Signs - First Documented 07/03/18 21:47 Temp 97.8 Pulse 112 Resp 22 B/P (MAP) 183/91 (121) Pulse Ox 98 O2 Delivery Room Air Capillary Refill : Less Than 3 Seconds General Appearance: no apparent distress HEENT: normal ENT inspection, pharynx normal Neck: non-tender, supple, normal inspection Respiratory: chest non-tender, no respiratory distress, no accessory muscle use Cardiovascular: regular rate, rhythm Gastrointestinal: soft (incisional herni at umbilicus), tenderness (epigastric minimal) Rectal: deferred Back: no CVA tenderness, no vertebral tenderness Extremities: normal range of motion, normal inspection 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, no motor/sensory deficits, alert, normal mood/affect, oriented x 3 Skin: normal color, warm/dry Lymphatic: no adenopathy Data Review Labs Laboratory Tests 07/03/18 21:53: White Blood Count 15.4H, Red Blood Count 2.20L, Hemoglobin 6.7*L, Hematocrit 21L , Mean Corpuscular Volume 95, Mean Corpuscular Hemoglobin 30, Mean Corpuscular Hemoglobin Concent 32, Red Cell Distribution Width 15.1H, Platelet Count 287, Mean Platelet Volume 9.6, Neutrophils (%) (Auto) 62, Lymphocytes (%) (Auto) 25, Monocytes (%) (Auto) 7, Eosinophils (%) (Auto) 7, Basophils (%) (Auto) 0, Neutrophils # (Auto) 9.5H, Lymphocytes # (Auto) 3.8, Monocytes # (Auto) 1.1H, Eosinophils # (Auto) 1.1H, Basophils # (Auto) 0.0, Neutrophils % (Manual) 70, Lymphocytes % (Manual) 23, Monocytes % (Manual) 4, Eosinophils % (Manual) 2, Basophils % (Manual) 1, Band Neutrophils 0, Polychromasia SLIGHT, Hypochromasia MODERATE, Anisocytosis SLIGHT, Macrocytosis SLIGHT, Prothrombin Time 13.7, INR Comment 1.0, Activated Partial Thromboplast Time 33, Sodium Level 138, Potassium Level 4.0, Chloride Level 104, Carbon Dioxide Level 22, Anion Gap 12, Blood Urea Nitrogen 30H, Creatinine 1.53H, Estimat Glomerular Filtration Rate 46 , BUN/Creatinine Ratio 20, Glucose Level 360H, Calcium Level 9.9, Corrected Calcium 10.1, Magnesium Level 2.0, Total Bilirubin 0.3, Aspartate Amino Transf ( AST/SGOT) 13, Alanine Aminotransferase (ALT/SGPT) 24, Alkaline Phosphatase 69, Myoglobin 38.6, Troponin I < 0.028, Total Protein 6.7, Albumin 3.8, Lipase 71 07/03/18 22:12: Hemoglobin 5.6*L 07/03/18 22:55: Urine Color YELLOW, Urine Clarity CLEAR, Urine pH 5, Urine Specific [place] 1.015L, Urine Protein 1+H, Urine Glucose (UA) 4+H, Urine Ketones NEGATIVE, Urine Nitrite NEGATIVE, Urine Bilirubin NEGATIVE, Urine Urobilinogen NORMAL, Urine Leukocyte Esterase NEGATIVE, Urine RBC (Auto) NEGATIVE, Urine RBC NONE, Urine WBC RARE, Urine Crystals PRESENTH, Urine Calcium Oxalate Crystals RAREH, Urine Bacteria NEGATIVE, Urine Casts NONE, Urine Mucus NEGATIVE, Urine Culture Indicated NO 07/04/18 03:50: White Blood Count 11.9H, Red Blood Count 2.18L, Hemoglobin 6.5*L, Hematocrit 20* L, Mean Corpuscular Volume 92, Mean Corpuscular Hemoglobin 30, Mean Corpuscular Hemoglobin Concent 32, Red Cell Distribution Width 15.5H, Platelet Count 240, Mean Platelet Volume 9.8, Neutrophils (%) (Auto) 66, Lymphocytes (%) (Auto) 21, Monocytes (%) (Auto) 7, Eosinophils (%) (Auto) 5, Basophils (%) (Auto) 0, Neutrophils # (Auto) 7.9H, Lymphocytes # (Auto) 2.6, Monocytes # (Auto) 0.8, Eosinophils # (Auto) 0.6H, Basophils # (Auto) 0.0, Sodium Level 137, Potassium Level 3.9, Chloride Level 107, Carbon Dioxide Level 21, Anion Gap 9, Blood Urea Nitrogen 29H, Creatinine 1.28, Estimat Glomerular Filtration Rate 56, BUN/ Creatinine Ratio 23, Glucose Level 233H, Calcium Level 9.3, Corrected Calcium 9.9, Total Bilirubin 0.5, Aspartate Amino Transf (AST/SGOT) 12, Alanine Aminotransferase (ALT/SGPT) 21, Alkaline Phosphatase 61, Troponin I < 0.028, Total Protein 5.8L, Albumin 3.3, Triglycerides Level 116, Cholesterol Level 104 , LDL Cholesterol Direct 53, VLDL Cholesterol 23, HDL Cholesterol 28L 07/04/18 08:55: Hemoglobin 7.7L, Hematocrit 23L Assessment/Plan Assessment/Plan Assessment/Plan gi bleed likely upper CAD with recent stenting on Brilinta epigastric abdominal pain incisional hernia cholelithiasis At this point he is being transfuse prn for his anemia secondary to upper gi bleed most likely. Patient discussed risks and benefits of having EGD performed and wishes to proceed. He understands higher risk since on Brilinta and recent intervention. Patient to have EGD Today. Protonix Clinical Quality Measures AMI/AHF: ASA po Prior to arrival: Yes (81) DVT/VTE Risk/Contraindication: Risk Factor Score Per Nursin RFS Level Per Nursing on Admit: 4+=Very High BALBIR JENNINGS DO Jul 04, 2018 16:07
--- NOTE | 2018-07-04 16:35 | History & Physicial (CHS) ---
HPI History of Present Illness: 63 yo M that presented with chest pain and shortness of breath. Patient was found to have profound anemia. Patient recently had Cath with stent placement and was started on brillinta. Patient states that he has been short of breath for the last few days. Pain has resolved since starting on pRBCs. Patient states that he has had dark black stools for the last week. Denies any bright red blood. Denies any N/V. Source: patient Exam Limitations: no limitations Date seen by provider: Jul 04, 2018 Time Seen by Provider: 09:45 Attending Physician Ramiro Carl MD PCP [place] Consult Date of Admission Jul 03, 2018 at 22:56 Home Medications Home Medications Reviewed patient Home Medication Reconciliation performed by pharmacy medication reconciliations vehicle monitor technician and/or nursing. Patients Allergies have been reviewed. Allergies Coded Allergies: NKANo Known Allergies (Unverified Allergy, Mild, 07/20/09) JOI-Amowyl-Nduaba Hx Patient Social History Marrital Status: Alcohol Use: Denies Use Recreational Drug Use: Yes (HX OF ETOH) Smoking Status: Former Smoker Type Used: Cigarettes 2nd Hand Smoke Exposure: Yes Recent Foreign Travel: No Contact w/other who traveled: No Recent Hopitalizations: No Recent Infectious Disease Expo: No Immunizations Up To Date Tetanus Booster (TDap): Unknown Date of Influenza Vaccine: Mar 04, 2011 Past Medical History CAD with CABG x5 HTN HLD Tobacco abuse GI bleed requiring transfusion Family Medical History Significant Family History: CAD Under 55 Years Old, Hypertension Review of Systems (CHC) Constitutional: No chills, No dizziness, No fever; malaise, weakness EENTM: no symptoms reported; No blurred vision, No double vision Respiratory: No cough; dyspnea on exertion, short of breath Cardiovascular: chest pain; No edema, No palpitations Gastrointestinal: No abdominal pain, No hematemesis; loss of appetite, melena Genitourinary: no symptoms reported; No dysuria, No frequency, No hematuria Musculoskeletal: no symptoms reported; No back pain, No joint pain, No muscle pain Skin: no symptoms reported; No lesions, No rash Psychiatric/Neurological: No Symptoms Reported Reviewed Test Results Reviewed Test Results Lab Laboratory Tests Test 07/03/18 21:53 07/03/18 22:12 07/03/18 22:55 07/04/18 03:50 Range/Units White Blood Count 15.4 H 11.9 H 4.3-11.0 10^3/uL Red Blood Count 2.20 L 2.18 L 4.35-5.85 10^6/uL Hemoglobin 6.7 *L 5.6 *L 6.5 *L 13.3-17.7 G/DL Hematocrit 21 L 20 *L 40-54 % Mean Corpuscular Volume 95 92 80-99 FL Mean Corpuscular Hemoglobin 30 30 25-34 PG Mean Corpuscular Hemoglobin Concent 32 32 32-36 G/DL Red Cell Distribution Width 15.1 H 15.5 H 10.0-14.5 % Platelet Count 287 240 130-400 10^3/uL Mean Platelet Volume 9.6 9.8 7.4-10.4 FL Neutrophils (%) (Auto) 62 66 42-75 % Lymphocytes (%) (Auto) 25 21 12-44 % Monocytes (%) (Auto) 7 7 0-12 % Eosinophils (%) (Auto) 7 5 0-10 % Basophils (%) (Auto) 0 0 0-10 % Neutrophils # (Auto) 9.5 H 7.9 H 1.8-7.8 X 10^3 Lymphocytes # (Auto) 3.8 2.6 1.0-4.0 X 10^3 Monocytes # (Auto) 1.1 H 0.8 0.0-1.0 X 10^3 Eosinophils # (Auto) 1.1 H 0.6 H 0.0-0.3 10^3/uL Basophils # (Auto) 0.0 0.0 0.0-0.1 10^3/uL Neutrophils % (Manual) 70 % Lymphocytes % (Manual) 23 % Monocytes % (Manual) 4 % Eosinophils % (Manual) 2 % Basophils % (Manual) 1 % Band Neutrophils 0 % Polychromasia SLIGHT Hypochromasia MODERATE Anisocytosis SLIGHT Macrocytosis SLIGHT Prothrombin Time 13.7 12.2-14.7 SEC INR Comment 1.0 0.8-1.4 Activated Partial Thromboplast Time 33 24-35 SEC Sodium Level 138 137 135-145 MMOL/L Potassium Level 4.0 3.9 3.6-5.0 MMOL/L Chloride Level 104 107 98-107 MMOL/L Carbon Dioxide Level 22 21 21-32 MMOL/L Anion Gap 12 9 5-14 MMOL/L Blood Urea Nitrogen 30 H 29 H 7-18 MG/DL Creatinine 1.53 H 1.28 0.60-1.30 MG/DL Estimat Glomerular Filtration Rate 46 56 BUN/Creatinine Ratio 20 23 Glucose Level 360 H 233 H 70-105 MG/DL Calcium Level 9.9 9.3 8.5-10.1 MG/DL Corrected Calcium 10.1 9.9 8.5-10.1 MG/DL Magnesium Level 2.0 1.8-2.4 MG/DL Total Bilirubin 0.3 0.5 0.1-1.0 MG/DL Aspartate Amino Transf (AST/SGOT) 13 12 5-34 U/L Alanine Aminotransferase (ALT/SGPT) 24 21 0-55 U/L Alkaline Phosphatase 69 61 40-136 U/L Myoglobin 38.6 10.0-92.0 NG/ML Troponin I < 0.028 < 0.028 <0.028 NG/ML Total Protein 6.7 5.8 L 6.4-8.2 GM/DL Albumin 3.8 3.3 3.2-4.5 GM/DL Lipase 71 8-78 U/L Urine Color YELLOW Urine Clarity CLEAR Urine pH 5 5-9 Urine Specific [place] 1.015 L 1.016-1.022 Urine Protein 1+ H NEGATIVE Urine Glucose (UA) 4+ H NEGATIVE Urine Ketones NEGATIVE NEGATIVE Urine Nitrite NEGATIVE NEGATIVE Urine Bilirubin NEGATIVE NEGATIVE Urine Urobilinogen NORMAL NORMAL MG/DL Urine Leukocyte Esterase NEGATIVE NEGATIVE Urine RBC (Auto) NEGATIVE NEGATIVE Urine RBC NONE /HPF Urine WBC RARE /HPF Urine Crystals PRESENT H /LPF Urine Calcium Oxalate Crystals RARE H /LPF Urine Bacteria NEGATIVE /HPF Urine Casts NONE /LPF Urine Mucus NEGATIVE /LPF Urine Culture Indicated NO Triglycerides Level 116 <150 MG/DL Cholesterol Level 104 < 200 MG/DL LDL Cholesterol Direct 53 1-129 MG/DL VLDL Cholesterol 23 5-40 MG/DL HDL Cholesterol 28 L 40-60 MG/DL Test 07/04/18 08:55 Range/Units Hemoglobin 7.7 L 13.3-17.7 G/DL Hematocrit 23 L 40-54 % Physical Exam-(CHC) Physical Exam Vital Signs VS - Last 72 Hours, by Label 07/03/18 07/03/18 07/03/18 07/04/18 21:47 21:48 21:50 00:49 Temp 97.8 98.3 Pulse 112 77 Resp 22 20 B/P (MAP) 183/91 (121) 148/61 (90) Pulse Ox 98 97 O2 Delivery Room Air Room Air Room Air Room Air 07/04/18 07/04/18 07/04/18 07/04/18 00:53 00:55 01:00 01:00 Pulse 84 89 92 Resp 13 15 B/P (MAP) 159/112 (128) 128/85 (99) Pulse Ox 98 92 O2 Delivery Room Air Room Air Room Air 07/04/18 07/04/18 07/04/18 07/04/18 01:12 01:13 01:15 01:21 Temp 97.8 Pulse 86 81 87 92 Resp 19 19 24 B/P (MAP) 143/53 (83) 143/53 146/54 (84) Pulse Ox 98 97 92 O2 Delivery Room Air Room Air Room Air 07/04/18 07/04/18 07/04/18 07/04/18 01:28 01:28 01:30 01:56 Temp 98.1 Pulse 80 75 87 79 Resp 17 17 16 13 B/P (MAP) 115/52 115/52 (73) 136/64 (88) 132/59 (83) Pulse Ox 98 98 97 98 O2 Delivery Room Air Room Air Room Air Room Air 07/04/18 07/04/18 07/04/18 07/04/18 02:00 02:15 02:30 02:45 Pulse 78 71 85 80 Resp 15 12 13 14 B/P (MAP) 141/59 (86) 145/70 (95) 146/62 (90) 133/82 (99) Pulse Ox 98 99 97 100 O2 Delivery Room Air Room Air Room Air Room Air 07/04/18 07/04/18 07/04/18 07/04/18 03:00 03:29 03:54 04:00 Temp 98.2 98.2 Pulse 88 72 76 66 Resp 13 25 12 14 B/P (MAP) 131/51 (77) 126/62 144/73 154/70 (98) Pulse Ox 100 99 98 99 O2 Delivery Room Air Room Air Simple Mask Room Air 07/04/18 07/04/18 07/04/18 07/04/18 04:00 04:00 04:09 05:02 Temp 97.6 98.6 Pulse 75 67 Resp 24 15 B/P (MAP) 133/77 137/49 (78) Pulse Ox 99 99 98 O2 Delivery Room Air Room Air Room Air 07/04/18 07/04/18 07/04/18 07/04/18 06:00 06:38 07:00 07:00 Temp 98.2 Pulse 80 77 77 72 Resp 24 11 11 B/P (MAP) 134/67 (89) 139/65 117/65 (82) Pulse Ox 99 99 99 O2 Delivery Room Air Room Air Room Air 07/04/18 07/04/18 07/04/18 07/04/18 08:00 08:00 08:45 09:00 Temp 98.3 Pulse 73 70 Resp 12 B/P (MAP) 134/61 (85) Pulse Ox 92 98 99 O2 Delivery Room Air Room Air Room Air 07/04/18 07/04/18 07/04/18 07/04/18 10:00 11:00 12:00 12:00 Pulse 72 60 70 Resp 17 21 21 Pulse Ox 100 99 98 O2 Delivery Room Air Room Air Room Air Room Air 07/04/18 07/04/18 07/04/18 07/04/18 12:58 13:00 13:36 14:00 Pulse 75 60 69 Resp 14 28 Pulse Ox 100 100 O2 Delivery Room Air Room Air Room Air 07/04/18 07/04/18 15:00 16:00 Pulse 61 59 Resp 15 18 B/P (MAP) 118/65 (82) Pulse Ox 100 100 O2 Delivery Room Air Room Air Capillary Refill : Less Than 3 Seconds General Appearance: WD/WN, no apparent distress HEENT: PERRL/EOMI Neck: non-tender, full range of motion, normal inspection Respiratory: chest non-tender, lungs clear, normal breath sounds, no respiratory distress, no accessory muscle use Cardiovascular: normal peripheral pulses, regular rate, rhythm, no edema, no murmur Gastrointestinal: normal bowel sounds, non tender, soft, no organomegaly Back: no CVA tenderness, no vertebral tenderness Extremities: normal range of motion, non-tender, no pedal edema, no calf tenderness, normal capillary refill Neurologic/Psychiatric: philosophy and religion instructor II-XII nml as tested, no motor/sensory deficits, alert, normal mood/affect, oriented x 3 Skin: normal color, warm/dry Lymphatic: no adenopathy Assessment/Plan Assessment/Plan Admission Status: Inpatient Order (span 2 midnights) Reason for Inpatient Admission: Frequent vitals and requiring blood transfusion (1) GI bleeding Status: Acute Assessment & Plan: - Dr Real consulted and plan to EGD today, VS stable s/p 2 units pRBCs, continue to monitor vitals Qualifiers: Qualified Codes: K92.2 - Gastrointestinal hemorrhage, unspecified (2) Anemia due to acute blood loss Status: Acute (3) Chest pain Status: Acute Assessment & Plan: - Resolved since starting blood, likely some demand ischemia Qualifiers: Qualified Codes: R07.9 - Chest pain, unspecified (4) Coronary artery disease Status: Acute Assessment & Plan: - Recent stenting, Cardiology following given need for blood thinner in light of GI bleed Qualifiers: Qualified Codes: I25.810 - Atherosclerosis of coronary artery bypass graft(s ) without angina pectoris (5) HLD (hyperlipidemia) Status: Chronic Qualifiers: Qualified Codes: E78.2 - Mixed hyperlipidemia (6) Gallstones Status: Chronic Assessment & Plan: - Stable, Outpatient f.u (7) HTN (hypertension) Status: Chronic Assessment & Plan: - Hold BP meds given GI bleed Qualifiers: Qualified Codes: I10 - Essential (primary) hypertension (8) Tobacco abuse Status: Chronic Clinical Quality Measures AMI/AHF: ASA po Prior to arrival: Yes (81) DVT/VTE Risk/Contraindication: Risk Factor Score Per Nursin RFS Level Per Nursing on Admit: 4+=Very High Copy Copies To 1: RAMIRO MENA MD Jul 04, 2018 16:35
--- NOTE | 2018-07-04 16:36 | Progress Note-Post Operative ---
Post-Operative Progess Note Surgeon (s)/Early Childhood Lead Teacher (s) Surgeon BALBIR JENNINGS DO Early Childhood Lead Teacher: na Pre-Operative Diagnosis gi bleed upper Post-Operative Diagnosis duodenitis, gastritis, ulcer in cardia, hiatal hernia Procedure & Operative Findings Date of Procedure 07/04/18 Procedure Performed/Findings egd Anesthesia Type per ticket collector or usher Estimated Blood Loss Estimated blood loss (mL): na Specimens/Packing Specimens Removed na BALBIR JENNINGS DO Jul 04, 2018 16:36
[2018-07-04] MEDS ORDERED: HURRICAINE EXT TUBE (BENZOCAINE) XX ONE (16:45)
[2018-07-05] VITALS (29 sets, daily range): BP systolic 122–183; BP diastolic 46–83
[2018-07-05] MEDS: NS IV 1000 ML 1,000 ML IV SCH ×2 (01:30→07:27)
--- NOTE | 2018-07-05 03:19 | OPERATIVE REPORT ---
DATE OF SERVICE: 07/04/2018 PREOPERATIVE DIAGNOSIS: Gastrointestinal bleed, upper. POSTOPERATIVE DIAGNOSES: duodenitis, gastritis, ulcer in cardia, hiatal hernia. PROCEDURE: EGD. SURGEON: Balbir Real DO ANESTHESIA: Per KITCHEN AND COUNTER WORKER. ESTIMATED BLOOD LOSS: None. COMPLICATIONS: None. INDICATIONS: The patient is a 63-year-old male with recent cardiac stent on Brilinta. He presented to the hospital and was found to be anemic and having dark tarry stools recently. Suspect upper gastrointestinal bleed. The patient understands risks and benefits of procedure and wished to proceed with procedure. Consent was signed on the chart. DESCRIPTION OF PROCEDURE: The patient was taken to the endoscopy suite, placed in left lateral recumbent position. Timeout was performed. Scope was inserted in mouth, down the esophagus, stomach and into the duodenum without difficulty. Duodenum had inflammatory changes consistent with duodenitis through the first and second portion. There are no polyps, masses or ulcerations. Scope was slowly retracted back into the stomach where it was further insufflated. Some areas of inflammation present in the antrum consistent with gastritis. Scope was retroflexed noting a hiatal hernia. Up in the cardia, small ulceration present. No active bleeding. Scope was returned to its normal position, slowly withdrawn to the distal esophagus, which had normal appearance, no polyps, masses or ulcerations. The scope was slowly retracted back to completely remove, noting no other pathology. RECOMMENDATIONS: We will continue on Protonix 40 mg b.i.d. We will add Carafate 1 gram four times a day. Continue to follow hemoglobin and transfuse p.r.n. Job ID: [id number] DocumentID: [id number] Dictated Date: 07/04/2018 16:38:49 Perioperative Manager Date: 07/05/2018 03:18:50 Dictated By: BALBIR REAL DO [facility]
[2018-07-05 04:40] LABS: BASOPHILS % (AUTO) 0 % (0-10); EOSINOPHILS % (AUTO) 11 % (0-10); HEMATOCRIT 21 % (40-54); LYMPHOCYTES # (AUTO) 2.1 X 10^3 (1.0-4.0); LYMPHOCYTES % (AUTO) 24 % (12-44); MEAN CORPUSCULAR HEMOGLOBIN 30 PG (25-34); MEAN CORPUSCULAR HGB CONC 33 G/DL (32-36); MEAN CORPUSCULAR VOLUME 92 FL (80-99); MEAN PLATELET VOLUME 9.8 FL (7.4-10.4); MONOCYTES # (AUTO) 0.6 X 10^3 (0.0-1.0); MONOCYTES % (AUTO) 7 % (0-12); NEUTROPHILS # (AUTO) 5.1 X 10^3 (1.8-7.8); NEUTROPHILS % (AUTO) 58 % (42-75); PLATELET COUNT 251 10^3/uL (130-400); RED CELL DISTRIBUTION WIDTH 17.3 % (10.0-14.5); WHITE BLOOD COUNT 8.7 10^3/uL (4.3-11.0)
[2018-07-05 05:29] LABS: BUN/CREATININE RATIO 18; CALCIUM 8.4 MG/DL (8.5-10.1); CARBON DIOXIDE 19 MMOL/L (21-32); CHLORIDE 110 MMOL/L (98-107); CREATININE SERUM 1.09 MG/DL (0.60-1.30); GFR ESTIMATED > 60; GLUCOSE 133 MG/DL (70-105); POTASSIUM 4.2 MMOL/L (3.6-5.0); SODIUM 139 MMOL/L (135-145)
[2018-07-05] MEDS: SUCRALFATE 1 GM (CARAFATE) TAB PO SCH ×4 (08:14→20:23)
[2018-07-05] MEDS: PANTOPRAZOLE 40 MG (PROTONIX) VIAL IV SCH ×2 (08:15→20:23)
--- NOTE | 2018-07-05 10:43 | NUR ---
DR JENNINGS ON FLOOR EARLIER THIS AM ORDERS TO GIVE 2 UNITS OF BLOOD IF OK WITH DR MARTIN 1040 ORDERS TO GIVE [address] MARTIN
--- NOTE | 2018-07-05 10:44 | Cardiology Progress Note ---
Subjective Date Seen by Provider: Jul 05, 2018 Time Seen by Provider: 10:41 Subjective/Events-last exam Patient is sitting at edge of bed, denies any chest pain, dyspnea or lightheadedness. Objective-Cardiology Exam Last Set of Vital Signs Vital Signs 07/04/18 07/05/18 07/05/18 16:45 08:22 10:00 Temp 98.1 Pulse 79 Resp 20 B/P (MAP) 161/74 (103) Pulse Ox 93 O2 Delivery Room Air O2 Flow Rate 10 Capillary Refill : Less Than 3 Seconds I&O Intake and Output 07/05/18 00:00 Intake Total 1750 ml Output Total 1575 ml Balance 175 ml Intake Oral 250 ml IV Total 1500 ml Output Urine Total 1575 ml Daily Weight Change No General: Alert, Oriented X3, Cooperative HEENT: Atraumatic, PERRLA Neck: Supple, No JVD, No Thyromegaly Lungs: Clear to Auscultation, Normal Air Movement Heart: Regular Rate, Normal S1, Normal S2, No Murmurs Abdomen: Normal Bowel Sounds, Soft, No Tenderness, No Hepatosplenomegaly, No Masses Extremities: No Clubbing, No Cyanosis, No Edema, Normal Pulses, No Tenderness/ Swelling Skin: No Rashes, No Breakdown, No Significant Lesion Neuro: Normal Gait, Normal Speech, Strength at 5/5 X4 Ext, Normal Tone, Sensation Intact Psych/Mental Status: Mental Status NL, Mood NL Results Lab Laboratory Tests 07/05/18 03:20 A/P-Cardiology Admission Diagnosis GI bleed Anemia Coronary artery disease Unstable angina Assessment/Plan GI bleed, severe anemia, received blood transfusion. Underwent EGD with Dr. Real revealing gastritis and ulceration with no active bleeding, on protonix and carafate. Continue to transfuse as needed. Consider initiating aspirin and Plavix Unstable angina, atypical presentation, had some EKG changes. Continue to monitor Coronary artery disease history of CABG done in 2011, cardiac catheterization done on June 25, [address] Khan showing 80 percent distal left main, total occlusion of the ostium of the obtuse marginal with multiple lesions in the right coronary artery, severe stenosis in the proximal vein graft to the obtuse marginal underwent drug-eluting stent deployment using Sherri 2.5 x 18 mm with good results, patent vein graft to the OM1 and vein graft to D2, patent vein graft to right coronary artery PDA with ejection fraction 45-50 percent. Will need to be on aspirin and Plavix as soon as possible Hypertension, continue monitor blood pressure Hyperlipidemia, maintained on statin. Diabetes mellitus, followed and managed by primary care physician Tobaccoism, educated on avoiding tobacco products Clinical Quality Measures AMI/AHF: ASA po Prior to arrival: Yes (81) DVT/VTE Risk/Contraindication: Risk Factor Score Per Nursin RFS Level Per Nursing on Admit: 4+=Very High CELINA APARICIO Jul 05, 2018 10:44
--- NOTE | 2018-07-05 11:05 | Cardiology Progress Note ---
Subjective Date Seen by Provider: Jul 05, 2018 Time Seen by Provider: 11:03 Subjective/Events-last exam patient is in bed, denied any chest pain. No diarrhea, no abdominal pain, still dropping his hemoglobin Review of Systems General: No Chills, No Night Sweats, No Fatigue, No Malaise, No Appetite, No Other HEENT: No Head Aches, No Visual Changes, No Eye Pain, No Ear Pain, No Dysphasia , No Sinus Congestion, No Post Nasal Drip, No Sore Throat, No Other Pulmonary: Dyspnea; No Cough, No Pleuritic Chest Pain, No Other Cardiovascular: Chest Pain; No: Palpitations, Orthopnea, Paroxysmal Noc. Dyspnea, Edema, Lt Headedness, Other Objective-Cardiology Exam Last Set of Vital Signs Vital Signs 07/04/18 07/05/18 16:45 10:59 Temp 96.8 Pulse 70 Resp 21 B/P (MAP) 174/77 Pulse Ox 100 O2 Delivery Room Air O2 Flow Rate 10 Capillary Refill : Less Than 3 Seconds I&O Intake and Output 07/05/18 00:00 Intake Total 1750 ml Output Total 1575 ml Balance 175 ml Intake Oral 250 ml IV Total 1500 ml Output Urine Total 1575 ml Daily Weight Change No General: Alert, Oriented X3, Cooperative HEENT: Atraumatic, PERRLA Neck: Supple, No JVD, No Thyromegaly Lungs: Clear to Auscultation, Normal Air Movement Heart: Regular Rate, Normal S1, Normal S2, No Murmurs Abdomen: Normal Bowel Sounds, Soft, No Tenderness, No Hepatosplenomegaly, No Masses Extremities: No Clubbing, No Cyanosis, No Edema, Normal Pulses, No Tenderness/ Swelling Skin: No Rashes, No Breakdown, No Significant Lesion Neuro: Normal Gait, Normal Speech, Strength at 5/5 X4 Ext, Normal Tone, Sensation Intact Psych/Mental Status: Mental Status NL, Mood NL Results Lab Laboratory Tests 07/05/18 03:20 A/P-Cardiology Admission Diagnosis GI bleed Anemia Coronary artery disease Unstable angina Assessment/Plan GI bleed, severe anemia, received blood transfusion. Underwent EGD with Dr. Real revealing gastritis and ulceration with no active bleeding, on protonix and carafate. Continue to transfuse as needed. Consider initiating aspirin and Plavix, discussed with Dr. Carl, we will hold aspirin and Plavix for 1 more day and he will need to start on the medication as soon as possible Unstable angina, atypical presentation, had some EKG changes, no further episodes of chest pain. Continue to monitor Coronary artery disease history of CABG done in 2011, cardiac catheterization done on June 25, [address] Khan showing 80 percent distal left main, total occlusion of the ostium of the obtuse marginal with multiple lesions in the right coronary artery, severe stenosis in the proximal vein graft to the obtuse marginal underwent drug-eluting stent deployment using Sherri 2.5 x 18 mm with good results, patent vein graft to the OM1 and vein graft to D2, patent vein graft to right coronary artery PDA with ejection fraction 45-50 percent. Will need to be on aspirin and Plavix as soon as possible Hypertension, continue monitor blood pressure Hyperlipidemia, maintained on statin. Diabetes mellitus, followed and managed by primary care physician Carolyne, educated on avoiding tobacco products Clinical Quality Measures AMI/AHF: ASA po Prior to arrival: Yes (81) DVT/VTE Risk/Contraindication: Risk Factor Score Per Nursin RFS Level Per Nursing on Admit: 4+=Very High LIANA MARTIN MD Jul 05, 2018 11:05
--- NOTE | 2018-07-05 11:25 | Progress Note ---
Subjective Date Seen by a Provider: Jul 05, 2018 Time Seen by a Provider: 07:42 Subjective/Events-last exam Patient feeling better. TOlerating clears. Hgb drop to 7. No new complaints. Denies n/v fever sweats chills shortness of breath or chest pain. Objective Exam Vital Signs Date Time Temp Pulse Resp B/P (MAP) Pulse Ox O2 Delivery O2 Flow Rate FiO2 07/05/18 11:11 68 14 178/83 97 Room Air 07/05/18 11:00 74 17 174/77 (109) 96 Room Air 07/05/18 10:59 96.8 70 21 174/77 100 Room Air 07/05/18 10:00 79 20 161/74 (103) 93 Room Air 07/05/18 09:00 79 20 156/75 (102) 100 Room Air 07/05/18 08:37 Room Air 07/05/18 08:22 98.1 07/05/18 08:00 65 12 164/78 (106) 98 Room Air 07/05/18 07:25 98.5 07/05/18 07:00 60 10 153/69 (97) 97 Room Air 07/05/18 07:00 58 07/05/18 06:00 64 13 160/64 (96) 97 Room Air 07/05/18 05:00 56 22 145/57 (86) 95 Room Air 07/05/18 04:00 64 20 137/50 (79) 96 Room Air 07/05/18 04:00 Room Air 07/05/18 03:49 61 07/05/18 03:00 63 17 122/52 (75) 94 Room Air 07/05/18 02:00 70 19 154/68 (96) 96 Room Air 07/05/18 01:00 59 20 160/72 (101) 96 Room Air 07/05/18 00:00 70 26 128/60 (82) 94 Room Air 07/05/18 00:00 Room Air 07/05/18 00:00 98.3 07/04/18 22:00 60 21 130/64 (86) 95 Room Air 07/04/18 21:00 74 16 159/90 (113) 95 Room Air 07/04/18 20:00 98.1 07/04/18 20:00 65 16 171/76 (107) 95 Room Air 07/04/18 20:00 Room Air 07/04/18 19:00 58 18 159/70 (99) 95 Room Air 07/04/18 19:00 69 07/04/18 18:00 84 24 133/56 (81) 95 Room Air 07/04/18 17:00 56 10 140/76 (97) 100 Room Air 07/04/18 16:50 64 18 98 Room Air 07/04/18 16:45 69 18 100 OxyMask 10 07/04/18 16:40 66 18 100 OxyMask 10 07/04/18 16:30 72 16 100 OxyMask 10 07/04/18 16:00 Room Air 07/04/18 16:00 59 18 100 Room Air 07/04/18 15:00 61 15 118/65 (82) 100 Room Air 07/04/18 14:00 69 28 100 Room Air 07/04/18 13:36 Room Air 07/04/18 13:00 60 14 100 Room Air 07/04/18 12:58 75 07/04/18 12:00 70 21 98 Room Air 07/04/18 12:00 Room Air I & O 07/05/18 06:59 Intake Total 2300 ml Output Total 2250 ml Balance 50 ml Capillary Refill : Less Than 3 Seconds General Appearance: No Apparent Distress, WD/WN HEENT: PERRL/EOMI, TMs Normal, Normal ENT Inspection, Pharynx Normal Neck: Full Range of Motion, Normal Inspection, Non Tender, Supple, Carotid Bruit Respiratory: Chest Non Tender, Lungs Clear, Normal Breath Sounds, No Accessory Muscle Use, No Respiratory Distress Cardiovascular: Regular Rate, Rhythm, No JVD, Normal Peripheral Pulses Gastrointestinal: normal bowel sounds, non tender, soft, no organomegaly Extremity: Normal Capillary Refill, Normal Inspection, Normal Range of Motion, Non Tender, No Calf Tenderness, No Pedal Edema Neurologic/Psychiatric: Alert, Oriented x3, No Motor/Sensory Deficits, Normal Mood/Affect Skin: Normal Color, Warm/Dry Lymphatic: No Adenopathy Results Lab Laboratory Tests 07/04/18 17:23: Glucometer 177H 07/05/18 03:20: White Blood Count 8.7, Red Blood Count 2.32L, Hemoglobin 7.0L, Hematocrit 21L, Mean Corpuscular Volume 92, Mean Corpuscular Hemoglobin 30, Mean Corpuscular Hemoglobin Concent 33, Red Cell Distribution Width 17.3H, Platelet Count 251, Mean Platelet Volume 9.8, Neutrophils (%) (Auto) 58, Lymphocytes (%) (Auto) 24, Monocytes (%) (Auto) 7, Eosinophils (%) (Auto) 11H, Basophils (%) (Auto) 0, Neutrophils # (Auto) 5.1, Lymphocytes # (Auto) 2.1, Monocytes # (Auto) 0.6, Eosinophils # (Auto) 1.0H, Basophils # (Auto) 0.0, Sodium Level 139, Potassium Level 4.2, Chloride Level 110H, Carbon Dioxide Level 19L, Anion Gap 10, Blood Urea Nitrogen 20H, Creatinine 1.09, Estimat Glomerular Filtration Rate > 60, BUN /Creatinine Ratio 18, Glucose Level 133H, Calcium Level 8.4L Assessment/Plan Assessment/Plan Assessment/Plan gi bleed likely upper duodenitis and small ulcer in cardia no active bleeding CAD with recent stenting on Brilinta epigastric abdominal pain incisional hernia cholelithiasis anemia add carafate discuss with Dr. Gretta lind transfuse 2 units prbc follow labs Clinical Quality Measures AMI/AHF: ASA po Prior to arrival: Yes (81) DVT/VTE Risk/Contraindication: Risk Factor Score Per Nursin RFS Level Per Nursing on Admit: 4+=Very High BALBIR JENNINGS DO Jul 05, 2018 11:25
--- NOTE | 2018-07-05 12:44 | NUR ---
PT'S BLOOD PRESSURE NOTED TO BE 183 SYSTOLIC WITH DIASTOLIC NOTED AT 74 DR MARTIN NOTIFIED AND NEW ORDERS RECEIVED TO GIVE A ONE TIME DOSE OF LOPRESSOR 5MG IV. ORDERS READ BACK AND ENTERED.
[2018-07-05] MEDS ORDERED: meTOprolol 5 MG/5 ML (LOPRESSOR) VIAL IV NR (12:45)
--- NOTE | 2018-07-05 15:36 | NUR ---
Pt resting with eyes closed at this time.
--- NOTE | 2018-07-05 16:09 | Progress Note (SOAP) ---
Subjective Subjective/Events-last exam Patient states that he is feeling ok this AM. Still feels weak. Denies any chest pain or shortness of breath. Denies any blood in stool. Review of Systems Date Seen by Provider: Jul 05, 2018 Time Seen by Provider: 09:55 Pulmonary: No Dyspnea Cardiovascular: No: Chest Pain, Palpitations Gastrointestinal: No: Nausea, Vomiting, Abdominal Pain, Melena, Hematochezia Neurological: Weakness Objective Exam Last Set of Vital Signs Vital Signs Date Time Temp Pulse Resp B/P (MAP) Pulse Ox O2 Delivery O2 Flow Rate FiO2 07/05/18 15:55 97.7 68 166/82 07/05/18 14:00 24 100 Room Air 07/04/18 16:45 10 Capillary Refill : Less Than 3 Seconds I&O Intake and Output 07/05/18 00:00 Intake Total 1750 ml Output Total 1575 ml Balance 175 ml Intake Oral 250 ml IV Total 1500 ml Output Urine Total 1575 ml Daily Weight Change No General: Alert, Oriented X3, Cooperative, No Acute Distress HEENT: Mucous Memb Moist/Medicine Bow Lungs: Clear to Auscultation, Normal Air Movement Heart: Regular Rate, No Murmurs Abdomen: Normal Bowel Sounds, Soft, No Tenderness, No Masses, Other (umbilical hernia present, non tender, reducible) Extremities: No Edema Neuro: Normal Speech, Strength at 5/5 X4 Ext Results/Procedures Lab Laboratory Tests 07/04/18 17:23: Glucometer 177H 07/05/18 03:20: White Blood Count 8.7, Red Blood Count 2.32L, Hemoglobin 7.0L, Hematocrit 21L, Mean Corpuscular Volume 92, Mean Corpuscular Hemoglobin 30, Mean Corpuscular Hemoglobin Concent 33, Red Cell Distribution Width 17.3H, Platelet Count 251, Mean Platelet Volume 9.8, Neutrophils (%) (Auto) 58, Lymphocytes (%) (Auto) 24, Monocytes (%) (Auto) 7, Eosinophils (%) (Auto) 11H, Basophils (%) (Auto) 0, Neutrophils # (Auto) 5.1, Lymphocytes # (Auto) 2.1, Monocytes # (Auto) 0.6, Eosinophils # (Auto) 1.0H, Basophils # (Auto) 0.0, Sodium Level 139, Potassium Level 4.2, Chloride Level 110H, Carbon Dioxide Level 19L, Anion Gap 10, Blood Urea Nitrogen 20H, Creatinine 1.09, Estimat Glomerular Filtration Rate > 60, BUN /Creatinine Ratio 18, Glucose Level 133H, Calcium Level 8.4L 07/05/18 15:51: Glucometer 139H Microbiology 07/04/18 MRSA Screen - Final, Complete MRSA not isolated Assessment/Plan Assessment/Plan (1) GI bleeding Status: Acute Assessment & Plan: - Dr Real consulted and plan to EGD today, VS stable s/p 2 units pRBCs, continue to monitor vitals 07/05: non bleeding ulcer seen, started on IV protonix and carafate, getting blood this AM Qualifiers: Qualified Codes: K92.2 - Gastrointestinal hemorrhage, unspecified (2) Anemia due to acute blood loss Status: Acute (3) Chest pain Status: Resolved Assessment & Plan: - Resolved since starting blood, likely some demand ischemia Qualifiers: Qualified Codes: R07.9 - Chest pain, unspecified (4) Coronary artery disease Status: Acute Assessment & Plan: - Recent stenting, Cardiology following given need for blood thinner in light of GI bleed 07/05: Will restart ASA/Plavix in AM and continue to monitor patient Qualifiers: Qualified Codes: I25.810 - Atherosclerosis of coronary artery bypass graft(s ) without angina pectoris (5) HLD (hyperlipidemia) Status: Chronic Qualifiers: Qualified Codes: E78.2 - Mixed hyperlipidemia (6) Gallstones Status: Chronic Assessment & Plan: - Stable, Outpatient f.u (7) HTN (hypertension) Status: Chronic Assessment & Plan: - Hold BP meds given GI bleed 07/05: Restart meds, d/c fluids today Qualifiers: Qualified Codes: I10 - Essential (primary) hypertension (8) Tobacco abuse Status: Chronic Clinical Quality Measures AMI/AHF: ASA po Prior to arrival: Yes (81) DVT/VTE Risk/Contraindication: Risk Factor Score Per Nursin RFS Level Per Nursing on Admit: 4+=Very High RAMIRO TRUONG MD Jul 05, 2018 16:09
[2018-07-05 20:48] LABS: HEMOGLOBIN 9.2 G/DL (13.3-17.7)
[2018-07-06] VITALS (15 sets, daily range): BP systolic 138–189; BP diastolic 56–99
[2018-07-06 03:53] LABS: BASOPHILS % (AUTO) 0 % (0-10); EOSINOPHILS % (AUTO) 11 % (0-10); HEMATOCRIT 29 % (40-54); HEMOGLOBIN 9.6 G/DL (13.3-17.7); LYMPHOCYTES # (AUTO) 2.7 X 10^3 (1.0-4.0); LYMPHOCYTES % (AUTO) 29 % (12-44); MEAN CORPUSCULAR HEMOGLOBIN 30 PG (25-34); MEAN CORPUSCULAR HGB CONC 34 G/DL (32-36); MEAN CORPUSCULAR VOLUME 90 FL (80-99); MEAN PLATELET VOLUME 9.6 FL (7.4-10.4); MONOCYTES # (AUTO) 0.6 X 10^3 (0.0-1.0); MONOCYTES % (AUTO) 7 % (0-12); NEUTROPHILS # (AUTO) 4.8 X 10^3 (1.8-7.8); NEUTROPHILS % (AUTO) 52 % (42-75); PLATELET COUNT 253 10^3/uL (130-400); RED CELL DISTRIBUTION WIDTH 16.5 % (10.0-14.5); WHITE BLOOD COUNT 9.2 10^3/uL (4.3-11.0)
[2018-07-06 04:15] LABS: ALANINE AMINOTRANSFERASE 13 U/L (0-55); ALBUMIN 3.3 GM/DL (3.2-4.5); ALKALINE PHOSPHATASE 66 U/L (40-136); BILIRUBIN,TOTAL 0.8 MG/DL (0.1-1.0); BUN/CREATININE RATIO 16; CARBON DIOXIDE 21 MMOL/L (21-32); CHLORIDE 108 MMOL/L (98-107); CREATININE SERUM 1.05 MG/DL (0.60-1.30); GFR ESTIMATED > 60; GLUCOSE 152 MG/DL (70-105); POTASSIUM 3.8 MMOL/L (3.6-5.0); SODIUM 140 MMOL/L (135-145); TOTAL PROTEIN 5.8 GM/DL (6.4-8.2)
[2018-07-06] MEDS: SUCRALFATE 1 GM (CARAFATE) TAB PO SCH ×4 (06:21→20:00)
[2018-07-06] MEDS: meTOprolol TARTRATE 50 MG (LOPRESSOR) TAB PO SCH (08:36)
[2018-07-06] MEDS: PANTOPRAZOLE 40 MG (PROTONIX) VIAL IV SCH ×2 (08:37→20:00)
[2018-07-06] MEDS: ASPIRIN E.C. 81 MG (ECOTRIN) TAB PO SCH (08:37)
[2018-07-06] MEDS: CLOPIDOGREL 75 MG (PLAVIX) TABLET PO SCH (08:37)
--- NOTE | 2018-07-06 11:24 | NUR ---
REPORT RECEIVED FROM [employer]IM[employer] AND [employer] MACHINE OPERATOR.
--- NOTE | 2018-07-06 11:34 | Cardiology Progress Note ---
Cardiology SOAP Progress Note Subjective: No chest pain. Objective: I&O/Vital Signs 07/06/18 07/06/18 07/06/18 07/06/18 05:00 06:00 07:00 07:00 Pulse 49 56 73 65 Resp 19 16 20 B/P (MAP) 161/71 (101) 138/56 (83) 189/83 (118) Pulse Ox 92 89 89 O2 Delivery Room Air Room Air Room Air 07/06/18 07/06/18 07/06/18 07/06/18 08:00 08:00 09:00 09:00 Temp 98.4 Pulse 65 66 Resp 24 12 B/P (MAP) 161/79 (106) 169/72 (104) Pulse Ox 96 98 O2 Delivery Room Air Room Air Room Air 07/06/18 07/06/18 07/06/18 10:00 11:00 12:00 Temp 98.4 Pulse 56 58 55 Resp 16 17 18 B/P (MAP) 165/72 (103) 147/69 (95) 169/74 (105) Pulse Ox 98 100 100 O2 Delivery Room Air Room Air Room Air 07/06/18 00:00 Intake Total 1830 ml Output Total 2550 ml Balance -720 ml Weight (Pounds): 203 Weight (Ounces): 1.0 Weight (Calculated Kilograms): 92.400134 Constitutional: No appears stated age; AAO x 3; No apparent distress, No PERRL , No well-developed, No well-nourished, No other Respiratory: No accessory muscle use, No respiratory distress, No chest tender , No chest expansion is symmetric; chest is bilaterally symmetric; No lungs clear to percussion; lungs clear to auscultation; No crackles, No rhonchi, No rales, No stridor, No wheezing, No pleural rub, No other Cardiovascular: regular rate-rhythm; No irregularly irregular, No extra beats, No parasternal heave is noted, No JVD, No edema, No bradycardia, No tachycardia , No point of maximal impulse, No cardiac thrills are palpable; S1 and S2; No gallop/S3, No gallop/S4, No diastolic murmur, No systolic murmur, No friction rub, No click, No other Gastrointestional: No tender, No soft, No round, No distended, No pulsatile mass, No organomegaly, No guarding, No rebound, No tenderness, No hernia, No mass, No audible bowel sounds, No abnormal bowel sounds, No abdominal bruits, No spleenomegaly, No other Extremities: No normal range of motion, No non-tender, No normal inspection, No pedal edema, No calf tenderness, No normal capillary refill, No pelvis stable , No calf tenderness, No inflammation, No pedal edema, No slow capillary refill , No swelling, No other, No abrasion, No clubbing, No cyanosis, No ecchymosis, No laceration, No no lower extremity edema bilateral, No significant edema, No tenderness, No wound Neurologic/Psychiatric: no motor/sensory deficits, alert, normal mood/affect, oriented x 3 Skin: No normal color, No warm/dry, No cyanosis, No cool, No diaphoresis, No damp, No ecchymosis, No jaundice, No mottled, No pallor, No rash, No tattoos/ piercings, No ulcerations, No rash on exposed areas, No ulcerations on exposed areas, No other Results/Procedures: Labs Laboratory Tests 07/05/18 20:40: Hemoglobin 9.2#L, Hematocrit 27L 07/06/18 03:20: Hemoglobin 9.6L, Hematocrit 29L, White Blood Count 9.2, Red Blood Count 3.17L, Mean Corpuscular Volume 90, Mean Corpuscular Hemoglobin 30, Mean Corpuscular Hemoglobin Concent 34, Red Cell Distribution Width 16.5H, Platelet Count 253, Mean Platelet Volume 9.6, Neutrophils (%) (Auto) 52, Lymphocytes (%) (Auto) 29, Monocytes (%) (Auto) 7, Eosinophils (%) (Auto) 11H, Basophils (%) (Auto) 0, Neutrophils # (Auto) 4.8, Lymphocytes # (Auto) 2.7, Monocytes # (Auto) 0.6, Eosinophils # (Auto) 1.0H, Basophils # (Auto) 0.0, Sodium Level 140, Potassium Level 3.8, Chloride Level 108H, Carbon Dioxide Level 21, Anion Gap 11, Blood Urea Nitrogen 17, Creatinine 1.05, Estimat Glomerular Filtration Rate > 60, BUN/ Creatinine Ratio 16, Glucose Level 152H, Calcium Level 9.0, Corrected Calcium 9.6, Total Bilirubin 0.8, Aspartate Amino Transf (AST/SGOT) 11, Alanine Aminotransferase (ALT/SGPT) 13, Alkaline Phosphatase 66, Total Protein 5.8L, Albumin 3.3 07/06/18 11:17: Lab Scanned Report Transfusion Reaction Form Microbiology 07/04/18 MRSA Screen - Final, Complete MRSA not isolated A/P: Assessment/Dx: GI bleed Anemia Coronary artery disease Unstable angina Plan: GI bleed, severe anemia, received blood transfusion. Underwent EGD with Dr. Real revealing gastritis and ulceration with no active bleeding, on protonix and carafate. Continue to transfuse as needed. Consider initiating aspirin and Plavix, discussed with Dr. Carl, we will hold aspirin and Plavix for 1 more day and he will need to start on the medication as soon as possible Unstable angina, atypical presentation, had some EKG changes, no further episodes of chest pain. Continue to monitor Coronary artery disease history of CABG done in 2011, cardiac catheterization done on June 25, [address] Khan showing 80 percent distal left main, total occlusion of the ostium of the obtuse marginal with multiple lesions in the right coronary artery, severe stenosis in the proximal vein graft to the obtuse marginal underwent drug-eluting stent deployment using Sherri 2.5 x 18 mm with good results, patent vein graft to the OM1 and vein graft to D2, patent vein graft to right coronary artery PDA with ejection fraction 45-50 percent. Will need to be on aspirin and Plavix as soon as possible Hypertension, continue monitor blood pressure Hyperlipidemia, maintained on statin. Diabetes mellitus, followed and managed by primary care physician Tobaccobambi, educated on avoiding tobacco products Thank you for your consultation. Please call me if you have any questions. Musa Keene MD, FACP, FACC, FSCAI, FHRS, CCDS Interventional Cardiology Cardiac Electrophysiology Vascular Medicine and Endovascular Interventions Clinical Quality Measures AMI/AHF: ASA po Prior to arrival: Yes (81) Pankaj KEENE MD Jul 06, 2018 11:34
--- NOTE | 2018-07-06 20:10 | Progress Note ---
Subjective Date Seen by a Provider: Jul 06, 2018 Time Seen by a Provider: 16:23 Subjective/Events-last exam Patient hungry. Patient transferred to the floor. His hemoglobin responded to blood transfusion appropriately. Patient denies any nausea vomiting fever sweats chills shortness of breath or chest pain. Objective Exam Vital Signs Date Time Temp Pulse Resp B/P (MAP) Pulse Ox O2 Delivery O2 Flow Rate FiO2 07/06/18 15:46 96.6 76 18 152/75 (100) 95 Room Air 07/06/18 12:00 98.4 55 18 169/74 (105) 100 Room Air 07/06/18 11:00 58 17 147/69 (95) 100 Room Air 07/06/18 10:00 56 16 165/72 (103) 98 Room Air 07/06/18 09:00 98.4 07/06/18 09:00 66 12 169/72 (104) 98 Room Air 07/06/18 08:00 Room Air 07/06/18 08:00 65 24 161/79 (106) 96 Room Air 07/06/18 07:00 65 07/06/18 07:00 73 20 189/83 (118) 89 Room Air 07/06/18 06:00 56 16 138/56 (83) 89 Room Air 07/06/18 05:00 49 19 161/71 (101) 92 Room Air 07/06/18 04:00 Room Air 07/06/18 04:00 55 13 166/74 (104) 90 Room Air 07/06/18 03:00 58 18 171/76 (107) 95 Room Air 07/06/18 02:00 55 10 143/72 (95) 92 Room Air 07/06/18 01:00 59 07/06/18 01:00 59 13 171/75 (107) 95 Room Air 07/06/18 00:00 Room Air 07/06/18 00:00 75 16 174/99 (124) 95 Room Air 07/06/18 00:00 99.0 07/05/18 23:00 63 20 142/71 (94) 94 Room Air 07/05/18 22:00 62 15 159/64 (95) 99 Room Air 07/05/18 21:00 63 24 173/80 (111) 98 Room Air I & O 07/06/18 07:00 Intake Total 2390 ml Output Total 4250 ml Balance -1860 ml Capillary Refill : Less Than 3 Seconds General Appearance: No Apparent Distress, WD/WN HEENT: PERRL/EOMI, TMs Normal, Normal ENT Inspection, Pharynx Normal Neck: Full Range of Motion, Normal Inspection, Non Tender, Supple Respiratory: Chest Non Tender, No Accessory Muscle Use, No Respiratory Distress Cardiovascular: Regular Rate, Rhythm, No JVD, Normal Peripheral Pulses Gastrointestinal: normal bowel sounds, non tender, soft, no organomegaly Extremity: Normal Capillary Refill, Normal Inspection, Normal Range of Motion, Non Tender, No Calf Tenderness, No Pedal Edema Neurologic/Psychiatric: Alert, Oriented x3, No Motor/Sensory Deficits, Normal Mood/Affect Skin: Normal Color, Warm/Dry Lymphatic: No Adenopathy Results Lab Laboratory Tests 07/05/18 20:40: Hemoglobin 9.2#L, Hematocrit 27L 07/06/18 03:20: Hemoglobin 9.6L, Hematocrit 29L, White Blood Count 9.2, Red Blood Count 3.17L, Mean Corpuscular Volume 90, Mean Corpuscular Hemoglobin 30, Mean Corpuscular Hemoglobin Concent 34, Red Cell Distribution Width 16.5H, Platelet Count 253, Mean Platelet Volume 9.6, Neutrophils (%) (Auto) 52, Lymphocytes (%) (Auto) 29, Monocytes (%) (Auto) 7, Eosinophils (%) (Auto) 11H, Basophils (%) (Auto) 0, Neutrophils # (Auto) 4.8, Lymphocytes # (Auto) 2.7, Monocytes # (Auto) 0.6, Eosinophils # (Auto) 1.0H, Basophils # (Auto) 0.0, Sodium Level 140, Potassium Level 3.8, Chloride Level 108H, Carbon Dioxide Level 21, Anion Gap 11, Blood Urea Nitrogen 17, Creatinine 1.05, Estimat Glomerular Filtration Rate > 60, BUN/ Creatinine Ratio 16, Glucose Level 152H, Calcium Level 9.0, Corrected Calcium 9.6, Total Bilirubin 0.8, Aspartate Amino Transf (AST/SGOT) 11, Alanine Aminotransferase (ALT/SGPT) 13, Alkaline Phosphatase 66, Total Protein 5.8L, Albumin 3.3 07/06/18 11:17: Lab Scanned Report Transfusion Reaction Form Microbiology 07/04/18 MRSA Screen - Final, Complete MRSA not isolated Assessment/Plan Assessment/Plan Assessment/Plan gi bleed likely upper duodenitis and small ulcer in cardia no active bleeding CAD with recent stenting on Plavix/aspirin epigastric abdominal pain incisional hernia cholelithiasis anemia Protonic/ carafate follow labs Advanced a dysphagia 2 diet Clinical Quality Measures AMI/AHF: ASA po Prior to arrival: Yes (81) DVT/VTE Risk/Contraindication: Risk Factor Score Per Nursin RFS Level Per Nursing on Admit: 4+=Very High BALBIR JENNINGS DO Jul 06, 2018 20:10
--- NOTE | 2018-07-06 21:31 | Progress Note (SOAP) ---
Subjective Subjective/Events-last exam Patient doing well this AM. No chest pain or shortness of breath. Hungry. Tolerating ambulation Review of Systems Date Seen by Provider: Jul 06, 2018 Time Seen by Provider: 10:25 Pulmonary: Dyspnea; No Cough Cardiovascular: No: Chest Pain, Palpitations Gastrointestinal: No: Nausea, Vomiting, Abdominal Pain Neurological: Weakness Objective Exam Last Set of Vital Signs Vital Signs Date Time Temp Pulse Resp B/P (MAP) Pulse Ox O2 Delivery O2 Flow Rate FiO2 07/06/18 19:35 97.2 83 20 146/74 (98) 97 Room Air 07/04/18 16:45 10 Capillary Refill : Less Than 3 Seconds I&O Intake and Output 07/06/18 00:00 Intake Total 2740 ml Output Total 4300 ml Balance -1560 ml Intake Oral 2140 ml IV Total 600 ml Output Urine Total 4300 ml General: Alert, Oriented X3, Cooperative, No Acute Distress Lungs: Clear to Auscultation, Normal Air Movement Heart: Regular Rate, No Murmurs Abdomen: Normal Bowel Sounds, Soft, No Tenderness, No Hepatosplenomegaly, No Masses Extremities: No Edema, No Tenderness/Swelling Results/Procedures Lab Laboratory Tests 07/06/18 03:20: White Blood Count 9.2, Red Blood Count 3.17L, Hemoglobin 9.6L, Hematocrit 29L, Mean Corpuscular Volume 90, Mean Corpuscular Hemoglobin 30, Mean Corpuscular Hemoglobin Concent 34, Red Cell Distribution Width 16.5H, Platelet Count 253, Mean Platelet Volume 9.6, Neutrophils (%) (Auto) 52, Lymphocytes (%) (Auto) 29, Monocytes (%) (Auto) 7, Eosinophils (%) (Auto) 11H, Basophils (%) (Auto) 0, Neutrophils # (Auto) 4.8, Lymphocytes # (Auto) 2.7, Monocytes # (Auto) 0.6, Eosinophils # (Auto) 1.0H, Basophils # (Auto) 0.0, Sodium Level 140, Potassium Level 3.8, Chloride Level 108H, Carbon Dioxide Level 21, Anion Gap 11, Blood Urea Nitrogen 17, Creatinine 1.05, Estimat Glomerular Filtration Rate > 60, BUN/ Creatinine Ratio 16, Glucose Level 152H, Calcium Level 9.0, Corrected Calcium 9.6, Total Bilirubin 0.8, Aspartate Amino Transf (AST/SGOT) 11, Alanine Aminotransferase (ALT/SGPT) 13, Alkaline Phosphatase 66, Total Protein 5.8L, Albumin 3.3 07/06/18 11:17: Lab Scanned Report Transfusion Reaction Form Microbiology 07/04/18 MRSA Screen - Final, Complete MRSA not isolated Assessment/Plan Assessment/Plan (1) GI bleeding Status: Acute Assessment & Plan: - Dr Real consulted and plan to EGD today, VS stable s/p 2 units pRBCs, continue to monitor vitals 07/05: non bleeding ulcer seen, started on IV protonix and carafate, getting blood this AM 07/06: defer to surgery about advancing diet, ok to transfer to floor and continue to monitor hgb while on ASA and Plavix, possible d/c tomorrow or sat as long as hgb stays stable Qualifiers: Qualified Codes: K92.2 - Gastrointestinal hemorrhage, unspecified (2) Anemia due to acute blood loss Status: Acute (3) Chest pain Status: Resolved Assessment & Plan: - Resolved since starting blood, likely some demand ischemia Qualifiers: Qualified Codes: R07.9 - Chest pain, unspecified (4) Coronary artery disease Status: Acute Assessment & Plan: - Recent stenting, Cardiology following given need for blood thinner in light of GI bleed 07/05: Will restart ASA/Plavix in AM and continue to monitor patient Qualifiers: Qualified Codes: I25.810 - Atherosclerosis of coronary artery bypass graft(s ) without angina pectoris (5) HLD (hyperlipidemia) Status: Chronic Qualifiers: Qualified Codes: E78.2 - Mixed hyperlipidemia (6) Gallstones Status: Chronic Assessment & Plan: - Stable, Outpatient f.u (7) HTN (hypertension) Status: Chronic Assessment & Plan: - Hold BP meds given GI bleed 07/05: Restart meds, d/c fluids today Qualifiers: Qualified Codes: I10 - Essential (primary) hypertension (8) Tobacco abuse Status: Chronic Clinical Quality Measures AMI/AHF: ASA po Prior to arrival: Yes (81) DVT/VTE Risk/Contraindication: Risk Factor Score Per Nursin RFS Level Per Nursing on Admit: 4+=Very High RAMIRO TRUONG MD Jul 06, 2018 21:31
[2018-07-07 00:01] VITALS: BP 136/68
[2018-07-07 04:43] LABS: BASOPHILS % (AUTO) 0 % (0-10); EOSINOPHILS % (AUTO) 13 % (0-10); HEMATOCRIT 28 % (40-54); HEMOGLOBIN 9.1 G/DL (13.3-17.7); LYMPHOCYTES # (AUTO) 1.6 X 10^3 (1.0-4.0); LYMPHOCYTES % (AUTO) 20 % (12-44); MEAN CORPUSCULAR HEMOGLOBIN 30 PG (25-34); MEAN CORPUSCULAR HGB CONC 33 G/DL (32-36); MEAN CORPUSCULAR VOLUME 91 FL (80-99); MEAN PLATELET VOLUME 9.5 FL (7.4-10.4); MONOCYTES # (AUTO) 0.6 X 10^3 (0.0-1.0); MONOCYTES % (AUTO) 8 % (0-12); NEUTROPHILS # (AUTO) 4.6 X 10^3 (1.8-7.8); NEUTROPHILS % (AUTO) 59 % (42-75); PLATELET COUNT 247 10^3/uL (130-400); RED CELL DISTRIBUTION WIDTH 16.4 % (10.0-14.5); WHITE BLOOD COUNT 7.7 10^3/uL (4.3-11.0)
[2018-07-07 05:10] LABS: ANISOCYTOSIS SLIGHT; EOSINOPHILS % (MANUAL) 14 %; LYMPHOCYTES % (MANUAL) 19 %; MICROCYTOSIS SLIGHT; MONOCYTES % (MANUAL) 10 %; NEUTROPHILS % (MANUAL) 57 %; POLYCHROMASIA SLIGHT
[2018-07-07] MEDS: SUCRALFATE 1 GM (CARAFATE) TAB PO SCH ×4 (05:27→21:23)
[2018-07-07 05:31] VITALS: BP 130/60
[2018-07-07 08:00] VITALS: BP 137/64
[2018-07-07] MEDS: PANTOPRAZOLE 40 MG (PROTONIX) VIAL IV SCH (09:11)
[2018-07-07] MEDS: CLOPIDOGREL 75 MG (PLAVIX) TABLET PO SCH (09:12)
[2018-07-07] MEDS: ASPIRIN E.C. 81 MG (ECOTRIN) TAB PO SCH (09:12)
[2018-07-07] MEDS: meTOprolol TARTRATE 50 MG (LOPRESSOR) TAB PO SCH (09:12)
--- NOTE | 2018-07-07 11:34 | Cardiology Progress Note ---
Cardiology SOAP Progress Note Subjective: No cardiac complaints. Objective: I&O/Vital Signs 07/08/18 07/08/18 07/08/18 04:50 08:00 08:00 Temp 98.0 98.4 Pulse 63 77 Resp 20 18 B/P (MAP) 144/67 (92) 129/61 (83) Pulse Ox 96 94 96 O2 Delivery Room Air Room Air Room Air O2 Flow Rate 10.00 07/08/18 00:00 Intake Total 1480 ml Balance 1480 ml Weight (Pounds): 198 Weight (Ounces): 0.0 Weight (Calculated Kilograms): 89.554307 Constitutional: No appears stated age; AAO x 3; No apparent distress, No PERRL , No well-developed, No well-nourished, No other Respiratory: No accessory muscle use, No respiratory distress, No chest tender , No chest expansion is symmetric; chest is bilaterally symmetric; No lungs clear to percussion; lungs clear to auscultation; No crackles, No rhonchi, No rales, No stridor, No wheezing, No pleural rub, No other Cardiovascular: regular rate-rhythm; No irregularly irregular, No extra beats, No parasternal heave is noted, No JVD, No edema, No bradycardia, No tachycardia , No point of maximal impulse, No cardiac thrills are palpable; S1 and S2; No gallop/S3, No gallop/S4, No diastolic murmur, No systolic murmur, No friction rub, No click, No other Gastrointestional: No tender, No soft, No round, No distended, No pulsatile mass, No organomegaly, No guarding, No rebound, No tenderness, No hernia, No mass, No audible bowel sounds, No abnormal bowel sounds, No abdominal bruits, No spleenomegaly, No other Extremities: No normal range of motion, No non-tender, No normal inspection, No pedal edema, No calf tenderness, No normal capillary refill, No pelvis stable , No calf tenderness, No inflammation, No pedal edema, No slow capillary refill , No swelling, No other, No abrasion, No clubbing, No cyanosis, No ecchymosis, No laceration, No no lower extremity edema bilateral, No significant edema, No tenderness, No wound Neurologic/Psychiatric: no motor/sensory deficits, alert, normal mood/affect, oriented x 3 Skin: No normal color, No warm/dry, No cyanosis, No cool, No diaphoresis, No damp, No ecchymosis, No jaundice, No mottled, No pallor, No rash, No tattoos/ piercings, No ulcerations, No rash on exposed areas, No ulcerations on exposed areas, No other Results/Procedures: Labs Laboratory Tests 07/08/18 03:30: White Blood Count 7.5, Red Blood Count 2.94L, Hemoglobin 8.8L, Hematocrit 27L, Mean Corpuscular Volume 91, Mean Corpuscular Hemoglobin 30, Mean Corpuscular Hemoglobin Concent 33, Red Cell Distribution Width 16.5H, Platelet Count 257, Mean Platelet Volume 9.3, Neutrophils (%) (Auto) 53, Lymphocytes (%) (Auto) 24, Monocytes (%) (Auto) 8, Eosinophils (%) (Auto) 15H, Basophils (%) (Auto) 0, Neutrophils # (Auto) 4.0, Lymphocytes # (Auto) 1.8, Monocytes # (Auto) 0.6, Eosinophils # (Auto) 1.1H, Basophils # (Auto) 0.0, Sodium Level 138, Potassium Level 3.9, Chloride Level 108H, Carbon Dioxide Level 21, Anion Gap 9, Blood Urea Nitrogen 24H, Creatinine 1.22, Estimat Glomerular Filtration Rate 60, BUN/ Creatinine Ratio 20, Glucose Level 155H, Calcium Level 8.9 Microbiology 07/04/18 MRSA Screen - Final, Complete MRSA not isolated A/P: Assessment/Dx: GI bleed Anemia Coronary artery disease Unstable angina Plan: GI bleed, severe anemia, received blood transfusion. Underwent EGD with Dr. Real revealing gastritis and ulceration with no active bleeding, on protonix and carafate. Continue to transfuse as needed. Unstable angina, atypical presentation, had some EKG changes, no further episodes of chest pain. Continue to monitor Coronary artery disease history of CABG done in 2011, cardiac catheterization done on June 25, [address] Khan showing 80 percent distal left main, total occlusion of the ostium of the obtuse marginal with multiple lesions in the right coronary artery, severe stenosis in the proximal vein graft to the obtuse marginal underwent drug-eluting stent deployment using Sherri 2.5 x 18 mm with good results, patent vein graft to the OM1 and vein graft to D2, patent vein graft to right coronary artery PDA with ejection fraction 45-50 percent. Patient has already started on aspirin and Plavix. Hypertension, continue monitor blood pressure Hyperlipidemia, maintained on statin. Diabetes mellitus, followed and managed by primary care physician Tobaccoism, educated on avoiding tobacco products Thank you for your consultation. Please call me if you have any questions. Musa Keene MD, FACP, FACC, FSCAI, FHRS, CCDS Interventional Cardiology Cardiac Electrophysiology Vascular Medicine and Endovascular Interventions Clinical Quality Measures AMI/AHF: ASA po Prior to arrival: Yes (81) Pankaj KEENE MD Jul 07, 2018 11:34 am
--- NOTE | 2018-07-07 11:53 | Progress Note (SOAP) ---
Subjective Subjective/Events-last exam Patient states that he feels better this AM. Been up walking last night and felt like his normal self. Denies any abdominal pain. Had 1 BM that was dark in color but without BRB. Tolerating PO diet Review of Systems Date Seen by Provider: Jul 07, 2018 Time Seen by Provider: 11:00 Pulmonary: Dyspnea (with exertion) Cardiovascular: No: Chest Pain, Palpitations Gastrointestinal: No: Nausea, Vomiting, Abdominal Pain, Diarrhea, Constipation Genitourinary: No Dysuria, No Frequency Neurological: Weakness Objective Exam Last Set of Vital Signs Vital Signs Date Time Temp Pulse Resp B/P (MAP) Pulse Ox O2 Delivery O2 Flow Rate FiO2 07/07/18 09:00 Room Air 07/07/18 08:00 97.7 62 18 137/64 (88) 94 07/04/18 16:45 10 Capillary Refill : Less Than 3 Seconds I&O Intake and Output 07/07/18 00:00 Intake Total 1430 ml Output Total 2600 ml Balance -1170 ml Intake Oral 1430 ml Output Urine Total 2600 ml # Voids 2 General: Alert, Oriented X3, Cooperative, No Acute Distress Lungs: Clear to Auscultation, Normal Air Movement Heart: Regular Rate, No Murmurs Abdomen: Normal Bowel Sounds, Soft, No Tenderness, No Masses Extremities: No Edema, No Tenderness/Swelling Results/Procedures Lab Laboratory Tests 07/07/18 04:05: White Blood Count 7.7, Red Blood Count 3.03L, Hemoglobin 9.1L, Hematocrit 28L, Mean Corpuscular Volume 91, Mean Corpuscular Hemoglobin 30, Mean Corpuscular Hemoglobin Concent 33, Red Cell Distribution Width 16.4H, Platelet Count 247, Mean Platelet Volume 9.5, Neutrophils (%) (Auto) 59, Lymphocytes (%) (Auto) 20, Monocytes (%) (Auto) 8, Eosinophils (%) (Auto) 13H, Basophils (%) (Auto) 0, Neutrophils # (Auto) 4.6, Lymphocytes # (Auto) 1.6, Monocytes # (Auto) 0.6, Eosinophils # (Auto) 1.0H, Basophils # (Auto) 0.0, Neutrophils % (Manual) 57, Lymphocytes % (Manual) 19, Monocytes % (Manual) 10, Eosinophils % (Manual) 14, Polychromasia SLIGHT, Anisocytosis SLIGHT, Microcytosis SLIGHT, Macrocytosis SLIGHT 07/07/18 09:00: Stool Occult Blood Immunoassay POSITIVEH Microbiology 07/04/18 MRSA Screen - Final, Complete MRSA not isolated Assessment/Plan Assessment/Plan (1) GI bleeding Status: Acute Assessment & Plan: - Dr Real consulted and plan to EGD today, VS stable s/p 2 units pRBCs, continue to monitor vitals 07/05: non bleeding ulcer seen, started on IV protonix and carafate, getting blood this AM 07/06: defer to surgery about advancing diet, ok to transfer to floor and continue to monitor hgb while on ASA and Plavix, possible d/c tomorrow or sat as long as hgb stays stable 07/07: Dropped Hgb slightly, will continue to monitor on ASA and plavix, would like to see hgb stable and increasing prior to d.c Qualifiers: Qualified Codes: K92.2 - Gastrointestinal hemorrhage, unspecified (2) Anemia due to acute blood loss Status: Acute (3) Chest pain Status: Resolved Assessment & Plan: - Resolved since starting blood, likely some demand ischemia Qualifiers: Qualified Codes: R07.9 - Chest pain, unspecified (4) Coronary artery disease Status: Chronic Assessment & Plan: - Recent stenting, Cardiology following given need for blood thinner in light of GI bleed 07/05: Will restart ASA/Plavix in AM and continue to monitor patient Qualifiers: Qualified Codes: I25.810 - Atherosclerosis of coronary artery bypass graft(s ) without angina pectoris (5) HLD (hyperlipidemia) Status: Chronic Qualifiers: Qualified Codes: E78.2 - Mixed hyperlipidemia (6) Gallstones Status: Chronic Assessment & Plan: - Stable, Outpatient f.u (7) HTN (hypertension) Status: Chronic Assessment & Plan: - Hold BP meds given GI bleed 07/05: Restart meds, d/c fluids today Qualifiers: Qualified Codes: I10 - Essential (primary) hypertension (8) Tobacco abuse Status: Chronic Clinical Quality Measures AMI/AHF: ASA po Prior to arrival: Yes (81) DVT/VTE Risk/Contraindication: Risk Factor Score Per Nursin RFS Level Per Nursing on Admit: 4+=Very High RAMIRO TRUONG MD Jul 07, 2018 11:53
[2018-07-07 13:00] VITALS: BP 130/67
--- NOTE | 2018-07-07 14:56 | Progress Note ---
Subjective Date Seen by a Provider: Jul 07, 2018 Time Seen by a Provider: 11:22 Subjective/Events-last exam Patient feeling well. He has no new complaints. He is tolerating diet. She's having bowel movements. States is little bit dark but no bright red blood. Patient denies any nausea or vomiting fever sweats chills shortness of breath or chest pain. He shouldn't hemoglobin slightly decreased. Objective Exam Vital Signs Date Time Temp Pulse Resp B/P (MAP) Pulse Ox O2 Delivery O2 Flow Rate FiO2 07/07/18 13:00 96.8 65 18 130/67 (88) 99 Room Air 07/07/18 09:00 Room Air 07/07/18 08:00 97.7 62 18 137/64 (88) 94 Room Air 07/07/18 05:31 97.2 74 20 130/60 (83) 96 Room Air 07/07/18 00:01 97.0 78 20 136/68 (90) 97 Room Air 07/06/18 20:00 Room Air 07/06/18 19:35 97.2 83 20 146/74 (98) 97 Room Air 07/06/18 15:46 96.6 76 18 152/75 (100) 95 Room Air I & O 07/07/18 07:00 Intake Total 1530 ml Output Total 1500 ml Balance 30 ml Capillary Refill : Less Than 3 Seconds General Appearance: No Apparent Distress, WD/WN HEENT: PERRL/EOMI, TMs Normal, Normal ENT Inspection, Pharynx Normal Neck: Full Range of Motion, Normal Inspection, Non Tender, Supple Respiratory: Chest Non Tender, No Accessory Muscle Use, No Respiratory Distress Cardiovascular: Regular Rate, Rhythm, No JVD, Normal Peripheral Pulses Gastrointestinal: normal bowel sounds, non tender, soft (incisional hernia), no organomegaly Extremity: Normal Capillary Refill, Normal Inspection, Normal Range of Motion, Non Tender, No Calf Tenderness, No Pedal Edema Neurologic/Psychiatric: Alert, Oriented x3, No Motor/Sensory Deficits, Normal Mood/Affect Skin: Normal Color, Warm/Dry Lymphatic: No Adenopathy Results Lab Laboratory Tests 07/07/18 04:05: White Blood Count 7.7, Red Blood Count 3.03L, Hemoglobin 9.1L, Hematocrit 28L, Mean Corpuscular Volume 91, Mean Corpuscular Hemoglobin 30, Mean Corpuscular Hemoglobin Concent 33, Red Cell Distribution Width 16.4H, Platelet Count 247, Mean Platelet Volume 9.5, Neutrophils (%) (Auto) 59, Lymphocytes (%) (Auto) 20, Monocytes (%) (Auto) 8, Eosinophils (%) (Auto) 13H, Basophils (%) (Auto) 0, Neutrophils # (Auto) 4.6, Lymphocytes # (Auto) 1.6, Monocytes # (Auto) 0.6, Eosinophils # (Auto) 1.0H, Basophils # (Auto) 0.0, Neutrophils % (Manual) 57, Lymphocytes % (Manual) 19, Monocytes % (Manual) 10, Eosinophils % (Manual) 14, Polychromasia SLIGHT, Anisocytosis SLIGHT, Microcytosis SLIGHT, Macrocytosis SLIGHT 07/07/18 09:00: Stool Occult Blood Immunoassay POSITIVEH Microbiology 07/04/18 MRSA Screen - Final, Complete MRSA not isolated Assessment/Plan Assessment/Plan Assessment/Plan gi bleed likely upper duodenitis and small ulcer in cardia no active bleeding CAD with recent stenting on Plavix/aspirin epigastric abdominal pain incisional hernia cholelithiasis anemia Protonic/ carafate follow labs Diet artery started patient on Plavix and aspirin slight drop in hemoglobin continue to monitor to make sure it stays stable Clinical Quality Measures AMI/AHF: ASA po Prior to arrival: Yes (81) DVT/VTE Risk/Contraindication: Risk Factor Score Per Nursin RFS Level Per Nursing on Admit: 4+=Very High BALBIR JENNINGS DO Jul 07, 2018 14:56
[2018-07-07 15:49] VITALS: BP 130/61
[2018-07-07] MEDS: PANTOPRAZOLE 40 MG (PROTONIX) TAB PO SCH (17:08)
[2018-07-07 19:20] VITALS: BP 138/61
[2018-07-08 00:58] VITALS: BP 136/64
[2018-07-08 04:26] LABS: BASOPHILS % (AUTO) 0 % (0-10); EOSINOPHILS # (AUTO) 1.1 10^3/uL (0.0-0.3); EOSINOPHILS % (AUTO) 15 % (0-10); HEMATOCRIT 27 % (40-54); HEMOGLOBIN 8.8 G/DL (13.3-17.7); LYMPHOCYTES # (AUTO) 1.8 X 10^3 (1.0-4.0); LYMPHOCYTES % (AUTO) 24 % (12-44); MEAN CORPUSCULAR HEMOGLOBIN 30 PG (25-34); MEAN CORPUSCULAR HGB CONC 33 G/DL (32-36); MEAN CORPUSCULAR VOLUME 91 FL (80-99); MEAN PLATELET VOLUME 9.3 FL (7.4-10.4); MONOCYTES # (AUTO) 0.6 X 10^3 (0.0-1.0); MONOCYTES % (AUTO) 8 % (0-12); NEUTROPHILS % (AUTO) 53 % (42-75); PLATELET COUNT 257 10^3/uL (130-400); RED CELL DISTRIBUTION WIDTH 16.5 % (10.0-14.5); WHITE BLOOD COUNT 7.5 10^3/uL (4.3-11.0)
[2018-07-08 04:42] LABS: CALCIUM 8.9 MG/DL (8.5-10.1); CREATININE SERUM 1.22 MG/DL (0.60-1.30); POTASSIUM 3.9 MMOL/L (3.6-5.0)
[2018-07-08 04:50] VITALS: BP 144/67
[2018-07-08] MEDS: SUCRALFATE 1 GM (CARAFATE) TAB PO SCH ×4 (06:29→21:16)
[2018-07-08] MEDS: PANTOPRAZOLE 40 MG (PROTONIX) TAB PO SCH ×2 (06:29→16:14)
--- NOTE | 2018-07-08 07:51 | NUR ---
PRIOR TO A.M. MEDICATIONS PULSE WAS 77BPM AND B/P WAS 129/61.
[2018-07-08 08:00] VITALS: BP 129/61
[2018-07-08] MEDS: CLOPIDOGREL 75 MG (PLAVIX) TABLET PO SCH (08:56)
[2018-07-08] MEDS: meTOprolol TARTRATE 50 MG (LOPRESSOR) TAB PO SCH (08:56)
[2018-07-08] MEDS: ASPIRIN E.C. 81 MG (ECOTRIN) TAB PO SCH (08:57)
[2018-07-08 12:00] VITALS: BP 138/66
--- NOTE | 2018-07-08 12:39 | Progress Note (SOAP) ---
Subjective Subjective/Events-last exam Afebrile, no acute events. He states he is feeling fine. He was hoping to get to go home today but wants to make sure he is better before going. Review of Systems Date Seen by Provider: Jul 08, 2018 Time Seen by Provider: 11:15 Objective Exam Last Set of Vital Signs Vital Signs Date Time Temp Pulse Resp B/P (MAP) Pulse Ox O2 Delivery O2 Flow Rate FiO2 07/08/18 08:00 96 Room Air 10.00 07/08/18 08:00 98.4 77 18 129/61 (83) Capillary Refill : Less Than 3 Seconds I&O Intake and Output 07/08/18 00:00 Intake Total 1780 ml Balance 1780 ml Intake Oral 1780 ml # Voids 9 # Bowel Movements 1 General: Alert, No Acute Distress Lungs: Clear to Auscultation, Normal Air Movement Heart: Regular Rate, No Murmurs Abdomen: Normal Bowel Sounds, Soft Psych/Mental Status: Mental Status NL Results/Procedures Lab Laboratory Tests 07/08/18 03:30: White Blood Count 7.5, Red Blood Count 2.94L, Hemoglobin 8.8L, Hematocrit 27L, Mean Corpuscular Volume 91, Mean Corpuscular Hemoglobin 30, Mean Corpuscular Hemoglobin Concent 33, Red Cell Distribution Width 16.5H, Platelet Count 257, Mean Platelet Volume 9.3, Neutrophils (%) (Auto) 53, Lymphocytes (%) (Auto) 24, Monocytes (%) (Auto) 8, Eosinophils (%) (Auto) 15H, Basophils (%) (Auto) 0, Neutrophils # (Auto) 4.0, Lymphocytes # (Auto) 1.8, Monocytes # (Auto) 0.6, Eosinophils # (Auto) 1.1H, Basophils # (Auto) 0.0, Sodium Level 138, Potassium Level 3.9, Chloride Level 108H, Carbon Dioxide Level 21, Anion Gap 9, Blood Urea Nitrogen 24H, Creatinine 1.22, Estimat Glomerular Filtration Rate 60, BUN/ Creatinine Ratio 20, Glucose Level 155H, Calcium Level 8.9 Microbiology 07/04/18 MRSA Screen - Final, Complete MRSA not isolated Assessment/Plan Assessment/Plan (1) GI bleeding Status: Acute Assessment & Plan: - Dr Real consulted and plan to EGD today, VS stable s/p 2 units pRBCs, continue to monitor vitals 07/05: non bleeding ulcer seen, started on IV protonix and carafate, getting blood this AM 07/06: defer to surgery about advancing diet, ok to transfer to floor and continue to monitor hgb while on ASA and Plavix, possible d/c tomorrow or sat as long as hgb stays stable 07/07: Dropped Hgb slightly, will continue to monitor on ASA and plavix, would like to see hgb stable and increasing prior to d.c 07/08 Hgb continues to drift slightly downward, monitor closely Qualifiers: Qualified Codes: K92.2 - Gastrointestinal hemorrhage, unspecified (2) Anemia due to acute blood loss Status: Acute (3) Chest pain Status: Resolved Assessment & Plan: - Resolved since starting blood, likely some demand ischemia Qualifiers: Qualified Codes: R07.9 - Chest pain, unspecified (4) Coronary artery disease Status: Chronic Assessment & Plan: - Recent stenting, Cardiology following given need for blood thinner in light of GI bleed 07/05: Will restart ASA/Plavix in AM and continue to monitor patient Qualifiers: Qualified Codes: I25.810 - Atherosclerosis of coronary artery bypass graft(s ) without angina pectoris (5) HLD (hyperlipidemia) Status: Chronic Qualifiers: Qualified Codes: E78.2 - Mixed hyperlipidemia (6) Gallstones Status: Chronic Assessment & Plan: - Stable, Outpatient f.u (7) HTN (hypertension) Status: Chronic Assessment & Plan: - Hold BP meds given GI bleed 07/05: Restart meds, d/c fluids today Qualifiers: Qualified Codes: I10 - Essential (primary) hypertension (8) Tobacco abuse Status: Chronic Clinical Quality Measures AMI/AHF: ASA po Prior to arrival: Yes (81) DVT/VTE Risk/Contraindication: Risk Factor Score Per Nursin RFS Level Per Nursing on Admit: 4+=Very High JULIÁN ALEXIS MD Jul 08, 2018 12:39
--- NOTE | 2018-07-08 14:41 | Progress Note ---
Subjective Date Seen by a Provider: Jul 08, 2018 Time Seen by a Provider: 08:36 Subjective/Events-last exam patient feeling good. tolerating diet. Denies any chest or abdominal pain. hgb slight drop. denies n/v fever sweats chills shortness of breath or chest pain. Objective Exam Vital Signs Date Time Temp Pulse Resp B/P (MAP) Pulse Ox O2 Delivery O2 Flow Rate FiO2 07/08/18 08:00 96 Room Air 10.00 07/08/18 08:00 98.4 77 18 129/61 (83) 94 Room Air 07/08/18 04:50 98.0 63 20 144/67 (92) 96 Room Air 07/08/18 00:58 97.7 95 20 136/64 (88) 95 Room Air 07/07/18 20:00 Room Air 07/07/18 19:20 98.5 67 18 138/61 (86) 98 Room Air 07/07/18 15:49 98.2 63 18 130/61 (84) 94 Room Air I & O 07/08/18 06:59 Intake Total 1880 ml Balance 1880 ml Capillary Refill : Less Than 3 Seconds General Appearance: No Apparent Distress, WD/WN HEENT: PERRL/EOMI, TMs Normal, Normal ENT Inspection, Pharynx Normal Neck: Full Range of Motion, Normal Inspection, Non Tender, Supple Respiratory: Chest Non Tender, No Accessory Muscle Use, No Respiratory Distress Cardiovascular: Regular Rate, Rhythm, No JVD, Normal Peripheral Pulses Gastrointestinal: non tender, soft (incisional hernia), no organomegaly Extremity: Normal Capillary Refill, Normal Inspection, Normal Range of Motion, Non Tender, No Calf Tenderness, No Pedal Edema Neurologic/Psychiatric: Alert, Oriented x3, No Motor/Sensory Deficits, Normal Mood/Affect Skin: Normal Color, Warm/Dry Lymphatic: No Adenopathy Results Lab Laboratory Tests 07/08/18 03:30: White Blood Count 7.5, Red Blood Count 2.94L, Hemoglobin 8.8L, Hematocrit 27L, Mean Corpuscular Volume 91, Mean Corpuscular Hemoglobin 30, Mean Corpuscular Hemoglobin Concent 33, Red Cell Distribution Width 16.5H, Platelet Count 257, Mean Platelet Volume 9.3, Neutrophils (%) (Auto) 53, Lymphocytes (%) (Auto) 24, Monocytes (%) (Auto) 8, Eosinophils (%) (Auto) 15H, Basophils (%) (Auto) 0, Neutrophils # (Auto) 4.0, Lymphocytes # (Auto) 1.8, Monocytes # (Auto) 0.6, Eosinophils # (Auto) 1.1H, Basophils # (Auto) 0.0, Sodium Level 138, Potassium Level 3.9, Chloride Level 108H, Carbon Dioxide Level 21, Anion Gap 9, Blood Urea Nitrogen 24H, Creatinine 1.22, Estimat Glomerular Filtration Rate 60, BUN/ Creatinine Ratio 20, Glucose Level 155H, Calcium Level 8.9 Microbiology 07/04/18 MRSA Screen - Final, Complete MRSA not isolated Assessment/Plan Assessment/Plan Assessment/Plan gi bleed likely upper duodenitis and small ulcer in cardia no active bleeding CAD with recent stenting on Plavix/aspirin epigastric abdominal pain incisional hernia cholelithiasis anemia Protonic/ carafate follow labs, hgb slightly decreasing Diet already started patient on Plavix and aspirin slight drop in hemoglobin continue to monitor to make sure it stays stable Clinical Quality Measures AMI/AHF: ASA po Prior to arrival: Yes (81) DVT/VTE Risk/Contraindication: Risk Factor Score Per Nursin RFS Level Per Nursing on Admit: 4+=Very High BALBIR JENNINGS DO Jul 08, 2018 14:40
[2018-07-08 15:51] VITALS: BP 145/67
[2018-07-08 20:00] VITALS: BP 149/67
[2018-07-09 00:49] VITALS: BP 137/61
[2018-07-09] MEDS: SUCRALFATE 1 GM (CARAFATE) TAB PO SCH ×2 (06:21→11:10)
[2018-07-09] MEDS: PANTOPRAZOLE 40 MG (PROTONIX) TAB PO SCH (06:21)
[2018-07-09 06:33] LABS: HEMOGLOBIN 8.9 G/DL (13.3-17.7); MEAN PLATELET VOLUME 9.4 FL (7.4-10.4); RED CELL DISTRIBUTION WIDTH 15.7 % (10.0-14.5); WHITE BLOOD COUNT 7.2 10^3/uL (4.3-11.0)
--- NOTE | 2018-07-09 07:52 | NUR ---
PRIOR TO A.M. MEDICATIONS PULSE WAS 68 AND B/P WAS 106/56.
[2018-07-09 08:00] VITALS: BP 106/56
[2018-07-09] MEDS: ASPIRIN E.C. 81 MG (ECOTRIN) TAB PO SCH (08:11)
[2018-07-09] MEDS: CLOPIDOGREL 75 MG (PLAVIX) TABLET PO SCH (08:12)
[2018-07-09] MEDS: meTOprolol TARTRATE 50 MG (LOPRESSOR) TAB PO SCH (08:12)
[2018-07-09] MEDS ORDERED: PANT40TA3 PO (11:11)
[2018-07-09] MEDS ORDERED: CLOP75TA28 PO (11:11)
[2018-07-09] MEDS ORDERED: SUCR1TAB PO (11:11)
--- NOTE | 2018-07-09 14:15 | Cardiology Progress Note ---
Cardiology SOAP Progress Note Subjective: No cardiac complaint. Objective: I&O/Vital Signs 07/09/18 07/09/18 08:00 08:00 Temp 97.0 Pulse 68 Resp 18 B/P (MAP) 106/56 (73) Pulse Ox 97 97 O2 Delivery Room Air 07/09/18 00:00 Intake Total 2045 ml Balance 2045 ml Weight (Pounds): 197 Weight (Ounces): 3.2 Weight (Calculated Kilograms): 89.247990 Constitutional: No appears stated age; AAO x 3; No apparent distress, No PERRL , No well-developed, No well-nourished, No other Respiratory: No accessory muscle use, No respiratory distress, No chest tender , No chest expansion is symmetric; chest is bilaterally symmetric; No lungs clear to percussion; lungs clear to auscultation; No crackles, No rhonchi, No rales, No stridor, No wheezing, No pleural rub, No other Cardiovascular: regular rate-rhythm; No irregularly irregular, No extra beats, No parasternal heave is noted, No JVD, No edema, No bradycardia, No tachycardia , No point of maximal impulse, No cardiac thrills are palpable; S1 and S2; No gallop/S3, No gallop/S4, No diastolic murmur, No systolic murmur, No friction rub, No click, No other Gastrointestional: No tender, No soft, No round, No distended, No pulsatile mass, No organomegaly, No guarding, No rebound, No tenderness, No hernia, No mass, No audible bowel sounds, No abnormal bowel sounds, No abdominal bruits, No spleenomegaly, No other Extremities: No normal range of motion, No non-tender, No normal inspection, No pedal edema, No calf tenderness, No normal capillary refill, No pelvis stable , No calf tenderness, No inflammation, No pedal edema, No slow capillary refill , No swelling, No other, No abrasion, No clubbing, No cyanosis, No ecchymosis, No laceration, No no lower extremity edema bilateral, No significant edema, No tenderness, No wound Neurologic/Psychiatric: no motor/sensory deficits, alert, normal mood/affect, oriented x 3 Skin: No normal color, No warm/dry, No cyanosis, No cool, No diaphoresis, No damp, No ecchymosis, No jaundice, No mottled, No pallor, No rash, No tattoos/ piercings, No ulcerations, No rash on exposed areas, No ulcerations on exposed areas, No other Results/Procedures: Labs Laboratory Tests 07/09/18 05:35: White Blood Count 7.2, Red Blood Count 2.97L, Hemoglobin 8.9L, Hematocrit 27L, Mean Corpuscular Volume 91, Mean Corpuscular Hemoglobin 30, Mean Corpuscular Hemoglobin Concent 33, Red Cell Distribution Width 15.7H, Platelet Count 278, Mean Platelet Volume 9.4 Microbiology 07/04/18 MRSA Screen - Final, Complete MRSA not isolated A/P: Assessment/Dx: GI bleed Anemia Coronary artery disease Unstable angina Plan: GI bleed, severe anemia, received blood transfusion. Underwent EGD with Dr. Real revealing gastritis and ulceration with no active bleeding, on protonix and carafate. Stable. Unstable angina, atypical presentation, had some EKG changes, no further episodes of chest pain. Continue to monitor Coronary artery disease history of CABG done in 2011, cardiac catheterization done on June 25, [address] Khan showing 80 percent distal left main, total occlusion of the ostium of the obtuse marginal with multiple lesions in the right coronary artery, severe stenosis in the proximal vein graft to the obtuse marginal underwent drug-eluting stent deployment using Sherri 2.5 x 18 mm with good results, patent vein graft to the OM1 and vein graft to D2, patent vein graft to right coronary artery PDA with ejection fraction 45-50 percent. Patient has already started on aspirin and Plavix. Hypertension, continue monitor blood pressure. Hold metoprolol due to borderline bradycardia and hypotension. Hyperlipidemia, maintained on statin. Diabetes mellitus, followed and managed by primary care physician Carolyne, educated on avoiding tobacco products Follow-up with Dr. Khan this week. Thank you for your consultation. Please call me if you have any questions. Musa Keene MD, FACP, FACC, FSCAI, FHRS, CCDS Interventional Cardiology Cardiac Electrophysiology Vascular Medicine and Endovascular Interventions Clinical Quality Measures AMI/AHF: ASA po Prior to arrival: Yes (81) Pankaj KEENE MD Jul 09, 2018 2:15 pm
[2018-07-09 14:53] VITALS: BP 106/56
--- NOTE | 2018-07-09 19:27 | Discharge Summary ---
Diagnosis/Chief Complaint Date of Admission Jul 03, 2018 at 22:56 Date of Discharge Jul 09, 2018 at 15:10 Admission Diagnosis Admission Diagnosis GI bleed Chest pain Discharge Diagnosis See problem list Problems/Diagnosis: (1) GI bleeding Assessment & Plan: - Dr Real consulted and plan to EGD today, VS stable s/p 2 units pRBCs, continue to monitor vitals 07/05: non bleeding ulcer seen, started on IV protonix and carafate, getting blood this AM 07/06: defer to surgery about advancing diet, ok to transfer to floor and continue to monitor hgb while on ASA and Plavix, possible d/c tomorrow or sat as long as hgb stays stable 07/07: Dropped Hgb slightly, will continue to monitor on ASA and plavix, would like to see hgb stable and increasing prior to d.c 07/08 Hgb continues to drift slightly downward, monitor closely 07/09 Hemoglobin stable at 8.9 on discharge. Qualifiers: Qualified Codes: K92.2 - Gastrointestinal hemorrhage, unspecified Status: Acute (2) Anemia due to acute blood loss Status: Acute (3) Chest pain Assessment & Plan: - Resolved since starting blood, likely some demand ischemia Qualifiers: Qualified Codes: R07.9 - Chest pain, unspecified Status: Resolved Resolution Date/Time: 07/04/18 @ 16:08 (4) Coronary artery disease Assessment & Plan: - Recent stenting, Cardiology following given need for blood thinner in light of GI bleed 07/05: Will restart ASA/Plavix in AM and continue to monitor patient Qualifiers: Qualified Codes: I25.810 - Atherosclerosis of coronary artery bypass graft(s ) without angina pectoris Status: Chronic (5) HLD (hyperlipidemia) Qualifiers: Qualified Codes: E78.2 - Mixed hyperlipidemia Status: Chronic (6) Gallstones Assessment & Plan: - Stable, Outpatient f.u Status: Chronic (7) HTN (hypertension) Assessment & Plan: - Hold BP meds given GI bleed 07/05: Restart meds, d/c fluids today Qualifiers: Qualified Codes: I10 - Essential (primary) hypertension Status: Chronic (8) Tobacco abuse Status: Chronic Chief Complaint/HPI Chief Complaint/HPI 63 yo M that presented with chest pain and shortness of breath. Patient was found to have profound anemia. Patient recently had Cath with stent placement and was started on brillinta. Patient states that he has been short of breath for the last few days. Pain has resolved since starting on pRBCs. Patient states that he has had dark black stools for the last week. Denies any bright red blood. Denies any N/V. Discharge Summary-Simple/Stand Consultations Discharge Physical Examination Allergies: Coded Allergies: NKANo Known Allergies (Unverified Allergy, Mild, 07/20/09) Vitals & I&Os Vital Sign - Last 12Hours Date Time Temp Pulse Resp B/P (MAP) Pulse Ox O2 Delivery O2 Flow Rate FiO2 07/09/18 14:53 68 18 106/56 97 Room Air 07/09/18 08:00 97.0 07/08/18 08:00 10.00 Intake and Output 07/08/18 23:59 Intake Total 2045 ml Balance 2045 ml General Appearance: Alert, No Acute Distress Respiratory: Clear to Auscultation, Normal Air Movement Cardiovascular: Regular Rate, No Murmurs Abdominal: Normal Bowel Sounds, Soft Neuro: Normal Speech Psych/Mental Status: Mental Status NL Hospital Course See final discharge diagnosis. Labs Laboratory Tests Test 07/08/18 03:30 07/09/18 05:35 Range/Units White Blood Count 7.5 7.2 4.3-11.0 10^3/uL Red Blood Count 2.94 L 2.97 L 4.35-5.85 10^6/uL Hemoglobin 8.8 L 8.9 L 13.3-17.7 G/DL Hematocrit 27 L 27 L 40-54 % Mean Corpuscular Volume 91 91 80-99 FL Mean Corpuscular Hemoglobin 30 30 25-34 PG Mean Corpuscular Hemoglobin Concent 33 33 32-36 G/DL Red Cell Distribution Width 16.5 H 15.7 H 10.0-14.5 % Platelet Count 257 278 130-400 10^3/uL Mean Platelet Volume 9.3 9.4 7.4-10.4 FL Neutrophils (%) (Auto) 53 42-75 % Lymphocytes (%) (Auto) 24 12-44 % Monocytes (%) (Auto) 8 0-12 % Eosinophils (%) (Auto) 15 H 0-10 % Basophils (%) (Auto) 0 0-10 % Neutrophils # (Auto) 4.0 1.8-7.8 X 10^3 Lymphocytes # (Auto) 1.8 1.0-4.0 X 10^3 Monocytes # (Auto) 0.6 0.0-1.0 X 10^3 Eosinophils # (Auto) 1.1 H 0.0-0.3 10^3/uL Basophils # (Auto) 0.0 0.0-0.1 10^3/uL Sodium Level 138 135-145 MMOL/L Potassium Level 3.9 3.6-5.0 MMOL/L Chloride Level 108 H 98-107 MMOL/L Carbon Dioxide Level 21 21-32 MMOL/L Anion Gap 9 5-14 MMOL/L Blood Urea Nitrogen 24 H 7-18 MG/DL Creatinine 1.22 0.60-1.30 MG/DL Estimat Glomerular Filtration Rate 60 BUN/Creatinine Ratio 20 Glucose Level 155 H 70-105 MG/DL Calcium Level 8.9 8.5-10.1 MG/DL Discharge Instructions to patient/family Please see electronic discharge instructions given to patient. Discharge Medications Reviewed and agree with Discharge Medication list on patient's Discharge Instruction sheet Clinical Quality Measures AMI/AHF: ASA po Prior to arrival: Yes (81) DVT/VTE Risk/Contraindication: Risk Factor Score Per Nursin RFS Level Per Nursing on Admit: 4+=Very High JULIÁN ALEXIS MD Jul 09, 2018 19:26
--- NOTE | 2018-07-09 21:23 | Progress Note ---
Subjective Date Seen by a Provider: Jul 09, 2018 Time Seen by a Provider: 15:22 Subjective/Events-last exam Patient feeling well. Tolerating diet. No abdominal pain. Hgb stable. No new complaints, wanting to go home. Objective Exam Vital Signs Date Time Temp Pulse Resp B/P (MAP) Pulse Ox O2 Delivery O2 Flow Rate FiO2 07/09/18 14:53 68 18 106/56 97 Room Air 07/09/18 08:00 97.0 68 18 106/56 (73) 97 Room Air 07/09/18 08:00 97 07/09/18 00:49 97.5 56 18 137/61 (86) 97 Room Air I & O 07/09/18 07:00 Intake Total 2245 ml Balance 2245 ml Capillary Refill : Less Than 3 Seconds General Appearance: No Apparent Distress, WD/WN HEENT: PERRL/EOMI, TMs Normal, Normal ENT Inspection, Pharynx Normal Neck: Full Range of Motion, Normal Inspection, Non Tender, Supple Respiratory: Chest Non Tender, No Accessory Muscle Use, No Respiratory Distress Cardiovascular: Regular Rate, Rhythm, No JVD, Normal Peripheral Pulses Gastrointestinal: non tender, soft, no organomegaly, hernia Extremity: Normal Capillary Refill, Normal Inspection, Normal Range of Motion, Non Tender, No Calf Tenderness, No Pedal Edema Neurologic/Psychiatric: Alert, Oriented x3, No Motor/Sensory Deficits, Normal Mood/Affect Skin: Normal Color, Warm/Dry Lymphatic: No Adenopathy Results Lab Laboratory Tests 07/09/18 05:35: White Blood Count 7.2, Red Blood Count 2.97L, Hemoglobin 8.9L, Hematocrit 27L, Mean Corpuscular Volume 91, Mean Corpuscular Hemoglobin 30, Mean Corpuscular Hemoglobin Concent 33, Red Cell Distribution Width 15.7H, Platelet Count 278, Mean Platelet Volume 9.4 Microbiology 07/04/18 MRSA Screen - Final, Complete MRSA not isolated Assessment/Plan Assessment/Plan Assessment/Plan gi bleed likely upper duodenitis and small ulcer in cardia no active bleeding CAD with recent stenting on Plavix/aspirin epigastric abdominal pain incisional hernia cholelithiasis anemia Protonix/ carafate follow labs, hgb stable on diet and hgb stable okay to ct home from surgical standpoint with close outpatient follow up. Clinical Quality Measures AMI/AHF: ASA po Prior to arrival: Yes (81) DVT/VTE Risk/Contraindication: Risk Factor Score Per Nursin RFS Level Per Nursing on Admit: 4+=Very High BALBIR JENNINGS DO Jul 09, 2018 21:22
== END 2018-07-09 15:10 | disposition home or self-care (01) | DRG 377 ==
LOC: EDUNIT# 21:46 → ER 21:49 → ICU 22:56 → 4TH 07-06 11:53
PROVIDERS: ADMIT Family Medicine; ATTEND Family Medicine
PROC: 0DJ08ZZ Inspection of Upper Intestinal Tract, Via Natural or Artificial Opening Endoscopic (ICD-10-PCS; principal; 2018-07-04 16:15)
DX: K25.4 Chronic or unspecified gastric ulcer with hemorrhage (principal); K29.81 Duodenitis with bleeding; K29.70 Gastritis, unspecified, without bleeding; D62 Acute posthemorrhagic anemia; I21.4 Non-ST elevation (NSTEMI) myocardial infarction; I25.700 Atherosclerosis of coronary artery bypass graft(s), unspecified, with unstable angina pectoris; N28.9 Disorder of kidney and ureter, unspecified; R00.8 Other abnormalities of heart beat; J44.9 Chronic obstructive pulmonary disease, unspecified; E78.2 Mixed hyperlipidemia; I10 Essential (primary) hypertension; E11.9 Type 2 diabetes mellitus without complications; K43.2 Incisional hernia without obstruction or gangrene; N42.9 Disorder of prostate, unspecified; R19.5 Other fecal abnormalities; M19.91 Primary osteoarthritis, unspecified site; K80.20 Calculus of gallbladder without cholecystitis without obstruction; Z95.1 Presence of aortocoronary bypass graft; Z95.5 Presence of coronary angioplasty implant and graft; Z79.82 Long term (current) use of aspirin; Z79.02 Long term (current) use of antithrombotics/antiplatelets; Z87.891 Personal history of nicotine dependence
CPT/HCPCS: 36415; 71045; 80048; 80053; 80061; 81000; 82274; 82962; 83690; 83735; 83874; 84484; 85007; 85014; 85018; 85025; 85027; 85610; 85730; 86850; 86900; 86901; 86920; 87081; 90471; 93005; 93041; 94664; 96374; 96375

== ENCOUNTER 2018-07-12 14:50 | Emergency (ER) | payer SELFPAY ==
[~2018-07-12] VITALS: Ht 182.9 cm; Wt 90.3 kg
[~2018-07-12 14:50] MED LIST changes: +ASPI-983 PO; +METO50TA15 PO; +PANT40TA3 PO; +SUCR1TAB PO
--- OUTSIDE RECORDS SUMMARY | 2018-07-12 15:48 | XMS REPORT | Continuity of Care Document ---
[...] CORONARY ATHEROSCLEROSIS OF UNSPECIFIED TYPE OF VESSEL PAUMA OR GRAFT 02/25/2011 272.4 OTHER AND UNSPECIFIED HYPERLIPIDEMIA 02/25/2011 414.00 CORONARY ATHEROSCLEROSIS OF UNSPECIFIED TYPE OF VESSEL PAUMA OR GRAFT 02/25/2011 272.4 OTHER AND UNSPECIFIED HYPERLIPIDEMIA 02/25/2011 414.00 CORONARY ATHEROSCLEROSIS OF UNSPECIFIED TYPE OF VESSEL PAUMA OR GRAFT 02/25/2011 MARLOW DO, SAMANTA K 272.4 OTHER AND UNSPECIFIED HYPERLIPIDEMIA 02/25/2011 MARLOW DO, SAMANTA K 414.00 CORONARY ATHEROSCLEROSIS OF UNSPECIFIED TYPE OF VESSEL PAUMA OR GRAFT 02/25/2011 MARLOW DO, SAMANTA K 272.4 OTHER AND UNSPECIFIED HYPERLIPIDEMIA 02/25/2011 MARLOW DO, SAMANTA K 414.00 CORONARY ATHEROSCLEROSIS OF UNSPECIFIED TYPE OF VESSEL PAUMA OR GRAFT 02/25/2011 MARLOW DO, SAMANTA K 272.4 OTHER AND UNSPECIFIED HYPERLIPIDEMIA 02/25/2011 MARLOW DO, SAMANTA K 414.00 CORONARY ATHEROSCLEROSIS OF UNSPECIFIED TYPE OF VESSEL PAUMA OR GRAFT 02/25/2011 MARLOW DO, SAMANTA K 272.4 OTHER AND UNSPECIFIED HYPERLIPIDEMIA 02/25/2011 MARLOW DO, SAMANTA K 414.00 CORONARY ATHEROSCLEROSIS OF UNSPECIFIED TYPE OF VESSEL PAUMA OR GRAFT 04/27/2011 DIMITRI ABBASI, SALVATORE 789.00 [...] MD Ot I25.10 ATHSCL HEART DISEASE OF [place] CORONARY 06/26/2018 RAMIRO TRUONG MD Ot I25.810 [...] MD Ot I25.10 ATHSCL HEART DISEASE OF [place] CORONARY 06/26/2018 RAMIRO TRUONG MD Ot I25.810 ATHEROSCLEROSIS OF CABG W/O ANGINA PECTO 06/26/2018 RAMIRO TRUONG MD Ot K80.20 CALCULUS OF GALLBLADDER W/O CHOLECYSTITI 06/26/2018 RAMIRO TRUONG MD Ot R73.09 OTHER ABNORMAL GLUCOSE 06/26/2018 RAMIRO TRUONG MD Ot Z79.82 SNF (CURRENT) USE OF ASPIRIN 06/26/2018 RAMIRO TRUONG MD Ot Z79.899 OTHER FOREIGN DIPLOMAT (CURRENT) DRUG THERAPY 06/26/2018 RAMIRO TRUONG MD Ot Z95.1 PRESENCE OF AORTOCORONARY BYPASS GRAFT 07/01/2018 PILY BARBER Ot E78.00 PURE HYPERCHOLESTEROLEMIA, UNSPECIFIED 07/01/2018 SUNIL, PILY Ot I10 ESSENTIAL (PRIMARY) HYPERTENSION 07/01/2018 BERNOT, PILY Ot I25.10 ATHSCL HEART DISEASE OF [place] CORONARY 07/01/2018 TISHJESSICA PILY Ot I25.2 OLD MYOCARDIAL INFARCTION 07/01/2018 SUNIL PILY Ot J44.9 CHRONIC OBSTRUCTIVE PULMONARY DISEASE, U 07/01/2018 BERNOT, PILY Ot R21 RASH AND OTHER NONSPECIFIC SKIN ERUPTION 07/01/2018 REYNA BARBERIS Ot Z77.22 CNTCT W AND EXPSR TO ENVIRON TOBACCO SMO 07/01/2018 REYNA BARBERIS Ot Z79.02 SNF (CURRENT) USE OF ANTITHROMBOTI 07/01/2018 BERNOT, PILY Ot Z79.82 SNF (CURRENT) USE OF ASPIRIN 07/01/2018 BERNJESSICA PILY Ot Z82.49 FAMILY HX OF ISCHEM HEART DIS AND OTH DI 07/01/2018 BERNREYNA LOPEZIS Ot Z87.448 PERSONAL HISTORY OF OTHER DISEASES OF UR 07/01/2018 REYNA BARBERIS Ot Z95.1 PRESENCE OF AORTOCORONARY BYPASS GRAFT 07/01/2018 REYNA BARBERIS Ot Z95.9 PRESENCE OF CARDIAC AND VASCULAR IMPLANT 07/04/2018 REYNA BARBERIS Ot E78.00 PURE HYPERCHOLESTEROLEMIA, UNSPECIFIED 07/04/2018 REYNA BARBERIS Ot I10 ESSENTIAL (PRIMARY) HYPERTENSION 07/04/2018 REYNA BARBERIS Ot I25.10 ATHSCL HEART DISEASE OF [place] CORONARY 07/04/2018 REYNA BARBERIS Ot I25.2 OLD MYOCARDIAL INFARCTION 07/04/2018 REYNA BARBERIS Ot J44.9 CHRONIC OBSTRUCTIVE PULMONARY DISEASE, U 07/04/2018 BERNOT PILY Ot R21 RASH AND OTHER NONSPECIFIC SKIN ERUPTION 07/04/2018 REYNA BARBERIS Ot Z77.22 CNTCT W AND EXPSR TO ENVIRON TOBACCO SMO 07/04/2018 REYNA BARBERIS Ot Z79.02 FOREIGN DIPLOMAT (CURRENT) USE OF ANTITHROMBOTI 07/04/2018 BERNJESSICA PILY Ot Z79.82 FOREIGN DIPLOMAT (CURRENT) USE OF ASPIRIN 07/04/2018 REYNA BARBERIS Ot Z82.49 FAMILY HX OF ISCHEM HEART DIS AND OTH DI 07/04/2018 REYNA BARBERIS Ot Z87.448 PERSONAL HISTORY OF OTHER DISEASES OF UR 07/04/2018 PILY BARBER Ot Z95.1 PRESENCE OF AORTOCORONARY BYPASS GRAFT 07/04/2018 PILY BARBER Ot Z95.9 PRESENCE OF CARDIAC AND VASCULAR IMPLANT 07/08/2018 JULIÁN ALEXIS MD Ot D64.9 ANEMIA, UNSPECIFIED 07/08/2018 JULIÁN ALEXIS MD Ot E11.9 TYPE 2 DIABETES MELLITUS WITHOUT COMPLIC 07/08/2018 JULIÁN ALEXIS MD Ot E78.00 PURE HYPERCHOLESTEROLEMIA, UNSPECIFIED 07/08/2018 JULIÁN ALEXIS MD Ot I10 ESSENTIAL (PRIMARY) HYPERTENSION 07/08/2018 JULIÁN ALEXIS MD, Ot I21.4 NON-ST ELEVATION (NSTEMI) MYOCARDIAL INF 07/08/2018 JULIÁN ALEXIS MD, Ot I25.810 ATHEROSCLEROSIS OF CABG W/O ANGINA PECTO 07/08/2018 JULIÁN ALEXIS MD, Ot J44.9 CHRONIC OBSTRUCTIVE PULMONARY DISEASE, U 07/08/2018 JULIÁN ALEXIS MD Ot K92.2 GASTROINTESTINAL HEMORRHAGE, UNSPECIFIED 07/08/2018 JULIÁN ALEXIS MD Ot M19.91 PRIMARY OSTEOARTHRITIS, UNSPECIFIED SITE 07/08/2018 JULIÁN ALEXIS MD Ot N28.9 DISORDER OF KIDNEY AND URETER, UNSPECIFI 07/08/2018 JULIÁN ALEXIS MD Ot N42.9 DISORDER OF PROSTATE, UNSPECIFIED 07/08/2018 JULIÁN ALEXIS MD Ot R00.8 OTHER ABNORMALITIES OF HEART BEAT 07/08/2018 JULIÁN ALEXIS MD Ot R07.9 CHEST PAIN, UNSPECIFIED 07/08/2018 JULIÁN ALEXIS MD Ot R19.5 OTHER FECAL ABNORMALITIES 07/08/2018 JULIÁN ALEXIS MD, Ot Z79.02 FOREIGN DIPLOMAT (CURRENT) USE OF ANTITHROMBOTI 07/08/2018 JULIÁN ALEXIS MD Ot Z79.82 SNF (CURRENT) USE OF ASPIRIN 07/08/2018 JULIÁN ALEXIS MD, Ot Z87.891 PERSONAL HISTORY OF NICOTINE DEPENDENCE 07/08/2018 JULIÁN ALEXIS MD Ot Z95.1 PRESENCE OF AORTOCORONARY BYPASS GRAFT 07/08/2018 JULIÁN ALEXIS MD, Ot Z95.5 PRESENCE OF CORONARY ANGIOPLASTY IMPLANT 07/08/2018 JULIÁN ALEXIS MD, Ot D64.9 ANEMIA, UNSPECIFIED 07/08/2018 JULIÁN ALEXIS MD, Ot E11.9 TYPE 2 DIABETES MELLITUS WITHOUT COMPLIC 07/08/2018 JULIÁN ALEXIS MD, Ot E78.00 PURE HYPERCHOLESTEROLEMIA, UNSPECIFIED 07/08/2018 JULIÁN ALEXIS MD Ot I10 ESSENTIAL (PRIMARY) HYPERTENSION 07/08/2018 JULIÁN ALEXIS MD Ot I21.4 NON-ST ELEVATION (NSTEMI) MYOCARDIAL INF 07/08/2018 JULIÁN ALEXIS MD, Ot I25.810 ATHEROSCLEROSIS OF CABG W/O ANGINA PECTO 07/08/2018 JULIÁN ALEXIS MD, Ot J44.9 CHRONIC OBSTRUCTIVE PULMONARY DISEASE, U 07/08/2018 JULIÁN ALEXIS MD, Ot K92.2 GASTROINTESTINAL HEMORRHAGE, UNSPECIFIED 07/08/2018 JULIÁN ALEXIS MD, Ot M19.91 PRIMARY OSTEOARTHRITIS, UNSPECIFIED SITE 07/08/2018 JULIÁN ALEXIS MD, Ot N28.9 DISORDER OF KIDNEY AND URETER, UNSPECIFI 07/08/2018 JULIÁN ALEXIS MD, Ot N42.9 DISORDER OF PROSTATE, UNSPECIFIED 07/08/2018 JULIÁN ALEXIS MD Ot R00.8 OTHER ABNORMALITIES OF HEART BEAT 07/08/2018 JULIÁN ALEXIS MD Ot R07.9 CHEST PAIN, UNSPECIFIED 07/08/2018 JULIÁN ALEXIS MD Ot R19.5 OTHER FECAL ABNORMALITIES 07/08/2018 JULIÁN ALEXIS MD Ot Z79.02 FOREIGN DIPLOMAT (CURRENT) USE OF ANTITHROMBOTI 07/08/2018 JULIÁN ALEXIS MD Ot Z79.82 SNF (CURRENT) USE OF ASPIRIN 07/08/2018 JULIÁN ALEXIS MD, Ot Z87.891 PERSONAL HISTORY OF NICOTINE DEPENDENCE 07/08/2018 JULIÁN ALEXIS MD Ot Z95.1 PRESENCE OF AORTOCORONARY BYPASS GRAFT 07/08/2018 JULIÁN ALEXIS MD Ot Z95.5 PRESENCE OF CORONARY ANGIOPLASTY IMPLANT 07/09/2018 JULIÁN ALEXIS MD, Ot D64.9 ANEMIA, UNSPECIFIED 07/09/2018 JULIÁN ALEXIS MD, Ot E11.9 TYPE 2 DIABETES MELLITUS WITHOUT COMPLIC 07/09/2018 JULIÁN ALEXIS MD, Ot E78.00 PURE HYPERCHOLESTEROLEMIA, UNSPECIFIED 07/09/2018 JULIÁN ALEXIS MD, Ot I10 ESSENTIAL (PRIMARY) HYPERTENSION 07/09/2018 JULIÁN ALEXIS MD, Ot I21.4 NON-ST ELEVATION (NSTEMI) MYOCARDIAL INF 07/09/2018 JULIÁN ALEXIS MD, Ot I25.810 ATHEROSCLEROSIS OF CABG W/O ANGINA PECTO 07/09/2018 JULIÁN ALEXIS MD, Ot J44.9 CHRONIC OBSTRUCTIVE PULMONARY DISEASE, U 07/09/2018 JULIÁN ALEXIS MD, Ot K92.2 GASTROINTESTINAL HEMORRHAGE, UNSPECIFIED 07/09/2018 JULIÁN ALEXIS MD, Ot M19.91 PRIMARY OSTEOARTHRITIS, UNSPECIFIED SITE 07/09/2018 JULIÁN ALEXIS MD, Ot N28.9 DISORDER OF KIDNEY AND URETER, UNSPECIFI 07/09/2018 JULIÁN ALEXIS MD, Ot N42.9 DISORDER OF PROSTATE, UNSPECIFIED 07/09/2018 JULIÁN ALEXIS MD, Ot R00.8 OTHER ABNORMALITIES OF HEART BEAT 07/09/2018 JULIÁN ALEXIS MD, Ot R07.9 CHEST PAIN, UNSPECIFIED 07/09/2018 JULIÁN ALEXIS MD, Ot R19.5 OTHER FECAL ABNORMALITIES 07/09/2018 JULIÁN ALEXIS MD, Ot Z79.02 SNF (CURRENT) USE OF ANTITHROMBOTI 07/09/2018 JULIÁN ALEXIS MD, Ot Z79.82 FOREIGN DIPLOMAT (CURRENT) USE OF ASPIRIN 07/09/2018 JULIÁN ALEXIS MD, Ot Z87.891 PERSONAL HISTORY OF NICOTINE DEPENDENCE 07/09/2018 JULIÁN ALEXIS MD, Ot Z95.1 PRESENCE OF AORTOCORONARY BYPASS GRAFT 07/09/2018 JULIÁN ALEXIS MD, Ot Z95.5 PRESENCE OF CORONARY ANGIOPLASTY IMPLANT Procedures Code [place] [id number] ROUTINE VENIPUNCTURE 08/21/2012 52747 CMP 08/21/2012 83918 CBC 08/21/2012 93528 ROUTINE VENIPUNCTURE 08/24/2012 12275 LIPID PANEL 08/24/[address] CHEST W/O DYE 09/10/2013 21553 ROUTINE VENIPUNCTURE 09/26/2013 [id number] GFR CALC (RESULT ONLY) 09/26/2013 98491 CMP 09/26/2013 48053 LIPID PANEL 09/26/2013 09392 CULTURE URINE 01/01/2014 60044 UA W/ CULTURE IF INDICATED 01/01/2014 Results Test Result Range Complete blood count (CBC) with automated white [...] NRG Manual blood lymphocytes/100 leukocytes 41 % NRG Manual eosinophils/100 leukocytes in nose 10 % NRG Blood erythrocyte morphology finding identification NORMAL NR Whole blood basic metabolic panel - 06/24/18 [...] resistant Staphylococcus aureus (MRSA) screening culture NEG NR Complete blood count (CBC) with automated white [...] 07/03/18 22:12 RED CELLS LEUKO REDUCED AS1 NOT AVAILABLE NRG Blood type T Indirect antibody screen panel - 07/03/18 22:12 ABO+Rh group AP NRG Transfusion band number [id number] NRG Blood group antibody screen NEGATIVE NRG [...] urine sediment by light microscopy RARE NRG RED CELLS LEUKO REDUCED AS1 - 07/03/18 22:12 RED CELLS LEUKO REDUCED AS1 TRANSFUSED 07/05/18 1050 NRG Blood type T Indirect antibody screen panel - 07/03/18 22:12 ABO+Rh group AP NRG Transfusion band number [id number] NRG Blood group antibody screen NEGATIVE NRG Methicillin resistant Staphylococcus aureus (MRSA) screening culture - 00:59 Methicillin resistant Staphylococcus aureus (MRSA) screening culture NEG NRG Complete blood count (CBC) with automated white blood cell (WBC) differential - 07/04/18 03:50 Blood leukocytes automated count (number/volume) 11.9 10*3/uL 4.3-11.0 Blood erythrocytes automated count (number/volume) 2.18 10*6/uL 4.35-5.85 Venous blood hemoglobin measurement (mass/volume) 6.5 g/dL 13.3-17.7 Blood hematocrit (volume fraction) 20 % 40-54 Automated erythrocyte mean corpuscular volume 92 [foz_us] 80-99 Automated erythrocyte mean corpuscular hemoglobin (mass per erythrocyte) 30 pg 25-34 Automated erythrocyte mean corpuscular hemoglobin concentration measurement ( mass/volume) 32 g/dL 32-36 Automated erythrocyte distribution width ratio 15.5 % 10.0-14.5 Automated blood platelet count (count/volume) 240 10*3/uL 130-400 Automated blood platelet mean volume measurement 9.8 [foz_us] 7.4-10.4 Automated blood neutrophils/100 leukocytes 66 % 42-75 Automated blood lymphocytes/100 leukocytes 21 % 12-44 Blood monocytes/100 leukocytes 7 % 0-12 Automated blood eosinophils/100 leukocytes 5 % 0-10 Automated blood basophils/100 leukocytes 0 % 0-10 Blood neutrophils automated count (number/volume) 7.9 10*3 1.8-7.8 Blood lymphocytes automated count (number/volume) 2.6 10*3 1.0-4.0 Blood monocytes automated count (number/volume) 0.8 10*3 0.0-1.0 Automated eosinophil count 0.6 10*3/uL 0.0-0.3 Automated blood basophil count (count/volume) 0.0 10*3/uL 0.0-0.1 Comprehensive metabolic panel - 07/04/18 03:50 Serum or plasma sodium measurement (moles/volume) 137 mmol/L 135-145 Serum or plasma potassium measurement (moles/volume) 3.9 mmol/L 3.6-5.0 Serum or plasma chloride measurement (moles/volume) 107 mmol/L 98-107 Carbon dioxide 21 mmol/L 21-32 Serum or plasma anion gap determination (moles/volume) 9 mmol/L 5-14 Serum or plasma urea nitrogen measurement (mass/volume) 29 mg/dL 7-18 Serum or plasma creatinine measurement (mass/volume) 1.28 mg/dL 0.60-1.30 Serum or plasma urea nitrogen/creatinine mass ratio 23 NRG Serum or plasma creatinine measurement with calculation of estimated glomerular filtration rate 56 NRG Serum or plasma glucose measurement (mass/volume) 233 mg/dL 70-105 Serum or plasma calcium measurement (mass/volume) 9.3 mg/dL 8.5-10.1 Serum or plasma total bilirubin measurement (mass/volume) 0.5 mg/dL 0.1-1.0 Serum or plasma alkaline phosphatase measurement (enzymatic activity/volume) 61 U/L 40-136 Serum or plasma aspartate aminotransferase measurement (enzymatic activity/ volume) 12 U/L 5-34 Serum or plasma alanine aminotransferase measurement (enzymatic activity/volume ) 21 U/L 0-55 Serum or plasma protein measurement (mass/volume) 5.8 g/dL 6.4-8.2 Serum or plasma albumin measurement (mass/volume) 3.3 g/dL 3.2-4.5 CALCIUM CORRECTED 9.9 mg/dL 8.5-10.1 Serum or plasma troponin i.cardiac measurement (mass/volume) - 07/04/18 03:50 Serum or plasma troponin i.cardiac measurement (mass/volume) < ng/ mL <0.028 Lipid 1996 panel - 07/04/18 03:50 Serum or plasma triglyceride measurement (mass/volume) 116 mg/dL <150 Serum or plasma cholesterol measurement (mass/volume) 104 mg/dL < 200 Serum or plasma cholesterol in HDL measurement (mass/volume) 28 mg/ dL 40-60 Cholesterol in LDL [mass/volume] in serum or plasma by direct assay 53 mg/dL 1-129 Serum or plasma cholesterol in VLDL measurement (mass/volume) 23 mg/ dL 5-40 Whole blood hemoglobin and hematocrit panel - 07/04/18 08:55 Venous blood hemoglobin measurement (mass/volume) 7.7 g/dL 13.3-17.7 Blood hematocrit (volume fraction) 23 % 40-54 Capillary blood glucose measurement by glucometer (mass/volume) - 07/04/18 17: 23 Capillary blood glucose measurement by glucometer (mass/volume) 177 mg/dL 70-110 Complete blood count (CBC) with automated white blood cell (WBC) differential - 07/05/18 03:20 Blood leukocytes automated count (number/volume) 8.7 10*3/uL 4.3-11.0 Blood erythrocytes automated count (number/volume) 2.32 10*6/uL 4.35-5.85 Venous blood hemoglobin measurement (mass/volume) 7.0 g/dL 13.3-17.7 Blood hematocrit (volume fraction) 21 % 40-54 Automated erythrocyte mean corpuscular volume 92 [foz_us] 80-99 Automated erythrocyte mean corpuscular hemoglobin (mass per erythrocyte) 30 pg 25-34 Automated erythrocyte mean corpuscular hemoglobin concentration measurement ( mass/volume) 33 g/dL 32-36 Automated erythrocyte distribution width ratio 17.3 % 10.0-14.5 Automated blood platelet count (count/volume) 251 10*3/uL 130-400 Automated blood platelet mean volume measurement 9.8 [foz_us] 7.4-10.4 Automated blood neutrophils/100 leukocytes 58 % 42-75 Automated blood lymphocytes/100 leukocytes 24 % 12-44 Blood monocytes/100 leukocytes 7 % 0-12 Automated blood eosinophils/100 leukocytes 11 % 0-10 Automated blood basophils/100 leukocytes 0 % 0-10 Blood neutrophils automated count (number/volume) 5.1 10*3 1.8-7.8 Blood lymphocytes automated count (number/volume) 2.1 10*3 1.0-4.0 Blood monocytes automated count (number/volume) 0.6 10*3 0.0-1.0 Automated eosinophil count 1.0 10*3/uL 0.0-0.3 Automated blood basophil count (count/volume) 0.0 10*3/uL 0.0-0.1 Whole blood basic metabolic panel - 07/05/18 03:20 Serum or plasma sodium measurement (moles/volume) 139 mmol/L 135-145 Serum or plasma potassium measurement (moles/volume) 4.2 mmol/L 3.6-5.0 Serum or plasma chloride measurement (moles/volume) 110 mmol/L 98-107 Carbon dioxide 19 mmol/L 21-32 Serum or plasma anion gap determination (moles/volume) 10 mmol/L 5-14 Serum or plasma urea nitrogen measurement (mass/volume) 20 mg/dL 7-18 Serum or plasma creatinine measurement (mass/volume) 1.09 mg/dL 0.60-1.30 Serum or plasma urea nitrogen/creatinine mass ratio 18 NRG Serum or plasma creatinine measurement with calculation of estimated glomerular filtration rate > NRG Serum or plasma glucose measurement (mass/volume) 133 mg/dL 70-105 Serum or plasma calcium measurement (mass/volume) 8.4 mg/dL 8.5-10.1 Capillary blood glucose measurement by glucometer (mass/volume) - 07/05/18 15: 51 Capillary blood glucose measurement by glucometer (mass/volume) 139 mg/dL 70-110 Whole blood hemoglobin and hematocrit panel - 07/05/18 20:40 Venous blood hemoglobin measurement (mass/volume) 9.2 g/dL 13.3-17.7 Blood hematocrit (volume fraction) 27 % 40-54 Complete blood count (CBC) with automated white blood cell (WBC) differential - 07/06/18 03:20 Blood leukocytes automated count (number/volume) 9.2 10*3/uL 4.3-11.0 Blood erythrocytes automated count (number/volume) 3.17 10*6/uL 4.35-5.85 Venous blood hemoglobin measurement (mass/volume) 9.6 g/dL 13.3-17.7 Blood hematocrit (volume fraction) 29 % 40-54 Automated erythrocyte mean corpuscular volume 90 [foz_us] 80-99 Automated erythrocyte mean corpuscular hemoglobin (mass per erythrocyte) 30 pg 25-34 Automated erythrocyte mean corpuscular hemoglobin concentration measurement ( mass/volume) 34 g/dL 32-36 Automated erythrocyte distribution width ratio 16.5 % 10.0-14.5 Automated blood platelet count (count/volume) 253 10*3/uL 130-400 Automated blood platelet mean volume measurement 9.6 [foz_us] 7.4-10.4 Automated blood neutrophils/100 leukocytes 52 % 42-75 Automated blood lymphocytes/100 leukocytes 29 % 12-44 Blood monocytes/100 leukocytes 7 % 0-12 Automated blood eosinophils/100 leukocytes 11 % 0-10 Automated blood basophils/100 leukocytes 0 % 0-10 Blood neutrophils automated count (number/volume) 4.8 10*3 1.8-7.8 Blood lymphocytes automated count (number/volume) 2.7 10*3 1.0-4.0 Blood monocytes automated count (number/volume) 0.6 10*3 0.0-1.0 Automated eosinophil count 1.0 10*3/uL 0.0-0.3 Automated blood basophil count (count/volume) 0.0 10*3/uL 0.0-0.1 Comprehensive metabolic panel - 07/06/18 03:20 Serum or plasma sodium measurement (moles/volume) 140 mmol/L 135-145 Serum or plasma potassium measurement (moles/volume) 3.8 mmol/L 3.6-5.0 Serum or plasma chloride measurement (moles/volume) 108 mmol/L 98-107 Carbon dioxide 21 mmol/L 21-32 Serum or plasma anion gap determination (moles/volume) 11 mmol/L 5-14 Serum or plasma urea nitrogen measurement (mass/volume) 17 mg/dL 7-18 Serum or plasma creatinine measurement (mass/volume) 1.05 mg/dL 0.60-1.30 Serum or plasma urea nitrogen/creatinine mass ratio 16 NRG Serum or plasma creatinine measurement with calculation of estimated glomerular filtration rate > NRG Serum or plasma glucose measurement (mass/volume) 152 mg/dL 70-105 Serum or plasma calcium measurement (mass/volume) 9.0 mg/dL 8.5-10.1 Serum or plasma total bilirubin measurement (mass/volume) 0.8 mg/dL 0.1-1.0 Serum or plasma alkaline phosphatase measurement (enzymatic activity/volume) 66 U/L 40-136 Serum or plasma aspartate aminotransferase measurement (enzymatic activity/ volume) 11 U/L 5-34 Serum or plasma alanine aminotransferase measurement (enzymatic activity/volume ) 13 U/L 0-55 Serum or plasma protein measurement (mass/volume) 5.8 g/dL 6.4-8.2 Serum or plasma albumin measurement (mass/volume) 3.3 g/dL 3.2-4.5 CALCIUM CORRECTED 9.6 mg/dL 8.5-10.1 Blood CBC with ordered manual differential panel - 07/07/18 04:05 Blood leukocytes automated count (number/volume) 7.7 10*3/uL 4.3-11.0 Blood erythrocytes automated count (number/volume) 3.03 10*6/uL 4.35-5.85 Venous blood hemoglobin measurement (mass/volume) 9.1 g/dL 13.3-17.7 Blood hematocrit (volume fraction) 28 % 40-54 Automated erythrocyte mean corpuscular volume 91 [foz_us] 80-99 Automated erythrocyte mean corpuscular hemoglobin (mass per erythrocyte) 30 pg 25-34 Automated erythrocyte mean corpuscular hemoglobin concentration measurement ( mass/volume) 33 g/dL 32-36 Automated erythrocyte distribution width ratio 16.4 % 10.0-14.5 Automated blood platelet count (count/volume) 247 10*3/uL 130-400 Automated blood platelet mean volume measurement 9.5 [foz_us] 7.4-10.4 Automated blood neutrophils/100 leukocytes 59 % 42-75 Automated blood lymphocytes/100 leukocytes 20 % 12-44 Blood monocytes/100 leukocytes 10 % NRG Automated blood eosinophils/100 leukocytes 13 % 0-10 Automated blood basophils/100 leukocytes 0 % 0-10 Blood neutrophils automated count (number/volume) 4.6 10*3 1.8-7.8 Blood lymphocytes automated count (number/volume) 1.6 10*3 1.0-4.0 Blood monocytes automated count (number/volume) 0.6 10*3 0.0-1.0 Automated eosinophil count 1.0 10*3/uL 0.0-0.3 Automated blood basophil count (count/volume) 0.0 10*3/uL 0.0-0.1 Manual blood segmented neutrophils/100 leukocytes 57 % NRG Manual blood lymphocytes/100 leukocytes 19 % NRG Manual eosinophils/100 leukocytes in nose 14 % NRG Blood polychromasia detection by light microscopy SLIGHT NRG Blood anisocytosis detection by light microscopy SLIGHT NRG Blood macrocytes detection by light microscopy SLIGHT NRG Blood microcytes detection by light microscopy SLIGHT NRG Stool occult blood screen - 07/07/18 09:00 Stool gastrointestinal hemoglobin detection POSITIVE NEGATIVE Complete blood count (CBC) with automated white blood cell (WBC) differential - 07/08/18 03:30 Blood leukocytes automated count (number/volume) 7.5 10*3/uL 4.3-11.0 Blood erythrocytes automated count (number/volume) 2.94 10*6/uL 4.35-5.85 Venous blood hemoglobin measurement (mass/volume) 8.8 g/dL 13.3-17.7 Blood hematocrit (volume fraction) 27 % 40-54 Automated erythrocyte mean corpuscular volume 91 [foz_us] 80-99 Automated erythrocyte mean corpuscular hemoglobin (mass per erythrocyte) 30 pg 25-34 Automated erythrocyte mean corpuscular hemoglobin concentration measurement ( mass/volume) 33 g/dL 32-36 Automated erythrocyte distribution width ratio 16.5 % 10.0-14.5 Automated blood platelet count (count/volume) 257 10*3/uL 130-400 Automated blood platelet mean volume measurement 9.3 [foz_us] 7.4-10.4 Automated blood neutrophils/100 leukocytes 53 % 42-75 Automated blood lymphocytes/100 leukocytes 24 % 12-44 Blood monocytes/100 leukocytes 8 % 0-12 Automated blood eosinophils/100 leukocytes 15 % 0-10 Automated blood basophils/100 leukocytes 0 % 0-10 Blood neutrophils automated count (number/volume) 4.0 10*3 1.8-7.8 Blood lymphocytes automated count (number/volume) 1.8 10*3 1.0-4.0 Blood monocytes automated count (number/volume) 0.6 10*3 0.0-1.0 Automated eosinophil count 1.1 10*3/uL 0.0-0.3 Automated blood basophil count (count/volume) 0.0 10*3/uL 0.0-0.1 Whole blood basic metabolic panel - 07/08/18 03:30 Serum or plasma sodium measurement (moles/volume) 138 mmol/L 135-145 Serum or plasma potassium measurement (moles/volume) 3.9 mmol/L 3.6-5.0 Serum or plasma chloride measurement (moles/volume) 108 mmol/L 98-107 Carbon dioxide 21 mmol/L 21-32 Serum or plasma anion gap determination (moles/volume) 9 mmol/L 5-14 Serum or plasma urea nitrogen measurement (mass/volume) 24 mg/dL 7-18 Serum or plasma creatinine measurement (mass/volume) 1.22 mg/dL 0.60-1.30 Serum or plasma urea nitrogen/creatinine mass ratio 20 NRG Serum or plasma creatinine measurement with calculation of estimated glomerular filtration rate 60 NRG Serum or plasma glucose measurement (mass/volume) 155 mg/dL 70-105 Serum or plasma calcium measurement (mass/volume) 8.9 mg/dL 8.5-10.1 Automated blood complete blood count (hemogram) panel - 07/09/18 05:35 Blood leukocytes automated count (number/volume) 7.2 10*3/uL 4.3-11.0 Blood erythrocytes automated count (number/volume) 2.97 10*6/uL 4.35-5.85 Venous blood hemoglobin measurement (mass/volume) 8.9 g/dL 13.3-17.7 Blood hematocrit (volume fraction) 27 % 40-54 Automated erythrocyte mean corpuscular volume 91 [foz_us] 80-99 Automated erythrocyte mean corpuscular hemoglobin (mass per erythrocyte) 30 pg 25-34 Automated erythrocyte mean corpuscular hemoglobin concentration measurement ( mass/volume) 33 g/dL 32-36 Automated erythrocyte distribution width ratio 15.7 % 10.0-14.5 Automated blood platelet count (count/volume) 278 10*3/uL 130-400 Automated blood platelet mean volume measurement 9.4 [foz_us] 7.4-10.4 Encounters ACCT No. Visit Date/Time Discharge Status Pt. Type Provider Facility Loc./Unit Complaint [id number] 01/01/2014 09:42:00 01/01/2014 23:59:59 [facility] Outpatient SAMANTA MARLOW DO [id number] 09/26/2013 08:02:00 09/26/2013 23:59:59 [facility] Outpatient SAMANTA MARLOW DO [id number] 09/10/2013 10:44:00 09/10/2013 23:59:59 [facility] Outpatient SAMANTA MARLOW DO [id number] 08/21/2012 09:29:00 08/21/2012 23:59:59 [facility] Outpatient SAMANTA MARLOW DO [id number] 10/19/2011 10:32:00 10/19/2011 23:59:59 [facility] Outpatient DIMITRI ABBASI, SALVATORE [id number] 08/24/2012 07:57:00 Document Registration [id number] 08/21/2012 09:29:00 Document Registration [id number] 07/03/2018 22:56:00 07/09/2018 15:10:00 DIS Inpatient REUBEN ABBASI, JULIÁN [facility] 4TH SEVERE ANEMIA, CHEST PAIN [id number] 07/01/2018 13:02:00 07/01/2018 14:13:00 DIS Emergency PILY BARBER [facility] ER POST HEART CATH 06/25, RASH [id number] 06/23/2018 18:59:00 06/26/2018 13:52:00 DIS Outpatient DIONNE ABBASI, RAMIRO Erickson [facility] ICU CHEST PAIN,CAD,HTN [id number] 09/17/2013 15:09:00 09/17/2013 23:59:59 CLS Outpatient
[2018-07-12 16:19] LABS: BASOPHILS % (AUTO) 0 % (0-10); EOSINOPHILS # (AUTO) 0.9 10^3/uL (0.0-0.3); EOSINOPHILS % (AUTO) 10 % (0-10); HEMATOCRIT 25 % (40-54); HEMOGLOBIN 7.9 G/DL (13.3-17.7); LYMPHOCYTES # (AUTO) 2.7 X 10^3 (1.0-4.0); LYMPHOCYTES % (AUTO) 29 % (12-44); MEAN CORPUSCULAR HEMOGLOBIN 30 PG (25-34); MEAN CORPUSCULAR HGB CONC 32 G/DL (32-36); MEAN CORPUSCULAR VOLUME 93 FL (80-99); MEAN PLATELET VOLUME 9.1 FL (7.4-10.4); MONOCYTES # (AUTO) 0.6 X 10^3 (0.0-1.0); MONOCYTES % (AUTO) 7 % (0-12); NEUTROPHILS # (AUTO) 4.9 X 10^3 (1.8-7.8); NEUTROPHILS % (AUTO) 54 % (42-75); PLATELET COUNT 317 10^3/uL (130-400); RED CELL DISTRIBUTION WIDTH 15.7 % (10.0-14.5); WHITE BLOOD COUNT 9.1 10^3/uL (4.3-11.0)
[2018-07-12 16:35] LABS: PROTHROMBIN TIME PATIENT 13.8 SEC (12.2-14.7)
[2018-07-12 16:40] LABS: ALANINE AMINOTRANSFERASE 16 U/L (0-55); ALBUMIN 3.8 GM/DL (3.2-4.5); ALKALINE PHOSPHATASE 66 U/L (40-136); BILIRUBIN,TOTAL 0.3 MG/DL (0.1-1.0); BUN/CREATININE RATIO 23; CALCIUM 9.5 MG/DL (8.5-10.1); CARBON DIOXIDE 25 MMOL/L (21-32); CHLORIDE 107 MMOL/L (98-107); CREATININE SERUM 1.15 MG/DL (0.60-1.30); GFR ESTIMATED > 60; GLUCOSE 133 MG/DL (70-105); POTASSIUM 4.4 MMOL/L (3.6-5.0); SODIUM 140 MMOL/L (135-145); TOTAL PROTEIN 6.9 GM/DL (6.4-8.2)
[2018-07-12 16:43] LABS: BILIRUBIN,URINE NEGATIVE (NEGATIVE); CLARITY,URINE SLIGHTLY CLOUDY; COLOR,URINE YELLOW; GLUCOSE, URINE (UA) NEGATIVE (NEGATIVE); KETONES,URINE NEGATIVE (NEGATIVE); LEUKOCYTE ESTERASE ,URINE 1+ (NEGATIVE); NITRITE,URINE NEGATIVE (NEGATIVE); PH,URINE 5 (5-9); PROTEIN,URINE 1+ (NEGATIVE); UROBILINOGEN,URINE NORMAL (NORMAL)
[2018-07-12 16:53] LABS: BACTERIA,URINE NEGATIVE /HPF; HYALINE CASTS, URINE RARE /LPF; RBC,URINE 0-2 /HPF; SQUAMOUS EPITHELIAL CELL,UR 0-2 /HPF; WBC,URINE 0-2 /HPF
[2018-07-12] MEDS ORDERED: NS (IVPB) 250 ML IV ONE (17:00)
[2018-07-12] MEDS ORDERED: PANTOPRAZOLE 40 MG (PROTONIX) VIAL IV ONE (17:00)
--- NOTE | 2018-07-12 17:15 | ED General ---
General Chief Complaint: Rect Problems Stated Complaint: BLOOD IN STOOL Nursing Triage Note: PT AMB TO TRIAGE WITH COMPLAINT OF BLOOD IN STOOL. PT WAS SENT OVER HERE FROM [facility] FOR LOW HGB 7.6. PT STATES HE WAS IN HOSPITAL OVER [facility] AND HGB WAS ABOVE 8. STATES HE SAW JENNINGS AND BELIEVES BLOOD IS FROM [facility]. Nursing Sepsis Screen: No Definite Risk Source of Information: Patient Exam Limitations: No Limitations History of Present Illness Date Seen by Provider: Jul 12, 2018 Time Seen by Provider: 17:13 Initial Comments To ER from [facility] with reports of low hemoglobin. Patient was discharged from hospital on 07/09/18 following coronary stenting and subsequent initiation of Plavix and aspirin. He then developed a GI bleed. Had EGD done which showed nonbleeding ulcer of the stomach and duodenitis. Was started on proton pump inhibitor but he couldn't afford the Protonix or*lansoprazole. He's been having some persistent dark stools. Went to [facility] for follow-up appointment today and had a hemoglobin of 7.6. Denies any chest pain shortness of breath but does report general malaise and weakness. Timing/Duration: 1-2 Days Severity: Moderate Associated Systoms: Denies Symptoms Allergies and Home Medications Allergies Coded Allergies: NKANo Known Allergies (Unverified Allergy, Mild, 07/20/09) Home Medications Aspirin 81 Mg Tablet., 81 MG PO DAILY, (Reported) Clopidogrel Bisulfate 75 Mg Tablet, 75 MG PO DAILY Prescribed by: JULIÁN ALEXIS on 07/09/18 1111 Metoprolol Tartrate 50 Mg Tablet, 50 MG PO DAILY, (Reported) [place] 3 Polyunsat Fatty Acids 1,000 Mg Cap, 1,000 MG PO BID, (Reported) Pantoprazole Sodium 40 Mg Tablet., 40 MG PO BID@0700,1700 Prescribed by: JULIÁN ALEXIS on 07/09/18 1111 Sucralfate 1 Gm Tablet, 1 GM PO ACHS Prescribed by: JULIÁN ALEXIS on 07/09/18 1111 Patient Home Medication List Home Medication List Reviewed: Yes Review of Systems Review of Systems Constitutional: see HPI EENTM: see HPI Respiratory: no symptoms reported Cardiovascular: no symptoms reported Genitourinary: no symptoms reported Musculoskeletal: no symptoms reported Skin: no symptoms reported Psychiatric/Neurological: No Symptoms Reported Hematologic/Lymphatic: No Symptoms Reported Immunological/Allergic: no symptoms reported Past Dxqoino-Iqtevy-Wtdmjs Hx Patient Social History Alcohol Use: Past History Recreational Drug Use: Yes (HX OF ETOH) Smoking Status: Former Smoker Type Used: Cigarettes Former Smoker, Quit: Jun 28, 2018 2nd Hand Smoke Exposure: Yes Recent Foreign Travel: No Contact w/Someone Who Travel: No Recent Infectious Disease Expo: No Recent Hopitalizations: Yes (07/09/18 [facility], BLOOD IN STOOL) Immunizations Up To Date Tetanus Booster (TDap): Unknown PED Vaccines UTD: Yes Date of Influenza Vaccine: Mar 04, 2011 Seasonal Allergies Seasonal Allergies: No Past Medical History Surgeries: Yes Abdominal, CABG, Coronary Stent Respiratory: Yes Asthma, COPD Currently Using CPAP: No Currently Using BIPAP: No Cardiac: Yes Coronary Artery Disease, Heart Attack, High Cholesterol, Hypertension, Palpitations Neurological: No Genitourinary: Yes Prostate Problems, Bladder Infection Gastrointestinal: No Musculoskeletal: Yes Arthritis Endocrine: No HEENT: Yes (False right eye) Cancer: No Psychosocial: No Integumentary: No Blood Disorders: No Family Medical History CAD Under 55 Years Old, Hypertension Physical Exam Vital Signs Vital Signs - First Documented 07/12/18 07/12/18 15:24 17:45 Temp 98.1 Pulse 78 Resp 20 B/P (MAP) 153/66 (95) Pulse Ox 99 O2 Delivery Room Air Capillary Refill : Less Than 3 Seconds Height, Weight, BMI Height: 6'0" Weight: 199lbs. 3.2oz. [id number]; 26.9 BMI Method:Stated General Appearance: No Apparent Distress, WD/WN Eyes: Bilateral Eye Normal Inspection, Bilateral Eye PERRL HEENT: PERRL/EOMI, TMs Normal Neck: Full Range of Motion, Normal Inspection Respiratory: Normal Breath Sounds, No Accessory Muscle Use, No Respiratory Distress Cardiovascular: Regular Rate, Rhythm, Normal Peripheral Pulses Gastrointestinal: Normal Bowel Sounds, Non Tender, Soft Extremity: Normal Capillary Refill, Normal Inspection Neurologic/Psychiatric: Alert, Oriented x3 Skin: Normal Color, Warm/Dry Progress/Results/Core Measures Suspected Sepsis Recent Fever Within 48 Hours: No Infection Criteria Present: None New/Unexplained Altered Menta: No Sepsis Screen: No Definite Risk SIRS Temperature: Pulse: 78 Respiratory Rate: 20 Laboratory Tests 07/12/18 16:05: White Blood Count 9.1 Blood Pressure 153 /66 Mean: 95 Laboratory Tests 07/12/18 16:05: Creatinine 1.15, INR Comment 1.0, Platelet Count 317, Total Bilirubin 0.3 Results/Orders Lab Results Laboratory Tests Test 07/12/18 16:05 07/12/18 16:36 Range/Units White Blood Count 9.1 4.3-11.0 10^3/uL Red Blood Count 2.66 L 4.35-5.85 10^6/uL Hemoglobin 7.9 L 13.3-17.7 G/DL Hematocrit 25 L 40-54 % Mean Corpuscular Volume 93 80-99 FL Mean Corpuscular Hemoglobin 30 25-34 PG Mean Corpuscular Hemoglobin Concent 32 32-36 G/DL Red Cell Distribution Width 15.7 H 10.0-14.5 % Platelet Count 317 130-400 10^3/uL Mean Platelet Volume 9.1 7.4-10.4 FL Neutrophils (%) (Auto) 54 42-75 % Lymphocytes (%) (Auto) 29 12-44 % Monocytes (%) (Auto) 7 0-12 % Eosinophils (%) (Auto) 10 0-10 % Basophils (%) (Auto) 0 0-10 % Neutrophils # (Auto) 4.9 1.8-7.8 X 10^3 Lymphocytes # (Auto) 2.7 1.0-4.0 X 10^3 Monocytes # (Auto) 0.6 0.0-1.0 X 10^3 Eosinophils # (Auto) 0.9 H 0.0-0.3 10^3/uL Basophils # (Auto) 0.0 0.0-0.1 10^3/uL Prothrombin Time 13.8 12.2-14.7 SEC INR Comment 1.0 0.8-1.4 Activated Partial Thromboplast Time 31 24-35 SEC Sodium Level 140 135-145 MMOL/L Potassium Level 4.4 3.6-5.0 MMOL/L Chloride Level 107 98-107 MMOL/L Carbon Dioxide Level 25 21-32 MMOL/L Anion Gap 8 5-14 MMOL/L Blood Urea Nitrogen 26 H 7-18 MG/DL Creatinine 1.15 0.60-1.30 MG/DL Estimat Glomerular Filtration Rate > 60 BUN/Creatinine Ratio 23 Glucose Level 133 H 70-105 MG/DL Calcium Level 9.5 8.5-10.1 MG/DL Corrected Calcium 9.7 8.5-10.1 MG/DL Total Bilirubin 0.3 0.1-1.0 MG/DL Aspartate Amino Transf (AST/SGOT) 12 5-34 U/L Alanine Aminotransferase (ALT/SGPT) 16 0-55 U/L Alkaline Phosphatase 66 40-136 U/L B-Type Natriuretic Peptide 78.1 <100.0 PG/ML Total Protein 6.9 6.4-8.2 GM/DL Albumin 3.8 3.2-4.5 GM/DL Urine Color YELLOW Urine Clarity SLIGHTLY CLOUDY Urine pH 5 5-9 Urine Specific [place] 1.015 L 1.016-1.022 Urine Protein 1+ H NEGATIVE Urine Glucose (UA) NEGATIVE NEGATIVE Urine Ketones NEGATIVE NEGATIVE Urine Nitrite NEGATIVE NEGATIVE Urine Bilirubin NEGATIVE NEGATIVE Urine Urobilinogen NORMAL NORMAL MG/DL Urine Leukocyte Esterase 1+ H NEGATIVE Urine RBC (Auto) 1+ H NEGATIVE Urine RBC 0-2 /HPF Urine WBC 0-2 /HPF Urine Squamous Epithelial Cells 0-2 /HPF Urine Crystals NONE /LPF Urine Bacteria NEGATIVE /HPF Urine Casts PRESENT /LPF Urine Hyaline Casts RARE /LPF Urine Mucus NEGATIVE /LPF Urine Culture Indicated NO My Orders Orders - RAJANI WASHINGTON APRN Cbc With Automated Diff (07/12/18 15:28) Comprehensive Metabolic Panel (07/12/18 15:28) BNP (07/12/18 15:28) Ua Culture If Indicated (07/12/18 15:28) Ed Iv/Invasive Line Start (07/12/18 15:28) Protime With Inr (07/12/18 15:28) Partial Thromboplastin Time (07/12/18 15:28) Red Cells Leukocytes Reduced (07/12/18 16:59) Pantoprazole Injection (Protonix Injecti (07/12/18 17:00) Ns (Ivpb) (Sodium Chloride 0.9%) (07/12/18 17:00) Type And Screen (07/12/18 16:59) Medications Given in ED Current Medications Medications Dose Ordered Sig/Naomie Route Start Time Stop Time Status Last Admin Dose Admin Pantoprazole 40 mg ONCE ONCE IV 07/12/18 17:00 07/12/18 17:01 DC 07/12/18 17:31 40 MG Sodium Chloride 250 ml @ 999 mls/hr Q16M ONCE IV 07/12/18 17:00 07/12/18 17:15 DC 07/12/18 17:42 999 MLS/HR Vital Signs/I&O 07/12/18 07/12/18 07/12/18 07/12/18 15:24 17:45 18:00 18:30 Temp 98.1 98.0 97.9 Pulse 78 73 64 69 Resp 20 20 18 18 B/P (MAP) 153/66 (95) 174/81 166/ 150/70 Pulse Ox 99 99 94 97 O2 Delivery Room Air Room Air Capillary Refill : Less Than 3 Seconds Blood Pressure Mean: 95 Departure Communication (Admissions) I discussed the case with Dr. Jennings. Agrees with transfusion of 1 unit of packed red cells, discharged home with follow-up with primary care. I also spoke with Dr. Suh orthopedic surgeon for [facility], agrees to have the clinic call him tomorrow to make an appointment for follow-up since he is asymptomatic. Impression Primary Impression: GI bleeding Qualified Codes: K29.81 - Duodenitis with bleeding Disposition: HOME, SELF-CARE Condition: Improved Departure-Patient Inst. Decision time for Depature: 17:25 Referrals: [facility] (PCP) Primary Care Physician KISHA PERDOMO APRN (Family) Primary Care Physician BALBIR JENNINGS DO Patient Instructions: Gastrointestinal Bleeding Add. Discharge Instructions: 1. Return promptly to the emergency room for any chest pain shortness of breath lightheadedness or passing out. Call [facility] tomorrow if they do not call you by noon to make an appointment to be seen for follow-up either tomorrow or Tuesday. Call Dr. Jennings's office tomorrow as well. All discharge instructions reviewed with patient and/or family. Voiced understanding. Copy Copies To 1: SAMANTA SUH DO; BALBIR JENNINGS DO; RAMIRO TRUONG MD, PETER J APRN Jul 12, 2018 17:15
[2018-07-12 17:45] VITALS: BP 174/81
[2018-07-12 18:00] VITALS: BP_SYST 166
[2018-07-12 18:30] VITALS: BP 150/70
[2018-07-12] MEDS ORDERED: cloNIDine 0.1 MG (CATAPRES) TAB PO ONE ×2 (19:30→20:15)
--- NOTE | 2018-07-12 19:30 | NUR ---
PT CURRENT BP 181/95. PT REPORTS @ THIS TIME YESTERDAY EVENING (07/11/18) HIS BP INCREASED AND TOOK A PRN METOPROLOL. PROVIDER NOTIFIED OF CURRENT BP.
[2018-07-12 20:15] VITALS: BP 176/82
[2018-07-12 20:30] VITALS: BP 173/75
== END 2018-07-12 20:30 | disposition home or self-care (01) ==
LOC: EDUNIT# 14:50 → ER 14:51
DX: K92.2 Gastrointestinal hemorrhage, unspecified (principal); J44.9 Chronic obstructive pulmonary disease, unspecified; I25.10 Atherosclerotic heart disease of native coronary artery without angina pectoris; I10 Essential (primary) hypertension; E78.00 Pure hypercholesterolemia, unspecified; I25.2 Old myocardial infarction; Z82.49 Family history of ischemic heart disease and other diseases of the circulatory system; Z87.448 Personal history of other diseases of urinary system; Z95.5 Presence of coronary angioplasty implant and graft; Z79.01 Long term (current) use of anticoagulants; Z79.82 Long term (current) use of aspirin; Z87.891 Personal history of nicotine dependence; Z95.1 Presence of aortocoronary bypass graft
CPT/HCPCS: 36415; 80053; 81000; 83880; 85025; 85610; 85730; 86850; 86900; 86901; 86920

== ENCOUNTER 2020-03-04 09:28 | Day surgery (SDC) | payer SELFPAY ==
[~2020-03-04] VITALS: Ht 182.8 cm; Wt 86.8 kg
[~2020-03-04 09:28] MED LIST changes: +ASPI-1238 PO; -ASPI-983 PO; -METO-370 PO; +METO50TA7 PO; -PANT40TA3 PO; +PANT40TA52 PO
[2020-03-04 10:16] LABS: BASOPHILS % (AUTO) 0 % (0-10); EOSINOPHILS # (AUTO) 0.2 10^3/uL (0.0-0.3); EOSINOPHILS % (AUTO) 4 % (0-10); HEMATOCRIT 26 % (40-54); HEMOGLOBIN 7.4 g/dL (13.3-17.7); LYMPHOCYTES # (AUTO) 1.1 10^3/uL (1.0-4.0); LYMPHOCYTES % (AUTO) 20 % (12-44); MEAN CORPUSCULAR HEMOGLOBIN 25 pg (25-34); MEAN CORPUSCULAR HGB CONC 29 g/dL (32-36); MEAN CORPUSCULAR VOLUME 87 fL (80-99); MEAN PLATELET VOLUME 10.1 fL (9.0-12.2); MONOCYTES # (AUTO) 0.5 10^3/uL (0.0-1.0); MONOCYTES % (AUTO) 8 % (0-12); NEUTROPHILS # (AUTO) 3.8 10^3/uL (1.8-7.8); NEUTROPHILS % (AUTO) 67 % (42-75); PLATELET COUNT 371 10^3/uL (130-400); WHITE BLOOD COUNT 5.7 10^3/uL (4.3-11.0)
[2020-03-04 10:24] LABS: ALBUMIN 3.8 GM/DL (3.2-4.5); POTASSIUM 4.3 MMOL/L (3.6-5.0)
[2020-03-04 10:25] LABS: CALCIUM 9.3 MG/DL (8.5-10.1)
[2020-03-04 10:27] LABS: TOTAL PROTEIN 8.1 GM/DL (6.4-8.2)
[2020-03-04 10:28] LABS: PROTHROMBIN TIME PATIENT 13.3 SEC (12.2-14.7)
[2020-03-04 10:29] LABS: BILIRUBIN,TOTAL 0.2 MG/DL (0.1-1.0)
[2020-03-04 10:30] LABS: CREATININE SERUM 1.58 MG/DL (0.60-1.30)
--- NOTE | 2020-03-04 11:18 | ED General ---
General Chief Complaint: General Problems/Pain Stated Complaint: LOW BLOOD LEVELS Nursing Triage Note: AMB TO ROOM WAS SENT BY [facility] BECAUSE OF LOW HGB. 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 . He is feeling okay, he has had 17 blood transfusions. No fevers chills or abdominal pain. He does not notice any obviously black or tarry stools. Currently he is not on any anticoagulation or antiplatelet agents he states. He finished his Plavix after having a left carotid endarterectomy last month. He typically saw [facility] in [place] and has had EGD as well as colonoscopy and capsule endoscopy. Timing/Duration: 1-2 Days Severity: Moderate Associated Systoms: No Headaches, No Nausea/Vomiting Allergies and Home Medications Allergies Coded Allergies: NKANo Known Allergies (Unverified Allergy, Mild, 07/20/09) Home Medications Aspirin 81 Mg Tablet., 81 MG PO DAILY, (Reported) Clopidogrel Bisulfate 75 Mg Tablet, 75 MG PO DAILY Prescribed by: JULIÁN ALEXIS on 07/09/18 1111 Metoprolol Tartrate 50 Mg Tablet, 50 MG PO DAILY, (Reported) [place] 3 Polyunsat Fatty Acids 1,000 Mg Cap, 1,000 MG PO BID, (Reported) Pantoprazole Sodium 40 Mg Tablet., 40 MG PO BID@0700,1700 Prescribed by: JULIÁN ALEXIS on 07/09/18 1111 Sucralfate 1 Gm Tablet, 1 GM PO ACHS Prescribed by: JULIÁN ALEXIS on 07/09/18 1111 Patient Home Medication List Home Medication List Reviewed: Yes Review of Systems Review of Systems Constitutional: see HPI EENTM: see HPI Respiratory: no symptoms reported Cardiovascular: no symptoms reported Genitourinary: no symptoms reported Musculoskeletal: no symptoms reported Skin: no symptoms reported Psychiatric/Neurological: No Symptoms Reported Hematologic/Lymphatic: No Symptoms Reported Immunological/Allergic: no symptoms reported Past Siecehb-Cyqpxj-Fbcrnn Hx Patient Social History Alcohol Use: Denies Use Recreational Drug Use: Yes (HX OF ETOH) Smoking Status: Former Smoker Type Used: Cigarettes Former Smoker, Quit: Jun 28, 2018 2nd Hand Smoke Exposure: Yes Recent Foreign Travel: No Contact w/Someone Who Travel: No Recent Infectious Disease Expo: No Recent Hopitalizations: Yes (07/09/18 [facility], BLOOD IN STOOL) Immunizations Up To Date Tetanus Booster (TDap): Unknown PED Vaccines UTD: Yes Date of Influenza Vaccine: Mar 04, 2011 Seasonal Allergies Seasonal Allergies: No Past Medical History Surgeries: Yes Abdominal, CABG, Coronary Stent Respiratory: Yes Asthma, COPD Currently Using CPAP: No Currently Using BIPAP: No Cardiac: Yes Coronary Artery Disease, Heart Attack, High Cholesterol, Hypertension, Palpitations Neurological: No Genitourinary: Yes Prostate Problems, Bladder Infection Gastrointestinal: No Musculoskeletal: Yes Arthritis Endocrine: No HEENT: Yes (False right eye) Cancer: No Psychosocial: No Integumentary: No Blood Disorders: No Family Medical History CAD Under 55 Years Old, Hypertension Physical Exam Vital Signs Vital Signs - First Documented 03/04/20 09:48 Temp 36.4 Pulse 70 Resp 18 B/P (MAP) 149/69 (95) Pulse Ox 98 O2 Delivery Room Air Capillary Refill : Less Than 3 Seconds Height, Weight, BMI Height: 6'0" Weight: 199lbs. 3.2oz. 90.447082cj; 25.00 BMI Method:Stated General Appearance: No Apparent Distress, WD/WN, Other (And oriented very pleasant no distress) Eyes: Bilateral Eye Normal Inspection, Bilateral Eye PERRL, Bilateral Eye EOMI Neck: Full Range of Motion, Normal Inspection Respiratory: No Accessory Muscle Use, No Respiratory Distress Cardiovascular: Regular Rate, Rhythm, Normal Peripheral Pulses Gastrointestinal: Normal Bowel Sounds, Non Tender, Soft Extremity: Normal Capillary Refill, Normal Inspection Neurologic/Psychiatric: Alert, Oriented x3 Skin: Normal Color, Warm/Dry Progress/Results/Core Measures Suspected Sepsis Recent Fever Within 48 Hours: No Infection Criteria Present: None New/Unexplained Altered Menta: No Sepsis Screen: No Definite Risk SIRS Temperature: Pulse: 70 Respiratory Rate: 18 Laboratory Tests 03/04/20 10:06: White Blood Count 5.7 Blood Pressure 149 /69 Mean: 95 Laboratory Tests 03/04/20 10:06: Creatinine 1.58H, INR Comment 1.0, Platelet Count 371, Total Bilirubin 0.2 Results/Orders Lab Results Laboratory Tests Test 03/04/20 10:06 03/04/20 15:31 Range/Units White Blood Count 5.7 4.3-11.0 10^3/uL Red Blood Count 2.98 L 4.30-5.52 10^6/uL Hemoglobin 7.4 L 8.1 L 13.3-17.7 g/dL Hematocrit 26 L 28 L 40-54 % Mean Corpuscular Volume 87 80-99 fL Mean Corpuscular Hemoglobin 25 25-34 pg Mean Corpuscular Hemoglobin Concent 29 L 32-36 g/dL Red Cell Distribution Width 20.5 H 10.0-14.5 % Platelet Count 371 130-400 10^3/uL Mean Platelet Volume 10.1 9.0-12.2 fL Immature Granulocyte % (Auto) 0 % Neutrophils (%) (Auto) 67 42-75 % Lymphocytes (%) (Auto) 20 12-44 % Monocytes (%) (Auto) 8 0-12 % Eosinophils (%) (Auto) 4 0-10 % Basophils (%) (Auto) 0 0-10 % Neutrophils # (Auto) 3.8 1.8-7.8 10^3/uL Lymphocytes # (Auto) 1.1 1.0-4.0 10^3/uL Monocytes # (Auto) 0.5 0.0-1.0 10^3/uL Eosinophils # (Auto) 0.2 0.0-0.3 10^3/uL Basophils # (Auto) 0.0 0.0-0.1 10^3/uL Immature Granulocyte # (Auto) 0.0 0.0-0.1 10^3/uL Prothrombin Time 13.3 12.2-14.7 SEC INR Comment 1.0 0.8-1.4 Activated Partial Thromboplast Time 34 24-35 SEC Sodium Level 136 135-145 MMOL/L Potassium Level 4.3 3.6-5.0 MMOL/L Chloride Level 103 98-107 MMOL/L Carbon Dioxide Level 23 21-32 MMOL/L Anion Gap 10 5-14 MMOL/L Blood Urea Nitrogen 23 H 7-18 MG/DL Creatinine 1.58 H 0.60-1.30 MG/DL Estimat Glomerular Filtration Rate 44 BUN/Creatinine Ratio 15 Glucose Level 165 H 70-105 MG/DL Calcium Level 9.3 8.5-10.1 MG/DL Corrected Calcium 9.5 8.5-10.1 MG/DL Total Bilirubin 0.2 0.1-1.0 MG/DL Aspartate Amino Transf (AST/SGOT) 35 H 5-34 U/L Alanine Aminotransferase (ALT/SGPT) 24 0-55 U/L Alkaline Phosphatase 127 40-136 U/L Total Protein 8.1 6.4-8.2 GM/DL Albumin 3.8 3.2-4.5 GM/DL My Orders Orders - RAJANI WASHINGTON APRN Ns Iv 500 Ml (Sodium Chloride 0.9%) (03/04/20 12:08) Ns Iv 500 Ml (Sodium Chloride 0.9%) (03/04/20 12:30) Hemoglobin And Hematocrit (03/04/20 15:21) Vital Signs/I&O 03/04/20 03/04/20 03/04/20 03/04/20 09:48 11:32 12:15 12:24 Temp 36.4 36.0 36.0 Pulse 70 69 69 68 Resp 18 18 16 16 B/P (MAP) 149/69 (95) 136/69 131/61 127/66 Pulse Ox 98 97 99 98 O2 Delivery Room Air Room Air Room Air Room Air 03/04/20 03/04/20 12:38 15:23 Temp 36.3 36.1 Pulse 67 72 Resp 18 18 B/P (MAP) 137/69 141/60 Pulse Ox 98 95 O2 Delivery Room Air Room Air Capillary Refill : Less Than 3 Seconds Blood Pressure Mean: 95 Departure Impression Primary Impression: Anemia Additional Impression: Chronic GI bleeding Disposition: 01 HOME, SELF-CARE Condition: Stable Departure-Patient Inst. Decision time for Depature: 11:25 Referrals: [facility] [place] (PCP) Primary Care Physician KISHA PERDOMO APRN (Family) Primary Care Physician Patient Instructions: Gastrointestinal Bleeding Add. Discharge Instructions: Return to ER for any concerns 2. Follow-up with your doctor next week 3. All discharge instructions reviewed with patient and/or family. Voiced understanding. RAJANI WASHINGTON APRN Mar 04, 2020 11:18
--- NOTE | 2020-03-04 11:25 | NUR ---
CALLED AND GAVE REPORT TO [facility].
--- NOTE | 2020-03-04 11:39 | NUR ---
UPDATE GIVEN TO INFORMED HE WILL BE GOING TO [facility].
[2020-03-04] MEDS ORDERED: NS IV 500 ML 500 ML ONE (12:08)
[2020-03-04 12:15] VITALS: BP 131/61
[2020-03-04 12:24] VITALS: BP 127/66
[2020-03-04] MEDS ORDERED: NS IV 500 ML 500 ML IV ONE (12:30)
[2020-03-04 12:38] VITALS: BP 137/69
[2020-03-04 15:23] VITALS: BP 141/60
[2020-03-04 15:37] LABS: HEMOGLOBIN 8.1 g/dL (13.3-17.7)
== END 2020-03-04 15:45 | disposition home or self-care (01) ==
LOC: EDUNIT# 09:28 → ER 09:29 → SDC 11:48
PROVIDERS: ATTEND Nurse Practitioner Family
DX: D50.0 Iron deficiency anemia secondary to blood loss (chronic) (principal); K92.2 Gastrointestinal hemorrhage, unspecified; Q27.30 Arteriovenous malformation, site unspecified; J45.909 Unspecified asthma, uncomplicated; I10 Essential (primary) hypertension; E78.00 Pure hypercholesterolemia, unspecified; I25.10 Atherosclerotic heart disease of native coronary artery without angina pectoris; M19.90 Unspecified osteoarthritis, unspecified site; Z79.82 Long term (current) use of aspirin; Z79.899 Other long term (current) drug therapy; Z87.891 Personal history of nicotine dependence; Z95.1 Presence of aortocoronary bypass graft; Z95.5 Presence of coronary angioplasty implant and graft
CPT/HCPCS: 36430; 80053; 85014; 85018; 85025; 85610; 85730; 86850; 86900; 86901; 86920; 99284; P9016; 36415